=== PATIENT | female | born 1965 | race Caucasian/White ===

== ENCOUNTER 2017-05-07 14:02 | Emergency (ER) | payer BC ==
--- NOTE | 2017-05-07 14:15 | UC ---
Throat Pain/Nasal Andre HPI - HPI Summary HPI Summary: complaint of cough and nasal congestion that started 2 days ago productive cough sore throat mild headache left ear pain denies fever and chills using cough drops without relief requesting a z-pack - History of Current Complaint Hx Obtained From: Patient <Myah Morrissey - Last Filed: 05/07/17 14:30> <Dora Almeida - Last Filed: 05/08/17 14:24> - History of Current Complaint Chief Complaint: UCRespiratory Stated Complaint: SORE THROAT Time Seen by Provider: 05/07/17 14:08 - Allergies/Home Medications Allergies/Adverse Reactions: Allergies Allergy/AdvReac Type Severity Reaction Status Date / Time Phenobarbital Allergy Difficulty Verified 08/10/16 15:25 Breathing PMH/Surg Hx/FS Hx/Imm Hx Previously Healthy: Yes Cardiovascular History: Hypertension Neurological History: Seizures - Surgical History Surgical History: Yes Surgery Procedure, Year, and Place: left temporal lobe surgery - scraped off part of brain that causeed seizures. varicose vein surg - Family History Known Family History: Positive: Cardiac Disease - denies hx of renal, respiratory. Denies blood disorders in family., Diabetes Negative: Hypertension - Social History Occupation: Employed Full-time Lives: With Family Alcohol Use: Daily Alcohol Amount: 12 pk/day Substance Use Type: None Substance Use Comment - Amount & Last Used: Last tuesday or ; Day before pt was admin. Smoking Status (MU): Never Smoked Tobacco Have You Smoked in the Last Year: No - Immunization History Most Recent Influenza Vaccination: none Most Recent Tetanus Shot: unknown Most Recent Pneumonia Vaccination: none <Myah Morrissey - Last Filed: 05/07/17 14:30> Review of Systems Constitutional: Negative Skin: Negative Eyes: Negative ENT: Sore Throat, Ear Ache, Nasal Discharge Respiratory: Cough Cardiovascular: Negative Gastrointestinal: Negative Genitourinary: Negative Motor: Negative Neurovascular: Negative Musculoskeletal: Negative Neurological: Negative Psychological: Negative All Other Systems Reviewed And Are Negative: Yes <Myah Morrissey - Last Filed: 05/07/17 14:30> Physical Exam Triage Information Reviewed: Yes Appearance: No Pain Distress, Well-Nourished Vital Signs: Initial Vital Signs Temp 98.1 F 05/07/17 14:04 Pulse 84 05/07/17 14:04 Resp 16 05/07/17 14:04 Pulse Ox 100 05/07/17 14:04 Vital Signs Reviewed: Yes Eyes: Positive: Conjunctiva Clear ENT: Positive: Pharyngeal erythema, Nasal congestion, Nasal drainage, TMs normal. Negative: Tonsillar swelling, Tonsillar exudate Neck: Positive: No Lymphadenopathy Respiratory: Positive: Lungs clear, Normal breath sounds, No respiratory distress Cardiovascular: Positive: RRR, No Murmur, Pulses Normal Abdomen Description: Positive: Nontender, Soft Bowel Sounds: Positive: Present Musculoskeletal: Positive: No Edema Neurological: Positive: Alert Psychological Exam: Normal Skin Exam: Normal <Myah Morrissey - Last Filed: 05/07/17 14:30> Vital Signs: Initial Vital Signs Temp 98.1 F 05/07/17 14:04 Pulse 84 05/07/17 14:04 Resp 16 05/07/17 14:04 Pulse Ox 100 05/07/17 14:04 <Dora Almeida - Last Filed: 05/08/17 14:24> Throat Pain/Nasal Course/Dx - Differential Dx/Diagnosis Differential Diagnosis/HQI/PQRI: Pharyngitis, Tonsillitis, URI Provider Diagnoses: URI <Myah Morrissey - Last Filed: 05/07/17 14:30> Discharge <Myah Morrissey - Last Filed: 05/07/17 14:30> <Dora Almeida - Last Filed: 05/08/17 14:24> - Discharge Plan Condition: Stable Disposition: HOME Prescriptions: Benzonatate CAP* [Tessalon 100 MG CAP*] 100 mg PO TID #30 cap Patient Education Materials: Upper Respiratory Infection (ED) Referrals: Orlin Zacarias NP [Primary Care Provider] - Additional Instructions: VIRAL UPPER RESPIRATORY INFECTION (COMMON COLD) What is Viral Upper Respiratory Infection? Viral upper respiratory infection is the medical term for the common cold. Respiratory infections can be caused by either a virus or bacteria. The common cold is caused by a virus. The virus travels through the air and can be passed easily from one person to another. This is one reason that it is so important to cover your mouth when you cough or sneeze. When you cover your mouth you will get the virus on your hands. If you touch something with that hand the virus is spread to the object you touch. Because of this you should be sure to wash your hands often when you have a cold. Symptoms usually begin 1 to 3 days after the virus takes hold in your body. Other people can catch your cold even before you start to notice symptoms, which is one reason why colds are hard to prevent. Symptoms May Include: Scratchiness or tickling in the throat Sore throat Stuffy nose Generalized aches and pains Coughing or sneezing Feeling tired Treatment Recommendations: Drink plenty of clear, nonalcoholic fluids, such as water, sports drinks, or juice. For example, an average adult should drink 8 ounces every hour, a child 6 to 10 years should drink 4 ounces every hour, and a child under 6 should drink 1 to 2 ounces every hour. You should rest as much as possible. You can use a cool-mist humidifier or steam vaporizer to increase air moisture. This will make it easier to breathe. Remember that a steam vaporizer may contain hot water that can cause severe briones. If you smoke, stopsmoke irritates bronchial passages. If you are coughing up mucus, and milk seems to make the sputum thicker, do not eat or drink foods that contain milk. You want to try to cough up mucous whenever possible so that you dont get pneumonia. Do not use cough suppressant medicine without your healthcare providers OK. You should take all medications prescribed until completely gone, or as instructed. Non-prescription medicine such as acetaminophen (Tylenol) or ibuprofen (Motrin , Advil) may help your aches, pains, and fever. Do not take someone else's medicine, or penicillin tablets that you may have saved. You could cause a more serious problem than you already have. Don't bundle up to sweat out a fever. It only makes your fever worse. If you feel cold, cover up; if you feel warm, dress lightly. Attestation Statement User Type: Provider - I was available for consult. This patient was seen by the advanced practice provider. The patient was not presented to, seen by, or examined by me.-Christina <Dora Almeida - Last Filed: 05/08/17 14:24>
== END 2017-05-07 14:37 | disposition home or self-care (01) ==
LOC: UCEAST 14:02
DX: J06.9 Acute upper respiratory infection, unspecified (principal); I10 Essential (primary) hypertension; R56.9 Unspecified convulsions
CPT/HCPCS: 87651; 99212; G0463

== ENCOUNTER 2019-11-15 16:41 | Inpatient (IN) | payer BC ==
--- OUTSIDE RECORDS SUMMARY | 2019-11-15 16:50 | XMS REPORT | Continuity of Care Document ---
:1965 External Reference #:[id number] Author Name Luis Fernando Macias M.D. (transmitted by agent of provider Jami Conti) Address [address], [place] [address] Care Team Providers Name Role Phone Kd Israel MD - Hematology & Care Team Information [employer] Assembler Oncology John Vivar MD - Surgery Care Team Information [employer]ator As[employer]er [phone] Problems Active Problems Provider Date Cervical spondylosis without myelopathy Justin Johnson M.D. Onset: 08/10/2012 Chronic pain syndrome Justin Johnson M.D. Onset: 08/10/2012 Medications Director Of Gift Planning (Current) Use Justin Johnson M.D. Onset: 08/10/2012 Encounter Spontaneous ecchymosis Justin Johnson M.D. Onset: 08/10/2012 Depressive disorder Justin Johnson M.D. Onset: 09/21/2012 Partial seizure evolving to secondary April Robles M.D. Onset: 2014 generalized seizure Social History Type Date Description Comments Sex Unknown Tobacco Use Start: Unknown Never Smoked Cigarettes Smoking Status Reviewed: 09/19/19 Never Smoked Cigarettes ETOH Use Occasionally consumes alcohol Tobacco Use Start: Unknown Patient has never smoked Recreational Drug Use Denies Drug Use Exercise Type/Frequency Exercises regularly Allergies, Adverse Reactions, Alerts Active Allergies Reaction Severity Comments Date Phenobarbital 03/11/2011 Medications Active Medications SIG Qnty Indications Ordering Provider Date Carbamazepine 1 tab by 360tabs Luis Fernando Macias, 10/24/2012 200mg mouth four M.D. Tablets times a day Womens One Daily 1 tab by Unknown Tablets mouth daily Immunizations Description No Information Available Vital Signs Date Vital Result Comment 09/19/2019 9:15am Height 68 inches 5'8" Weight 130.00 lb per patient after being in hospital Heart Rate 89 /min BP Systolic Sitting 134 mmHg BP Diastolic Sitting 84 mmHg Respiratory Rate 16 /min O2 % BldC Oximetry 99 % BMI (Body Mass Index) 19.8 kg/m2 09/13/2018 9:21am Height 68 inches 5'8" Weight 156.12 lb Heart Rate 72 /min BP Systolic Sitting 144 mmHg BP Diastolic Sitting 80 mmHg Respiratory Rate 12 /min BMI (Body Mass Index) 23.7 kg/m2 Results Description No Information Available Procedures Description No Information Available Medical Devices Description No Information Available Encounters Description No Information Available Assessments Date Code Description Provider 09/19/2019 G40.209 Localization-related (focal) (partial) Luis Fernando Macias M.D. symptomatic epilepsy and epileptic syndromes with complex partial seizures, not intractable, without status epilepticus Plan of Treatment Future Appointment(s):09/24/2020 10:15 am - Luis Fernando [facility].D. at [facility]09/19/2019 - Luis Fernando Macias M.D.G40.209 Localization-related (focal) (partial) symptomatic epilepsy and epileptic syndromes with complex partial seizures, not intractable, without status epilepticusFollow up:Follow up in 1 yearRecommendations:Call me in 1 week to review labwork Functional Status Description No Information Available Mental Status Description No Information Available Referrals Description No Information Available
[2019-11-15] MEDS ORDERED: Morphine INJ* 2 MG/ML 1 ML SYRINGE (TWO MG - NEW SYRINGE VERSION) IV ONE ×2 (19:43→21:26)
[2019-11-15 20:01] LABS: ABS Lymphocytes 0.2 10^3/ul (1.0-4.8); ABS Monocytes 0.6 10^3/ul (0-0.8); ABS Neutrophils 5.3 10^3/ul (1.5-7.7); Hematocrit 28 % (35-47); Hemoglobin 9.8 g/dL (12.0-16.0); Lymphocyte % 2.7 %; Mean Corpuscular HGB Conc 35 g/dL (31-36); Mean Corpuscular Hemoglobin 32 pg (27-31); Mean Corpuscular Volume 92 fL (80-97); Platelet Count 116 10^3/uL (150-450); Red Blood Count 3.05 10^6 /uL (3.70-4.87); Red Cell Distribution Width 13 % (10-15); White Blood Count 6.2 10^3/uL (3.5-10.8)
[2019-11-15] MEDS ORDERED: Ondansetron INJ* 2 MG/ML VIAL IV ONE (20:26)
[2019-11-15 20:32] LABS: ALT 28 U/L (7-52); AST 59 U/L (13-39); Albumin 4.3 g/dL (3.2-5.2); Albumin/Globulin Ratio 1.8 (1-3); Alkaline Phosphatase 201 U/L (34-104); BUN/Creatinine Ratio 12.5 (8-20); Blood Urea Nitrogen 9 mg/dL (6-24); CO2 Carbon Dioxide 25 mmol/L (22-32); Chloride 83 mmol/L (101-111); Creatine Kinase 557 U/L (10-223); EGFR African American 102.1 (>60); EGFR Non-African American 84.4 (>60); Globulin 2.4 g/dL (2-4); Glucose 126 mg/dL (70-100); Potassium 3.4 mmol/L (3.5-5.0); Total Protein 6.7 g/dL (6.4-8.9)
[2019-11-15 20:36] LABS: Anion Gap 11 mmol/L (2-11); Sodium 119 mmol/L (135-145)
[2019-11-15] MEDS ORDERED: NS 0.9% 1000 ML** 2,000 ML IV ONE (20:38)
[2019-11-15] MEDS ORDERED: Iohexol 300* (CONTRAST) 10 ML SDV IV ONE (20:42)
[2019-11-15 21:23] LABS: Magnesium 1.8 mg/dL (1.9-2.7)
[2019-11-15 21:24] LABS: Alcohol < 10 mg/dL (<10)
[2019-11-15] MEDS ORDERED: carBAMazepine TAB(*) 200 MG PO ONE (21:34)
--- NOTE | 2019-11-15 21:36 | ED ---
Adult Trauma - HPI Summary HPI Summary: 54-year-old female presents with a fall last night. She states that she slipped in her bathroom and landed on her left side. She states she does not believe she passed out. States she may have hit her head. She claims she did not have a seizure. She denies any neck pain. She admits to left rib pain and left back and abdominal pain. She also admits to left shoulder pain. She is not on a blood thinners. She does have a history of seizures. She does drink alcohol daily. - History of Current Complaint Chief Complaint: EDFall Stated Complaint: BACK PAIN PER PT Time Seen by Provider: 11/15/19 19:23 Pain Intensity: 9 - Additional Pertinent History Primary Care Physician: ANDRES - Allergy/Home Medications Allergies/Adverse Reactions: Allergies Allergy/AdvReac Type Severity Reaction Status Date / Time MS Phenobarbital Allergy Difficulty Verified 08/10/16 15:25 [Phenobarbital] Breathing PMH/Surg Hx/FS Hx/Imm Hx Endocrine/Hematology History: Denies: Hx Diabetes Cardiovascular History: Denies: Hx Hypertension History: Reports: Other Problems/Disorders - uti Neurological History: Reports: Hx Seizures - h/o seizure d/o s/p temporal lobectomy Psychiatric History: Reports: Hx Anxiety, Hx Depression, Hx Substance Abuse - ETOH - Surgical History Surgery Procedure, Year, and Place: left temporal lobe surgery - scraped off part of brain that causeed seizures. varicose vein surg Hx Anesthesia Reactions: No - Immunization History Date of Tetanus Vaccine: UKN Date of Influenza Vaccine: NO Immunizations Up to Date: No Infectious Disease History: No Infectious Disease History: Denies: Hx Clostridium Difficile, Hx Hepatitis, Hx Human Immunodeficiency Virus (HIV), Hx of Known/Suspected MRSA, Hx Shingles, Hx Tuberculosis, Hx Known/ Suspected VRE, Hx Known/Suspected VRSA, History Other Infectious Disease, Traveled Outside the [place] in Last 30 Days - Family History Known Family History: Positive: Cardiac Disease - denies hx of renal, respiratory. Denies blood disorders in family., Diabetes Negative: Hypertension - Social History Alcohol Use: Daily Alcohol Amount: 12 PK OR MORE DAILY Hx Substance Use: No Substance Use Type: Reports: None Substance Use Comment - Amount & Last Used: Last tuesday or ; Day before pt was admin. Hx Tobacco Use: No Smoking Status (MU): Never Smoked Tobacco Have You Smoked in the Last Year: No Review of Systems Negative: Fever Positive: Other - left rib pain. Negative: Chest Pain Negative: Shortness Of Breath Positive: Myalgia - left shoulder pain, back pain Positive: Bruising All Other Systems Reviewed And Are Negative: Yes Physical Exam Triage Information Reviewed: Yes Vital Signs On Initial Exam: Initial Vitals Temp Pulse Resp BP Pulse Ox 98.2 F 100 16 142/80 99 11/15/19 16:43 11/15/19 16:43 11/15/19 16:43 11/15/19 16:43 11/15/19 16:43 Vital Signs Reviewed: Yes Appearance: Positive: Well-Appearing Skin: Positive: Other - ecchymosis to left side of back and ribs and LUQ Head/Face: Positive: Normal Head/Face Inspection Eyes: Positive: Normal, EOMI, ANTONIO, Conjunctiva Clear ENT: Positive: Normal ENT inspection, Pharynx normal, TMs normal Respiratory/Lung Sounds: Positive: Clear to Auscultation, Breath Sounds Present Cardiovascular: Positive: Normal, RRR Abdomen Description: Positive: Soft, Other: - tenderness in LUQ Bowel Sounds: Positive: Present Musculoskeletal: Positive: Other Neurological: Positive: Sensory/Motor Intact, Alert, Oriented to Person Place, Time, CN Intact II-III Psychiatric: Positive: Normal - Javy Coma Scale Best Eye Response: 4 - Spontaneous Best Motor Response: 6 - Obeys Commands Best Verbal Response: 5 - Oriented Coma Scale Total: 15 Procedures - Sedation Patient Received Moderate/Deep Sedation with Procedure: No Diagnostics - Vital Signs Vital Signs Temp Pulse Resp BP Pulse Ox 11/15/19 20:12 19 11/15/19 18:46 99.7 F 98 18 128/93 98 11/15/19 16:43 98.2 F 100 16 142/80 99 - Laboratory Lab Results: Lab Results 11/15/19 11/15/19 11/15/19 Range/Units 19:51 19:51 19:51 WBC 6.2 (3.5-10.8) 10^3/uL RBC 3.05 L (3.70-4.87) 10^6 /uL Hgb 9.8 L (12.0-16.0) g/dL Hct 28 L (35-47) % MCV 92 (80-97) fL MCH 32 H (27-31) pg MCHC 35 (31-36) g/dL RDW 13 (10-15) % Plt Count 116 L (150-450) 10^3/uL MPV 7.0 L (7.4-10.4) fL Neut % (Auto) 86.9 % Lymph % (Auto) 2.7 % Barnes % (Auto) 10.2 % Eos % (Auto) 0.0 % Baso % (Auto) 0.2 % Absolute Neuts (auto) 5.3 (1.5-7.7) 10^3/ul Absolute Lymphs (auto) 0.2 L (1.0-4.8) 10^3/ul Absolute Monos (auto) 0.6 (0-0.8) 10^3/ul Absolute Eos (auto) 0.0 (0-0.6) 10^3/ul Absolute Basos (auto) 0.0 (0-0.2) 10^3/ul Absolute Nucleated RBC 0.0 10^3/ul Nucleated RBC % 0.0 Sodium 119 L* (135-145) mmol/L Potassium 3.4 L (3.5-5.0) mmol/L Chloride 83 L (101-111) mmol/L Carbon Dioxide 25 (22-32) mmol/L Anion Gap 11 (2-11) mmol/L BUN 9 (6-24) mg/dL Creatinine 0.72 (0.51-0.95) mg/dL Est GFR ( Amer) 102.1 (>60) Est GFR (Non-Af Amer) 84.4 (>60) BUN/Creatinine Ratio 12.5 (8-20) Glucose 126 H (70-100) mg/dL Lactic Acid 1.7 (0.5-2.0) mmol/L Calcium 9.0 (8.6-10.3) mg/dL Magnesium 1.8 L (1.9-2.7) mg/dL Total Bilirubin 1.40 H (0.2-1.0) mg/dL AST 59 H (13-39) U/L ALT 28 (7-52) U/L Alkaline Phosphatase 201 H (34-104) U/L Total Creatine Kinase 557 H (10-223) U/L Total Protein 6.7 (6.4-8.9) g/dL Albumin 4.3 (3.2-5.2) g/dL Globulin 2.4 (2-4) g/dL Albumin/Globulin Ratio 1.8 (1-3) Serum Alcohol < 10 (<10) mg/dL Result Diagrams: 11/15/19 19:51 11/15/19 23:06 Lab Statement: Any lab studies that have been ordered have been reviewed, and results considered in the medical decision making process. - Radiology humerus Radiology Interpretation Completed By: ED Physician Summary of Radiographic Findings: proximal humerus fracture - CT chest, abd, pelvis CT Interpretation Completed By: Radiologist Summary of CT Findings: IMPRESSION: 1. There is small left pleural effusion and there is bibasilar atelectatic change or scarring. 2. Only partly included in the scan range is likely acute comminuted fracture of the proximal left humerus. 3. There is likely swelling and hematoma in the region of the left shoulder and upper left lateral chest wall and left axillary region from possible left humeral fracture but only partly included in the field of view. - EKG No standard instances Cardiac Rate: NL EKG Rhythm: Sinus Rhythm Summary of EKG Findings: sinus rhythm Re-Evaluation - Re-Evaluation First Eval Re-Evaluation Time: 21:36 Change: Unchanged Comment: pain still present Second Eval Comment: vomited up seizure meds so will dose again Adult Trauma Course/Dx - Course Course Of Treatment: 54-year-old female presents with a fall last night. She states that she slipped in her bathroom and landed on her left side. She states she does not believe she passed out. States she may have hit her head. She claims she did not have a seizure. She denies any neck pain. She admits to left rib pain and left back and abdominal pain. She also admits to left shoulder pain. She is not on a blood thinners. She does have a history of seizures. On exam has ecchymosis of the left back and minimial in left upper quadrant. Tenderness over ribs and lower back. Has ecchymosis and edema noted of left humerus and shoulder. X-ray shoulder shows proximal humerus fracture. wbc 12. Sodium is 119. CK is 500. potassium is 3.4. gave IV fluids. she has had hyponatremia before. morphine is causing her to vomit so will switch to norco. CT chest, abd no fracture. placed in sling. spoke with dr mckinley who will see tomorrow. spoke with dr luciano who agrees to admit. - Diagnoses Differential Diagnosis/HQI/PQRI: Positive: Contusion(s), Fracture, Dislocation Provider Diagnoses: Fall, Proximal humerus fracture, Hyponatremia, Rib contusion, Back pain - Critical Care Time Critical Care Time: 30-74 min - 60 mins Discharge ED - Sign-Out/Discharge Documenting (check all that apply): Patient Departure - Discharge Plan Condition: Stable Disposition: ADMITTED TO [facility] Referrals: Orlin Zacarias NP [Primary Care Provider] - - Billing Disposition and Condition Condition: STABLE Disposition: Admitted to [facility]
[2019-11-15] MEDS ORDERED: HYDROcodone/ACETAMIN 5-325 MG* 1 TAB PO ONE (23:02)
[2019-11-15] MEDS ORDERED: carBAMazepine ER TAB(*) 200 MG PO ONE (23:03)
[2019-11-15] MEDS: NS 0.9% 1000 ML** 2,000 ML IV ONE (23:20)
[2019-11-15 23:28] LABS: Carbamazepine 7.6 mcg/mL (4.0-12.0)
[2019-11-15 23:33] LABS: Calcium 8.3 mg/dL (8.6-10.3); EGFR African American 126.1 (>60); EGFR Non-African American 104.2 (>60); Potassium 3.3 mmol/L (3.5-5.0)
[2019-11-15] MEDS ORDERED: Potassium Chlor TAB* 20 MEQ TAB.ER PO ONE (23:39)
[2019-11-16 00:05] LABS: Urine Appearance Cloudy; Urine Bilirubin Negative (Negative); Urine Blood 1+ (Negative); Urine Color Yellow; Urine Glucose Negative (Negative); Urine Ketones Negative (Negative); Urine Nitrite Negative (Negative); Urine Protein Negative (Negative); Urine Specific Gravity 1.016 (1.010-1.030); Urine Urobilinogen Negative (Negative)
[2019-11-16 00:09] LABS: Urine Potassium Concentration 26.5 mmol/L
[2019-11-16 00:11] LABS: Urine Bacteria Absent (Absent); Urine Red Blood Cell Trace(0-2/hpf) (Absent); Urine White Blood Cell 3+(>20/hpf) (Absent)
[2019-11-16] MEDS ORDERED: NS 0.9% 1000 ML** 1,000 ML IV SCH (00:15)
[2019-11-16] MEDS ORDERED: Thiamine INJ* 100 MG/ML 2 ML VIAL IM ONE (00:20)
[2019-11-16] MEDS ORDERED: Lorazepam PYXIS KEY PRN (00:26)
[2019-11-16] MEDS ORDERED: Magnesium Sulfate 2 GM IV* 2 GM/50 ML BAG IVPB ONE (00:56)
[2019-11-16] MEDS: LORazepam INJ* 2 MG/ML 1 ML VIAL IV SCH ×3 (01:39→16:58)
[2019-11-16] MEDS: LORazepam INJ* 2 MG/ML 1 ML VIAL IV PUSH SCH (01:39)
[2019-11-16] MEDS: Ondansetron INJ* 2 MG/ML VIAL IV PRN ×2 (01:39→11:00)
[2019-11-16] MEDS: Morphine INJ* 2 MG/ML 1 ML SYRINGE (TWO MG - NEW SYRINGE VERSION) IV PRN ×4 (01:44→23:21)
[2019-11-16] MEDS: Multivitamins/Minerals TAB PO SCH ×2 (01:45→09:15)
[2019-11-16] MEDS: KCL 20 MEQ/100 ML IVPREMIX* 20 MEQ/100 ML BAG IV SCH ×3 (01:45→06:11)
--- NOTE | 2019-11-16 03:45 | HP ---
CC: Orlin Zacarias NP; Dr. Margie Akbar * ADMISSION HISTORY AND PHYSICAL: DATE OF ADMISSION: 11/16/19 CHIEF COMPLAINT: Fall and left arm pain. HISTORY OF PRESENT ILLNESS: This is a 54-year-old female with past medical history of alcohol abuse, history of seizure disorder, status post left temporal lobectomy in 1986, on chronic Tegretol use, was in her usual state of health. She usually drinks about a 6 pack of beer prior to going to bed and she did so even day prior on the night of 11/14/19. However, she got up at night to go to the bathroom at around 2 a.m. on 11/15/19 and felt that the floor was slippery and fell and landed on her left side. She was having some severe pain. She also stated that just prior to falling, she also felt a little dizzy. She claims that she never actually had any seizure and she never lost any consciousness during that fall. After some time, she dragged herself into the bedroom. She was having severe tenderness and pain and once the arrived, they finally decided to bring her to the ER for further evaluation as her pain was not subsiding and she was bruised heavily. The patient otherwise offers no chest pain, no palpitations. She did have an episode of vomiting after she received morphine in the emergency room. No other numbness or tingling. No urinary burning sensation or pain with urination. No fever or chills. PAST MEDICAL HISTORY: As mentioned: 1. Alcohol abuse. She has been into multiple alcohol detox centers before and currently does not wish to be in any alcohol detox treatment. 2. History of seizure disorder as a child and required left temporal lobectomy at [facility] in 1986. Since then, she has been on Tegretol. 3. Status post right vein surgery in 2006. 4. Left carpal tunnel release surgery in 2006 as well. 5. Rheumatoid arthritis. 6. She has had cataract surgery 2 months ago, at which point she was told that her labs were otherwise normal. 7. She was hospitalized in 2016 with sepsis secondary to E. coli UTI requiring multiple days of ICU treatment, at which point she was also noted to be severely hyponatremic, thought to be due to beer potomania. During that admission, she was also having acute kidney injury and liver dysfunction secondary to her alcohol use. HOME MEDICATIONS: The patient is on Tegretol 200 mg q.i.d.; however, she takes them all at the same time on a daily basis. ALLERGIES: The patient is allergic to PHENOBARBITAL, causes difficulty in breathing. FAMILY HISTORY: Father and grandfather had high blood pressure, but otherwise no family history of any heart disease, diabetes, or cancer. SOCIAL HISTORY: As mentioned, she does drink alcohol on a daily basis, previously requiring multiple alcoholic rehabs. According to the , she drinks 6 pack of beer on a daily basis and she is currently working at [employer]. Does have a baseline unsteady gait for the last 2 to 3 years, but does not require any assistive devices. She lives with her and has 3 children, and the is otherwise the healthcare proxy. We initially discussed the possibility of DNR; however, after much discussion between the and the patient, she agreed to full code and any intubation as necessary. REVIEW OF SYSTEMS: A 14-point review of systems did not reveal any new information other than what is mentioned in the HPI. PHYSICAL EXAMINATION GENERAL: The patient is awake, alert, and oriented x3, in no acute respiratory distress. VITAL SIGNS: Temperature was recorded at 99.7 max, BP was noted to be elevated initially at 165/88, heart rate was elevated to 124, improved to 94 during my evaluation, respiratory rate was 18, saturating 94% on room air. HEAD AND NECK: Atraumatic, normocephalic. Bilateral pupils are reactive. Oral mucosa was moist. Neck: Supple. No jugular venous distention. LUNGS: Clear to auscultation in the anterior aspect. Could not examine posteriorly as the patient was having severe pain with rotating. HEART: S1, S2. Regular rate and rhythm. ABDOMEN: Soft, nontender, nondistended with positive bowel sounds. EXTREMITIES: No cyanosis, clubbing, or edema, but did have some onychomycosis of the lower extremities. The patient had severe bruising and swelling of the left upper extremity. The patient did have some tremors during my evaluation. SKIN: The patient had multiple hematomas, especially on the left side posterior aspect along with substernal area and also on the left arm. There was also some bruising noted on the right lower rib area. DIAGNOSTIC STUDIES/LAB DATA: CBC shows normal white count, hemoglobin was 9.8 , hematocrit 28, platelet count was noted to be 116. Comprehensive metabolic panel shows sodium of 119, potassium 3.4, chloride 83, random glucose elevated at 126. Magnesium low at 1.8. Total bili was minimally elevated at 1.4, AST elevated at 59, ALT 28, alkaline phosphatase elevated at 201. Total creatine kinase was 557. Urinalysis was positive for 1+ blood, also positive for 2+ leuk esterase, urine sodium was noted to be 24, potassium 26. Urine osmolality was 240. Serum osmolality 253. Carbamazepine level was noted to be 7.6 which is therapeutic. Serum alcohol level was noted to be less than 10. Imaging: CT chest suggested there is a small left pleural effusion and bibasilar atelectatic changes or scarring and acute comminuted fracture of the proximal left humerus, swelling and hematoma in the region of the left shoulder and left upper lateral chest wall and left axillary region from possible left humeral fracture. CT abdomen and pelvis showing no acute traumatic CT pathology of abdomen and pelvis. No abnormalities in the liver or spleen noted. CT brain showed stable encephalomalacia of the left temporal lobe likely related to the prior surgery, no acute intracranial pathology. EKG showed sinus tachycardia at 100 beats per minute without any ST elevations. When compared to her older EKG from July 2016, there was SVT noted with a similar QRS waveform, and the EKG prior to that was showing sinus rhythm at 96 beats per minute with some tall peaking T waves from 07/17/16. Shoulder images and arm images show persistent comminuted fracture of the humerus at the proximal region. Official radiology read is still pending. IMPRESSION: This is a 54-year-old female with a history of alcohol abuse, beer potomania, seizure disorder, here due to fall, noted to have a left humeral fracture, also noted to have hypoosmolar hyponatremia, hypokalemia, hypomagnesemia. ASSESSMENT AND PLAN: 1. Fall with left humeral fracture. Orthopedics consulted. The patient was placed on a sling in the ER. We will monitor from now. 2. Hypoosmolar hyponatremia, likely secondary to beer potomania. I will start the patient on IV hydration and get serial sodium levels. 3. Hypokalemia. Likely secondary to renal losses due to her alcohol abuse. We will replace potassium. 4. Hypomagnesemia. We will replace magnesium. 5. Anemia and thrombocytopenia, likely alcohol abuse causing bone marrow toxicity with a component of vitamin deficiency due to her exclusive dependency on alcohol for nutrition. We will start the patient on thiamine and multivitamins. 6. History of seizure disorder. We will start the patient on seizure precautions and restart her home Tegretol dose. 7. Alcohol abuse with early signs of withdrawal. We will place the patient in ICU for close monitoring for both the sodium and the alcohol withdrawal protocol including Ativan for any withdrawal signs and seizure precautions. 8. Hypertension, likely secondary to pain. We will initiate opiates for pain. The patient did have an episode of vomiting. We will also add Zofran. 9. Asymptomatic bacteriuria. We will follow up cultures and if the patient develops any fever, consider treatment with antibiotics. 10. DVT prophylaxis with sequential compression device. 11. Code status: Currently agrees to being full code. [id number]/[id number] #: [id number] MTDD
[2019-11-16 05:37] LABS: Albumin 3.5 g/dL (3.2-5.2); BUN/Creatinine Ratio 14.3 (8-20); EGFR African American 136.5 (>60); EGFR Non-African American 112.8 (>60); Potassium 3.8 mmol/L (3.5-5.0); Total Protein 5.6 g/dL (6.4-8.9)
[2019-11-16 05:38] LABS: Albumin/Globulin Ratio 1.7 (1-3); Globulin 2.1 g/dL (2-4); Total Bilirubin 0.8 mg/dL (0.2-1.0)
[2019-11-16 06:01] LABS: ABS Lymphocytes 0.2 10^3/ul (1.0-4.8); ABS Monocytes 0.3 10^3/ul (0-0.8); Hematocrit 22 % (35-47); Hemoglobin 7.6 g/dL (12.0-16.0); Lymphocyte % 6.5 %; Mean Corpuscular HGB Conc 35 g/dL (31-36); Mean Corpuscular Hemoglobin 33 pg (27-31); Mean Corpuscular Volume 94 fL (80-97); Mean Platelet Volume 7.4 fL (7.4-10.4); Platelet Count 70 10^3/uL (150-450); Red Blood Count 2.32 10^6 /uL (3.70-4.87); Red Cell Distribution Width 13 % (10-15); White Blood Count 3.5 10^3/uL (3.5-10.8)
[2019-11-16] MEDS ORDERED: NS 0.45% 1000 ML BAG* 1,000 ML IV SCH (07:00)
--- NOTE | 2019-11-16 08:19 | PN ---
Subjective Date of Service: 11/16/19 Interval History: Was admitted early this morning. Reports Left arm pain, 3, currently in a sling. No chest pain, no headaches, no seizure like activity Family History: Unchanged from Admission Social History: Unchanged from Admission Past Medical History: Unchanged from Admission Objective Active Medications: Carbamazepine (Tegretol Tab(*)) 200 mg PO QID [facility] Sodium Chloride (Ns 0.45% 1000 Ml Bag*) 1,000 mls @ 125 mls/hr IV PER RATE [facility] Last Admin: 11/16/19 06:34 Dose: 125 mls/hr Lorazepam (Ativan Inj*) 0 - 3 mg IV PUSH .PER [facility] PROTOCOL [facility]; Protocol Last Admin: 11/16/19 01:39 Dose: 1.5 mg Lorazepam (Ativan Inj*) 1 mg IV Q8H [facility]; Taper Stop: 11/18/19 20:59 Last Admin: 11/16/19 01:39 Dose: 1 mg Magnesium Oxide (Magox 400 Tab*) 400 mg PO BID [facility] Miscellaneous (Ativan Pyxis Oden) 1 ea N/A .PYXIS ODEN PRN PRN Reason: PER PROTOCOL Morphine Sulfate (Morphine Inj (Syringe))*) 2 mg IV Q4H PRN PRN Reason: PAIN - SEVERE Last Admin: 11/16/19 01:44 Dose: 2 mg Multivitamins/Minerals (Theragran/Minerals Tab*) 1 tab PO DAILY [facility] Last Admin: 11/16/19 01:45 Dose: 1 tab Ondansetron HCl (Zofran Inj*) 4 mg IV Q4H PRN PRN Reason: NAUSEA Last Admin: 11/16/19 01:39 Dose: 4 mg Thiamine HCl (Vitamin B-1 Tab*) 100 mg PO DAILY [facility] Vital Signs - 8 hr 11/16/19 11/16/19 11/16/19 00:19 00:49 01:00 Temperature Pulse Rate 100 96 Respiratory 19 19 22 Rate Blood Pressure 165/88 162/78 (mmHg) O2 Sat by Pulse 92 92 Oximetry 11/16/19 11/16/19 11/16/19 01:03 01:06 01:10 Temperature 99.3 F 99.3 F Pulse Rate 97 124 100 Respiratory 22 28 19 Rate Blood Pressure 162/79 165/88 (mmHg) O2 Sat by Pulse 95 93 92 Oximetry 11/16/19 11/16/19 11/16/19 01:13 01:15 01:30 Temperature Pulse Rate 100 95 91 Respiratory 18 22 17 Rate Blood Pressure 162/83 162/79 158/78 (mmHg) O2 Sat by Pulse 95 94 93 Oximetry 11/16/19 11/16/19 11/16/19 01:39 01:44 01:45 Temperature Pulse Rate 90 Respiratory 20 21 16 Rate Blood Pressure 150/73 (mmHg) O2 Sat by Pulse 93 Oximetry 11/16/19 11/16/19 11/16/19 02:00 02:01 02:15 Temperature Pulse Rate 109 134 93 Respiratory 22 22 21 Rate Blood Pressure 127/95 152/79 (mmHg) O2 Sat by Pulse 98 97 98 Oximetry 11/16/19 11/16/19 11/16/19 02:31 02:45 03:00 Temperature Pulse Rate 106 93 93 Respiratory 21 20 12 Rate Blood Pressure 168/77 142/69 160/85 (mmHg) O2 Sat by Pulse 97 99 99 Oximetry 11/16/19 11/16/19 11/16/19 03:25 04:00 05:00 Temperature 99.5 F Pulse Rate 88 98 Respiratory 11 14 Rate Blood Pressure 158/68 158/71 (mmHg) O2 Sat by Pulse 97 97 Oximetry 11/16/19 11/16/19 11/16/19 06:00 07:00 07:43 Temperature 99.1 F Pulse Rate 96 95 Respiratory 15 25 Rate Blood Pressure 171/82 152/81 (mmHg) O2 Sat by Pulse 99 94 Oximetry Appearance: She is lying in bed, not in distress Eyes: PERRLA Ears/Nose/Mouth/Throat: Mucous Membranes Moist Respiratory: Symmetrical Chest Expansion and Respiratory Effort, Clear to Auscultation Cardiovascular: NL Sounds; No Murmurs; No JVD, RRR, No Edema Abdominal: NL Sounds; No Tenderness; No Distention, No Hepatosplenomegaly Extremities: No Edema, - - Left arm in a sling, radial pulse is 2+ bilaterally, sensation to hands intact, hands are warm Neurological: Alert and Oriented x 3, - - no tremors noted. Result Diagrams: 11/16/19 05:14 11/16/19 05:14 Additional Lab and Data: Lab Results 11/15/19 11/15/19 11/15/19 Range/Units 19:51 19:51 19:51 WBC 6.2 (3.5-10.8) 10^3/uL RBC 3.05 L (3.70-4.87) 10^6 /uL Hgb 9.8 L (12.0-16.0) g/dL Hct 28 L (35-47) % MCV 92 (80-97) fL MCH 32 H (27-31) pg MCHC 35 (31-36) g/dL RDW 13 (10-15) % Plt Count 116 L (150-450) 10^3/uL MPV 7.0 L (7.4-10.4) fL Neut % (Auto) 86.9 % Lymph % (Auto) 2.7 % [place] % (Auto) 10.2 % Eos % (Auto) 0.0 % Baso % (Auto) 0.2 % Absolute Neuts (auto) 5.3 (1.5-7.7) 10^3/ul Absolute Lymphs (auto) 0.2 L (1.0-4.8) 10^3/ul Absolute Monos (auto) 0.6 (0-0.8) 10^3/ul Absolute Eos (auto) 0.0 (0-0.6) 10^3/ul Absolute Basos (auto) 0.0 (0-0.2) 10^3/ul Absolute Nucleated RBC 0.0 10^3/ul Nucleated RBC % 0.0 Sodium 119 L* (135-145) mmol/L Potassium 3.4 L (3.5-5.0) mmol/L Chloride 83 L (101-111) mmol/L Carbon Dioxide 25 (22-32) mmol/L Anion Gap 11 (2-11) mmol/L BUN 9 (6-24) mg/dL Creatinine 0.72 (0.51-0.95) mg/dL Est GFR ( Amer) 102.1 (>60) Est GFR (Non-Af Amer) 84.4 (>60) BUN/Creatinine Ratio 12.5 (8-20) Glucose 126 H (70-100) mg/dL Lactic Acid 1.7 (0.5-2.0) mmol/L Calcium 9.0 (8.6-10.3) mg/dL Magnesium 1.8 L (1.9-2.7) mg/dL Total Bilirubin 1.40 H (0.2-1.0) mg/dL AST 59 H (13-39) U/L ALT 28 (7-52) U/L Alkaline Phosphatase 201 H (34-104) U/L Total Creatine Kinase 557 H (10-223) U/L Total Protein 6.7 (6.4-8.9) g/dL Albumin 4.3 (3.2-5.2) g/dL Globulin 2.4 (2-4) g/dL Albumin/Globulin Ratio 1.8 (1-3) Serum Alcohol < 10 (<10) mg/dL Microbiology and Other Data: Microbiology 11/16/19 01:17 Nasal Screen MRSA (PCR) - Final Nasal Mrsa Not Detected Assess/Plan/Problems-Billing Assessment: - Patient Problems (1) Left humeral fracture Current Visit: Yes Status: Acute Code(s): S42.302A - UNSP FRACTURE OF SHAFT OF HUMERUS, LEFT ARM, INIT SNOMED Code(s): 29864641 Comment: Will follow up ortho recommendations CT pending. pain control maintain NPO for now, until we know regarding possible surgery. (2) Alcohol abuse Current Visit: No Status: Acute Code(s): F10.10 - ALCOHOL ABUSE, UNCOMPLICATED SNOMED Code(s): 52688294 Comment: on [facility] protocol getting thiamine (3) Hyponatremia Current Visit: No Status: Acute Code(s): E87.1 - HYPO-OSMOLALITY AND HYPONATREMIA SNOMED Code(s): 91138071 Comment: Improving, but slowing the rate of correction now- has been changed to 1/2 NS by the night hospitalist. will follow up repeat Na. in setting of beer use (4) Seizure disorder Current Visit: No Status: Acute Code(s): G40.909 - EPILEPSY, UNSP, NOT INTRACTABLE, WITHOUT STATUS EPILEPTICUS SNOMED Code(s): 667622673 Comment: continue home regimen tegretol (5) Acute on chronic anemia Current Visit: Yes Status: Acute Code(s): D64.9 - ANEMIA, UNSPECIFIED SNOMED Code(s): 472857354 Comment: Hb on admission around 9, this AM around 7, owenley lorenzoal, prior work up revealed WNL B12 and folate levels, and also had iron studies which did not reveal iron def. chronic anemia could be due to Bone marrow affects of skilled nursing alcohol use will get stool occult (6) Thrombocytopenia Current Visit: Yes Status: Acute Code(s): D69.6 - THROMBOCYTOPENIA, UNSPECIFIED SNOMED Code(s): 148893147 Comment: dilutional and due to BM suppression due to chronic ETOH use. (7) DVT prophylaxis Current Visit: Yes Status: Acute Code(s): Z29.9 - ENCOUNTER FOR PROPHYLACTIC MEASURES, UNSPECIFIED SNOMED Code(s): 481979679 Comment: SCD
--- NOTE | 2019-11-16 08:54 | CONS ---
ORTHOPEDIC CONSULTATION NOTE: DATE OF CONSULT: 11/16/19 Thank you for this orthopedic consultation. CHIEF COMPLAINT: Left shoulder pain. HISTORY OF PRESENT ILLNESS: Ms. Gonzalez is a 54-year-old female with history of alcohol abuse, seizure disorder, who had a fall in her home on 11/14/19. She fell in the bathroom overnight, landing on her left side. She is left-hand dominant. She had immediate 10/10 pain in the left shoulder. Any attempt to move the shoulder increased her pain. Only immobilization decreased her pain. The patient was brought to the emergency room by her . She was noted to have vomiting, hyponatremia, and a left proximal humerus fracture. We are consulted for orthopedic fracture care. PAST MEDICAL HISTORY: Alcohol abuse. She has been in multiple alcohol detox centers before and currently does not wish any information on this, history of seizure disorder which required left temporal lobectomy at [facility] in 1986. She has been on Tegretol since then, rheumatoid arthritis, cataracts, history of E. coli UTI and sepsis in 2016 requiring ICU treatment, history of severe hyponatremia from alcohol use, history of acute kidney and liver disease due to alcohol use. PAST SURGICAL HISTORY: Above mentioned left temporal lobectomy, vein surgery, left carpal tunnel release. HOME MEDICATIONS: Tegretol 200 mg 4 times a day. ALLERGIES: PHENOBARBITAL. FAMILY HISTORY: Hypertension on paternal side. SOCIAL HISTORY: The patient lives with her . She drinks at least 6 beers per day. She works at [employer]. She has a baseline unsteady gait for the last 3 years. She is currently full code. Left-hand dominant. REVIEW OF SYSTEMS: Fourteen systems reviewed with the patient today, positive for left shoulder pain, recent fall, chronic alcohol abuse, seizure disorder, hyponatremia. Otherwise review of systems negative or not relevant according to the patient. PHYSICAL EXAMINATION: Vitals: Temperature 99.5, heart rate 95, blood pressure 152/81. General: The patient is a well-nourished female, in no apparent distress, alert, oriented x3. Pleasant mood, appropriate affect. Gait is not assessed. HEENT: Atraumatic, normocephalic. Pupils equal and reactive to light. Chest: Unlabored breathing. Heart: S1, S2. Abdomen: Soft, nontender , nondistended. Right Upper Extremity: The patient's skin is intact. No abrasions or open wounds. She can move the shoulder, elbow, and wrist without any pain. 2+ palpable radial pulse. Left Upper Extremity: The patient has extensive swelling and ecchymosis around the left shoulder. The upper arm and lower arm are soft and compressible, however. She has tenderness to palpation around the entire shoulder. She does demonstrate motion of the elbow without pain. She can flex and extend her wrist without pain. She demonstrates thumbs up, A-OK and cross finger sign. She reports full sensation to light touch in ulnar distributions including over the deltoid muscle. 2+ palpable radial pulse. Bilateral Lower Extremities: The patient's skin is intact. She can flex the hip and knees without any pain. She demonstrates dorsiflexion, plantar flexion. She reports full sensation to light touch and has 2+ palpable DP pulse. DIAGNOSTIC STUDIES/LAB DATA: Labs show white blood cells 3.5, hematocrit 23 down from 28, platelets are 70 from 116. Sodium up to 126 from 119, potassium 3.8 from 3.4, chloride 96, BUN and creatinine 8 and 0.56. AST 42, ALT 21, alk phos 168. Urine positive for leukocyte esterase and white blood cells. Multiple x-rays of the left shoulder and humerus show a comminuted displaced left proximal humerus fracture. There is significant proximal migration of the shaft up into or near the humeral head superior surface. Humeral head remains reduced in the glenoid. ASSESSMENT AND PLAN: Ms. Gonzalez is a 54-year-old left hand dominant female status post fall with a comminuted displaced left proximal humerus fracture. This is unfortunately her dominant side. We discussed operative and nonoperative treatment options. She understands I am unsure that she is an appropriate surgical candidate because of her alcohol abuse, frequent electrolyte imbalances, and seizure disorder. She has a high likelihood of fall and noncompliance in my opinion. The patient is quite certain that she would like to proceed with surgical intervention. I explained that I do not perform this type of surgery, but I will consult one of my colleagues to come discuss this with her. She understands I will defer to my colleagues on whether or not she is a surgical candidate. For now, she will be in a sling, nonweightbearing of the left upper extremities. She should have p.r.n. analgesia for pain control. She should let the arm hang to gravity. She has significant soft tissue swelling and ecchymosis. I explained that she may need to wait at least 1 week before swelling subsides before a surgical incision could be made. This is will be up to the operating surgeon. Orthopedics will follow this patient. Thank you for this consultation. [id number]/CPS #: [id number] TOMAS
[2019-11-16] MEDS: Magnesium Oxide TAB* 400 MG PO SCH ×2 (09:13→22:05)
[2019-11-16] MEDS: carBAMazepine TAB(*) 200 MG PO SCH ×4 (09:16→22:05)
[2019-11-16] MEDS: Thiamine TAB* 100 MG TAB PO SCH (09:17)
[2019-11-16 11:25] LABS: BUN/Creatinine Ratio 13.5 (8-20); Calcium 8.2 mg/dL (8.6-10.3); EGFR African American 148.7 (>60); EGFR Non-African American 122.9 (>60); Potassium 3.8 mmol/L (3.5-5.0)
[2019-11-16 15:06] LABS: BUN/Creatinine Ratio 13.2 (8-20); Calcium 8.3 mg/dL (8.6-10.3); EGFR African American 145.5 (>60); EGFR Non-African American 120.2 (>60); Potassium 3.6 mmol/L (3.5-5.0)
[2019-11-16] MEDS ORDERED: carBAMazepine TAB(*) 200 MG PO ONE (18:00)
[2019-11-16 18:40] LABS: BUN/Creatinine Ratio 11.3 (8-20); Calcium 8.4 mg/dL (8.6-10.3); EGFR African American 145.5 (>60); EGFR Non-African American 120.2 (>60); Potassium 3.7 mmol/L (3.5-5.0)
--- NOTE | 2019-11-16 19:29 | CONSULT ---
Consult Consult: Spoke to my colleague Dr. Akbar this morning. [place] that ICU staff favored gradual increase in NA to treat the hyponatremia and that the patient wouldn't be safe for surgery until Tuesday or Tuesday. CT scan done today. I just met the patient in ICU 7. O: - Massive swelling, ecchymosis L shoulder and upper arm - NVID - In a sling Selected Entries 11/16/19 11/16/19 11/16/19 17:00 18:00 19:16 Temperature 98.7 F Heart Rate 102 Respiratory 18 Rate Blood Pressure 149/79 (mmHg) O2 Sat by Pulse 95 Oximetry Laboratory Tests 11/16/19 11/16/19 05:14 18:01 WBC 3.5 Hct 22 L Plt Count 70 L S[address] scan: Surgical neck fracture left proximal humerus. 30 degrees anterior apex, 50 degrees varus, at least 3.5 cm displaced. Osteopenic. Some comminution. A: 1. L proximal humerus fracture, displaced 2. Hyponatremia, Anemic 3. Hx of L lobectomy for sx d/o 4. Alcoholism P: - Patient wants surgery, which would be ORIF with a lateral locking plate. She meets displacement criteria to be indicated for surgery, though especially with this particular fracture all criteria all relevant. - Patient denied frequent falls, though clearly is a fall risk given sz disorder and alcoholism, which can be an issue after ORIF surgery. 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 - I explained to the patient that this surgery is not urgent and can be done within 14 days of fracture - For now, I recommended that the patient rest and sleep with the head of the bed at 45 degrees and her arm in a sling. Occasionally, gravity and time can improve reduction. - I will continue to follow. I can do surgery when the patient is cleared as an inpatient or outpatient. For social and medical reasons, it might end up being better to perform with the patient an inpatient. Per report the patient might be cleared for surgery as soon as Tuesday or Tuesday.
[2019-11-16 23:48] LABS: BUN/Creatinine Ratio 11.1 (8-20); Calcium 8.5 mg/dL (8.6-10.3); EGFR African American 142.4 (>60); EGFR Non-African American 117.6 (>60); Potassium 3.6 mmol/L (3.5-5.0)
[2019-11-17] MEDS: LORazepam INJ* 2 MG/ML 1 ML VIAL IV PUSH SCH ×7 (01:33→15:14)
[2019-11-17] MEDS ORDERED: diPHENhydraMINE IV* 50 MG/ML 1 ml VIAL (BENADRYL) IV PRN (04:23)
[2019-11-17] MEDS ORDERED: LORazepam INJ* 2 MG/ML 1 ML VIAL IV PUSH ONE (04:36)
[2019-11-17] MEDS ORDERED: Lorazepam PYXIS KEY PRN (04:36)
[2019-11-17 05:10] LABS: Hematocrit 22 % (35-47); Hemoglobin 7.4 g/dL (12.0-16.0); Mean Corpuscular HGB Conc 34 g/dL (31-36); Mean Corpuscular Hemoglobin 33 pg (27-31); Mean Corpuscular Volume 97 fL (80-97); Platelet Count 67 10^3/uL (150-450); Red Blood Count 2.24 10^6 /uL (3.70-4.87); Red Cell Distribution Width 13 % (10-15); White Blood Count 3.5 10^3/uL (3.5-10.8)
[2019-11-17] MEDS: LORazepam INJ* 2 MG/ML 1 ML VIAL IV SCH ×2 (05:22→17:23)
[2019-11-17 05:24] LABS: BUN/Creatinine Ratio 9.6 (8-20); Calcium 8.7 mg/dL (8.6-10.3); EGFR African American 148.7 (>60); EGFR Non-African American 122.9 (>60); Potassium 3.2 mmol/L (3.5-5.0)
[2019-11-17] MEDS ORDERED: Lactated Ringers 1000 ML Bag* 1,000 ML IV ONE (06:04)
[2019-11-17] MEDS: KCL 20 MEQ/100 ML IVPREMIX* 20 MEQ/100 ML BAG IV SCH ×4 (06:52→17:10)
[2019-11-17] MEDS ORDERED: Dexmedetomidine* 1,000 MCG in NS 0.9% 250 ML* 240 ML IV SCH (07:30)
--- NOTE | 2019-11-17 08:26 | PN ---
Subjective Date of Service: 11/17/19 Interval History: Overnight, more agitated - getting ativan, and was started on precedex drip. Nurse reports that she is getting very agitated, and scoring high in the [place] protocol. Patient currently is sleeping, but when stimulated- she awakens, and is very agitated. Family History: Unchanged from Admission Social History: Unchanged from Admission Past Medical History: Unchanged from Admission Objective Active Medications: Carbamazepine (Tegretol Tab(*)) 200 mg PO QID CASSANDRA Last Admin: 11/16/19 22:05 Dose: 200 mg Diphenhydramine HCl (Benadryl Iv*) 25 mg IV Q6H PRN PRN Reason: AGITATION Last Admin: 11/17/19 04:46 Dose: 25 mg Lactated Ringer's (Lactated Ringers 1000 Ml Bag*) 1,000 mls @ 100 mls/hr IV ONCE ONE Stop: 11/17/19 16:03 Last Admin: 11/17/19 06:52 Dose: 100 mls/hr Potassium Chloride (Potassium Chloride 20 Meq/100 Ml Ivpremix*) 20 meq in 100 mls @ 50 mls/hr IV Q2H CASSANDRA Stop: 11/17/19 10:59 Last Admin: 11/17/19 06:52 Dose: 50 mls/hr Dexmedetomidine HCl 1,000 mcg/ (Sodium Chloride) 250 mls @ 0 mls/hr IV .( Initial rate) [facility]; Protocol Influenza Virus Vaccine (Fluarix Quad [id number] Syr) 0.5 ml IM .ONCE ONE Stop: 11/17/19 09:01 Lorazepam (Ativan Inj*) 0 - 3 mg IV PUSH .PER [facility] PROTOCOL [facility]AN[facility]; Protocol Last Admin: 11/17/19 07:43 Dose: 2.5 mg Lorazepam (Ativan Inj*) 1 mg IV Q12H CASSANDRA; Taper Stop: 11/18/19 20:59 Last Admin: 11/17/19 05:22 Dose: 1 mg Magnesium Oxide (Magox 400 Tab*) 400 mg PO BID CASSANDRA Last Admin: 11/16/19 22:05 Dose: 400 mg Miscellaneous (Ativan Pyxis Oden) 1 ea N/A .PYXIS ODEN PRN PRN Reason: PER PROTOCOL Morphine Sulfate (Morphine Inj (Syringe))*) 2 mg IV Q4H PRN PRN Reason: PAIN - SEVERE Last Admin: 11/16/19 23:21 Dose: 2 mg Multivitamins/Minerals (Theragran/Minerals Tab*) 1 tab PO DAILY [facility] Last Admin: 11/16/19 09:15 Dose: 1 tab Ondansetron HCl (Zofran Inj*) 4 mg IV Q4H PRN PRN Reason: NAUSEA Last Admin: 11/16/19 11:00 Dose: 4 mg Thiamine HCl (Vitamin B-1 Tab*) 100 mg PO DAILY [facility] Last Admin: 11/16/19 09:17 Dose: 100 mg Vital Signs - 8 hr 11/17/19 11/17/19 11/17/19 01:00 01:33 02:00 Temperature Pulse Rate 111 132 Respiratory 16 19 20 Rate Blood Pressure 160/83 (mmHg) O2 Sat by Pulse 97 94 Oximetry 11/17/19 11/17/19 11/17/19 02:01 02:23 03:00 Temperature Pulse Rate 119 109 128 Respiratory 20 20 19 Rate Blood Pressure 155/141 177/86 (mmHg) O2 Sat by Pulse 90 94 95 Oximetry 11/17/19 11/17/19 11/17/19 03:06 03:15 03:58 Temperature 99.8 F Pulse Rate 111 Respiratory 24 20 Rate Blood Pressure 170/98 (mmHg) O2 Sat by Pulse 88 Oximetry 11/17/19 11/17/19 11/17/19 04:00 04:01 04:46 Temperature Pulse Rate 111 101 Respiratory 18 18 17 Rate Blood Pressure 139/100 (mmHg) O2 Sat by Pulse 91 94 Oximetry 11/17/19 11/17/19 11/17/19 04:51 05:00 05:16 Temperature Pulse Rate 101 137 Respiratory 19 25 19 Rate Blood Pressure 169/84 169/84 (mmHg) O2 Sat by Pulse 97 96 Oximetry 11/17/19 11/17/19 11/17/19 05:22 06:00 07:30 Temperature Pulse Rate 116 Respiratory 16 18 22 Rate Blood Pressure (mmHg) O2 Sat by Pulse 98 Oximetry 11/17/19 11/17/19 11/17/19 07:43 07:56 08:00 Temperature 99.5 F Pulse Rate Respiratory 19 20 Rate Blood Pressure (mmHg) O2 Sat by Pulse Oximetry Oxygen Devices in Use Now: Nasal Cannula Appearance: She is lying in bed, not in distress, when awoke, is very agitated. Respiratory: Symmetrical Chest Expansion and Respiratory Effort, Clear to Auscultation Cardiovascular: NL Sounds; No Murmurs; No JVD, RRR, No Edema Abdominal: NL Sounds; No Tenderness; No Distention, No Hepatosplenomegaly Extremities: No Edema, - - LUE: in a sling, radial pulse 2+ bilaterally. Skin: - - bruising noted at the chest and LUE. Result Diagrams: 11/17/19 04:00 11/17/19 04:00 Additional Lab and Data: Lab Results 11/15/19 11/15/19 11/15/19 Range/Units 19:51 19:51 19:51 WBC 6.2 (3.5-10.8) 10^3/uL RBC 3.05 L (3.70-4.87) 10^6 /uL Hgb 9.8 L (12.0-16.0) g/dL Hct 28 L (35-47) % MCV 92 (80-97) fL MCH 32 H (27-31) pg MCHC 35 (31-36) g/dL RDW 13 (10-15) % Plt Count 116 L (150-450) 10^3/uL MPV 7.0 L (7.4-10.4) fL Neut % (Auto) 86.9 % Lymph % (Auto) 2.7 % [place] % (Auto) 10.2 % Eos % (Auto) 0.0 % Baso % (Auto) 0.2 % Absolute Neuts (auto) 5.3 (1.5-7.7) 10^3/ul Absolute Lymphs (auto) 0.2 L (1.0-4.8) 10^3/ul Absolute Monos (auto) 0.6 (0-0.8) 10^3/ul Absolute Eos (auto) 0.0 (0-0.6) 10^3/ul Absolute Basos (auto) 0.0 (0-0.2) 10^3/ul Absolute Nucleated RBC 0.0 10^3/ul Nucleated RBC % 0.0 Sodium 119 L* (135-145) mmol/L Potassium 3.4 L (3.5-5.0) mmol/L Chloride 83 L (101-111) mmol/L Carbon Dioxide 25 (22-32) mmol/L Anion Gap 11 (2-11) mmol/L BUN 9 (6-24) mg/dL Creatinine 0.72 (0.51-0.95) mg/dL Est GFR ( Amer) 102.1 (>60) Est GFR (Non-Af Amer) 84.4 (>60) BUN/Creatinine Ratio 12.5 (8-20) Glucose 126 H (70-100) mg/dL Lactic Acid 1.7 (0.5-2.0) mmol/L Calcium 9.0 (8.6-10.3) mg/dL Magnesium 1.8 L (1.9-2.7) mg/dL Total Bilirubin 1.40 H (0.2-1.0) mg/dL AST 59 H (13-39) U/L ALT 28 (7-52) U/L Alkaline Phosphatase 201 H (34-104) U/L Total Creatine Kinase 557 H (10-223) U/L Total Protein 6.7 (6.4-8.9) g/dL Albumin 4.3 (3.2-5.2) g/dL Globulin 2.4 (2-4) g/dL Albumin/Globulin Ratio 1.8 (1-3) Serum Alcohol < 10 (<10) mg/dL Microbiology and Other Data: Microbiology 11/16/19 01:17 Nasal Screen MRSA (PCR) - Final Nasal Mrsa Not Detected Assess/Plan/Problems-Billing Assessment: - Patient Problems (1) Alcohol withdrawal delirium Current Visit: No Status: Acute Code(s): F10.231 - ALCOHOL DEPENDENCE WITH WITHDRAWAL DELIRIUM SNOMED Code(s): 9750231 Comment: now on precedex drip ativan as needed continue to monitor in the ICU. (2) Left humeral fracture Current Visit: Yes Status: Acute Code(s): S42.302A - UNSP FRACTURE OF SHAFT OF HUMERUS, LEFT ARM, INIT SNOMED Code(s): 71551432 Comment: pain control currently going through alcohol withdrawal, holding off surgery until she improves (3) Alcohol abuse Current Visit: No Status: Acute Code(s): F10.10 - ALCOHOL ABUSE, UNCOMPLICATED SNOMED Code(s): 71044872 Comment: on [facility] protocol getting thiamine (4) Hyponatremia Current Visit: No Status: Acute Code(s): E87.1 - HYPO-OSMOLALITY AND HYPONATREMIA SNOMED Code(s): 17258546 Comment: Improved, ? SIADH with beer potomania now on lactated ringers, slowly trying to bring Na closer to normal range. (5) Seizure disorder Current Visit: No Status: Acute Code(s): G40.909 - EPILEPSY, UNSP, NOT INTRACTABLE, WITHOUT STATUS EPILEPTICUS SNOMED Code(s): 154153470 Comment: continue home regimen tegretol (6) Acute on chronic anemia Current Visit: Yes Status: Acute Code(s): D64.9 - ANEMIA, UNSPECIFIED SNOMED Code(s): 008886683 Comment: Hb on admission around 9, this AM around 7, likley dilutional, prior work up revealed WNL B12 and folate levels, and also had iron studies which did not reveal iron def. chronic anemia could be due to Bone marrow affects of halfway alcohol use will get stool occult (7) Thrombocytopenia Current Visit: Yes Status: Acute Code(s): D69.6 - THROMBOCYTOPENIA, UNSPECIFIED SNOMED Code(s): 915952543 Comment: dilutional and due to BM suppression due to chronic ETOH use. avoid antiplatlet agents no evidence of acute bleeding (8) DVT prophylaxis Current Visit: Yes Status: Acute Code(s): Z29.9 - ENCOUNTER FOR PROPHYLACTIC MEASURES, UNSPECIFIED SNOMED Code(s): 357797375 Comment: SCD (9) Hypokalemia Current Visit: Yes Status: Acute Code(s): E87.6 - HYPOKALEMIA SNOMED Code( s): 34768257 Comment: repletion ordered by night team Status and Disposition: ICU status.
[2019-11-17] MEDS: carBAMazepine TAB(*) 200 MG PO SCH ×4 (09:00→20:09)
[2019-11-17] MEDS ORDERED: Influenza VAC *QUAD* 2019-20* 0.5 ML SYRINGE IM ONE (09:00)
[2019-11-17] MEDS: Multivitamins/Minerals TAB PO SCH (09:01)
[2019-11-17] MEDS: Thiamine TAB* 100 MG TAB PO SCH (09:01)
[2019-11-17] MEDS: Magnesium Oxide TAB* 400 MG PO SCH ×2 (09:01→20:09)
[2019-11-17] MEDS: Dexmedetomidine* 1,000 MCG in NS 0.9% 250 ML* 240 ML IV SCH (09:49)
--- NOTE | 2019-11-17 12:48 | PN ---
Progress Note - Progress Note Date of Service: 11/17/19 SOAP: Subjective: Pt is confused and disoriented due to withdrawal Objective: PE- 54 y/o WDWN F NAD, mildy agitated LUE- edema and eccymosis of the left upper arm, skin intact with no evidence of open wounds, +2 radial pulse Vital Signs Temp Pulse Resp BP Pulse Ox 99.5 F 120 24 155/93 98 11/17/19 07:56 11/17/19 11:00 11/17/19 11:20 11/17/19 11:00 11/17/19 11:00 Laboratory Results - last 24 hr 11/16/19 11/16/19 11/16/19 05:14 14:30 18:01 WBC RBC Hgb Hct MCV MCH MCHC RDW Plt Count MPV Hem Pathologist Commnt Sodium 126 L 126 L Potassium 3.6 3.7 Chloride 96 L 96 L Carbon Dioxide 24 24 Anion Gap 6 6 BUN 7 6 Creatinine 0.53 0.53 Est GFR ( Amer) 145.5 145.5 Est GFR (Non-Af Amer) 120.2 120.2 BUN/Creatinine Ratio 13.2 11.3 Glucose 107 H 99 Calcium 8.3 L 8.4 L 11/16/19 11/17/19 11/17/19 23:24 04:00 04:00 WBC 3.5 RBC 2.24 L Hgb 7.4 L Hct 22 L MCV 97 MCH 33 H MCHC 34 RDW 13 Plt Count 67 L MPV 8.0 Hem Pathologist Commnt Sodium 125 L 125 L Potassium 3.6 3.2 L Chloride 93 L 92 L Carbon Dioxide 25 26 Anion Gap 7 7 BUN 6 5 L Creatinine 0.54 0.52 Est GFR ( Amer) 142.4 148.7 Est GFR (Non-Af Amer) 117.6 122.9 BUN/Creatinine Ratio 11.1 9.6 Glucose 107 H 107 H Calcium 8.5 L 8.7 Assessment: 1. L proximal humerus fracture, displaced 2. Hyponatremia, Anemic 3. Hx of L lobectomy for sx d/o 4. Alcoholism Plan: The patient is not medically stable for surgery at this point NWB LUE Remain in sling at all times Possible ORIF left proximal humerus with Dr. Green in future when patient becomes medically stable Ortho will cont to follow
[2019-11-17 13:40] LABS: EGFR African American 155.6 (>60); EGFR Non-African American 128.6 (>60); Magnesium 1.7 mg/dL (1.9-2.7); Potassium 3.3 mmol/L (3.5-5.0)
[2019-11-17] MEDS ORDERED: Magnesium Sulfate 2 GM IV* 2 GM/50 ML BAG IVPB ONE (13:48)
[2019-11-17] MEDS ORDERED: NS 0.9% 1000 ML** 1,000 ML IV SCH (14:00)
[2019-11-17] MEDS: NS 0.9% 1000 ML** 1,000 ML IV SCH (14:46)
[2019-11-17] MEDS: hydrALAZINE IV* 20 MG/ML VIAL IV SLOW PU PRN (16:07)
[2019-11-17] MEDS: Morphine INJ* 2 MG/ML 1 ML SYRINGE (TWO MG - NEW SYRINGE VERSION) IV PRN (16:09)
[2019-11-17] MEDS ORDERED: Piperacillin/Tazobac ADVAN(*) 3.375 GM in NS 0.9% 100 ML* 100 ML IVPB ONE (23:38)
--- NOTE | 2019-11-17 23:44 | PN ---
Progress Note - Progress Note Date of Service: 11/17/19 Note: Cross Cover: Called for fever. Proximal humerus fracture in a patient now withdrawing from EtOH, hyponatremia, pseudomonas in urine No e/o skin breakdown Will start zosyn for known pseudomonas pending sensitivities. Add better MSSA and/or MRSA coverage if change in status tonight Check 2 sets blood cultures Tylenol for fever
[2019-11-17] MEDS ORDERED: Zosyn per Pharmacy* NOTE FOLLOW UP SCH (23:45)
[2019-11-18] MEDS: Acetaminophen TAB* 325 MG PO PRN ×3 (00:17→20:07)
[2019-11-18] MEDS: NS 0.9% 1000 ML** 1,000 ML IV SCH ×2 (03:17→14:26)
[2019-11-18] MEDS: ZOSYN 3.375 GM Q8H per EXTENDED INFUSION IVPB SCH ×6 (04:38→20:04)
[2019-11-18] MEDS: LORazepam INJ* 2 MG/ML 1 ML VIAL IV SCH ×2 (04:46→16:40)
[2019-11-18] MEDS: Morphine INJ* 2 MG/ML 1 ML SYRINGE (TWO MG - NEW SYRINGE VERSION) IV PRN ×2 (04:46→18:20)
[2019-11-18] MEDS: Dexmedetomidine* 1,000 MCG in NS 0.9% 250 ML* 240 ML IV SCH ×2 (05:16→18:00)
[2019-11-18 06:34] LABS: ABS Lymphocytes 0.2 10^3/ul (1.0-4.8); ABS Monocytes 0.4 10^3/ul (0-0.8); ABS Neutrophils 2.2 10^3/ul (1.5-7.7); Eosinophil % 0.3 %; Hematocrit 20 % (35-47); Hemoglobin 7.1 g/dL (12.0-16.0); Lymphocyte % 6.8 %; Mean Corpuscular HGB Conc 35 g/dL (31-36); Mean Corpuscular Hemoglobin 33 pg (27-31); Mean Corpuscular Volume 94 fL (80-97); Mean Platelet Volume 7.6 fL (7.4-10.4); Nucleated Red Blood Cells % 0.1; Platelet Count 82 10^3/uL (150-450); Red Blood Count 2.14 10^6 /uL (3.70-4.87); Red Cell Distribution Width 13 % (10-15); White Blood Count 2.8 10^3/uL (3.5-10.8)
[2019-11-18 06:35] LABS: BUN/Creatinine Ratio 15.9 (8-20); Calcium 8.6 mg/dL (8.6-10.3); EGFR African American 107.3 (>60); EGFR Non-African American 88.7 (>60); Magnesium 2.2 mg/dL (1.9-2.7); Phosphorus 3.7 mg/dL (2.5-5.0); Potassium 3.2 mmol/L (3.5-5.0)
[2019-11-18] MEDS: Thiamine TAB* 100 MG TAB PO SCH (09:29)
[2019-11-18] MEDS: Magnesium Oxide TAB* 400 MG PO SCH ×2 (09:29→20:04)
[2019-11-18] MEDS: carBAMazepine TAB(*) 200 MG PO SCH ×4 (09:29→20:04)
[2019-11-18] MEDS: Multivitamins/Minerals TAB PO SCH (09:29)
[2019-11-18] MEDS: KCL 10 MEQ/50 ML IVPREMIX* 10 MEQ/50 ML BAG IV SCH ×2 (09:43→12:20)
--- NOTE | 2019-11-18 10:34 | PN ---
Progress Note - Progress Note Date of Service: 11/18/19 SOAP: Subjective: Pt is doing well. More alert this am. Pain is controlled. Denies F/C, CP/SOB or N/T Objective: PE- 54 y/o WDWN F NAD, alert, resting comfortably in sling LUE- skin intact with no open wounds, edema and ecchymosis of the upper extremity, +2 radial and ulnar pulse, SILT distally, brisk cap refill Vital Signs Temp Pulse Resp BP Pulse Ox 99.4 F 96 18 169/81 98 11/18/19 07:46 11/18/19 09:00 11/18/19 09:00 11/18/19 09:00 11/18/19 09:00 Laboratory Results - last 24 hr 11/17/19 11/18/19 11/18/19 13:15 06:09 06:09 WBC 2.8 L RBC 2.14 L Hgb 7.1 L Hct 20 L MCV 94 MCH 33 H MCHC 35 RDW 13 Plt Count 82 L MPV 7.6 Neut % (Auto) 79.8 Lymph % (Auto) 6.8 [place] % (Auto) 12.6 Eos % (Auto) 0.3 Baso % (Auto) 0.5 Absolute Neuts (auto) 2.2 Absolute Lymphs (auto) 0.2 L Absolute Monos (auto) 0.4 Absolute Eos (auto) 0.0 Absolute Basos (auto) 0.0 Absolute Nucleated RBC 0.0 Nucleated RBC % 0.1 Sodium 126 L 129 L Potassium 3.3 L 3.2 L Chloride 91 L 96 L Carbon Dioxide 27 25 Anion Gap 8 8 BUN 5 L 11 Creatinine 0.50 L 0.69 Est GFR ( Amer) 155.6 107.3 Est GFR (Non-Af Amer) 128.6 88.7 BUN/Creatinine Ratio 10.0 15.9 Glucose 103 H 87 Calcium 9.0 8.6 Phosphorus 3.7 Magnesium 1.7 L 2.2 Assessment: 1. L proximal humerus fracture, displaced 2. Hyponatremia, Anemic 3. Hx of L lobectomy for sx d/o 4. Alcoholism Plan: The patient is not medically stable for surgery at this point NWB LUE Remain in sling at all times with elevation of the head of the bed if possible Possible ORIF left proximal humerus with Dr. Green in future when patient becomes medically stable Ortho will cont to follow
--- NOTE | 2019-11-18 13:41 | PN ---
Subjective Date of Service: 11/18/19 Interval History: On precedex drip.less agitated.able to answer questions appropriately and oriented.denies sob Family History: Unchanged from Admission Social History: Unchanged from Admission Past Medical History: Unchanged from Admission Objective Active Medications: Acetaminophen (Tylenol Tab*) 650 mg PO Q6H PRN PRN Reason: PAIN-MILD/TEMP >/= 100.4 Last Admin: 11/18/19 12:20 Dose: 650 mg Carbamazepine (Tegretol Tab(*)) 200 mg PO QID [facility] Last Admin: 11/18/19 12:20 Dose: 200 mg Diphenhydramine HCl (Benadryl Iv*) 25 mg IV Q6H PRN PRN Reason: AGITATION Last Admin: 11/17/19 04:46 Dose: 25 mg Hydralazine HCl (Apresoline Iv*) 5 mg IV SLOW PU Q6H PRN PRN Reason: Systolic Bp Greater Than: 170 Last Admin: 11/17/19 16:07 Dose: 5 mg Dexmedetomidine HCl 1,000 mcg/ (Sodium Chloride) 250 mls @ 3.48 mls/hr IV Q24H [facility]; Protocol Last Admin: 11/18/19 05:16 Dose: 13.8 mls/hr Sodium Chloride (Ns 0.9% 1000 Ml) 1,000 mls @ 100 mls/hr IV PER RATE [facility] Last Admin: 11/18/19 03:17 Dose: 100 mls/hr Piperacillin Sod/Tazobactam (Sod 3.375 gm/ Sodium Chloride) 100 mls @ 25 mls/ hr IVPB Q8H [facility] Last Admin: 11/18/19 12:20 Dose: 25 mls/hr Lorazepam (Ativan Inj*) 0 - 3 mg IV PUSH .PER [place] PROTOCOL [facility]; Protocol Last Admin: 11/17/19 15:14 Dose: 1.5 mg Lorazepam (Ativan Inj*) 0.5 mg IV Q12H [facility]; Taper Stop: 11/18/19 20:59 Last Admin: 11/18/19 04:46 Dose: 0.5 mg Magnesium Oxide (Magox 400 Tab*) 400 mg PO BID [facility] Last Admin: 11/18/19 09:29 Dose: 400 mg Miscellaneous (Ativan Pyxis Oden) 1 ea N/A .PYXIS ODEN PRN PRN Reason: PER PROTOCOL Morphine Sulfate (Morphine Inj (Syringe))*) 2 mg IV Q4H PRN PRN Reason: PAIN - SEVERE Last Admin: 11/18/19 04:46 Dose: 2 mg Multivitamins/Minerals (Theragran/Minerals Tab*) 1 tab PO DAILY [facility] Last Admin: 11/18/19 09:29 Dose: 1 tab Ondansetron HCl (Zofran Inj*) 4 mg IV Q4H PRN PRN Reason: NAUSEA Last Admin: 11/16/19 11:00 Dose: 4 mg Pharmacy Consult (Zosyn Per Pharmacy*) 1 note FOLLOW UP .ZOSYN PER PHARMACY [facility] Thiamine HCl (Vitamin B-1 Tab*) 100 mg PO DAILY [facility] Last Admin: 11/18/19 09:29 Dose: 100 mg Vital Signs - 8 hr 11/18/19 11/18/19 11/18/19 06:00 07:00 07:01 Temperature Pulse Rate 79 92 89 Respiratory 15 16 18 Rate Blood Pressure 134/72 159/78 (mmHg) O2 Sat by Pulse 100 100 100 Oximetry 11/18/19 11/18/19 11/18/19 07:46 08:00 08:18 Temperature 99.4 F Pulse Rate 94 Respiratory 18 17 Rate Blood Pressure 157/79 (mmHg) O2 Sat by Pulse 99 Oximetry 11/18/19 11/18/19 11/18/19 09:00 10:00 11:00 Temperature Pulse Rate 96 111 109 Respiratory 18 17 19 Rate Blood Pressure 169/81 170/89 164/81 (mmHg) O2 Sat by Pulse 98 98 99 Oximetry 11/18/19 11/18/19 11/18/19 11:04 12:00 13:00 Temperature 100.5 F Pulse Rate 112 101 Respiratory 17 20 17 Rate Blood Pressure 157/71 153/76 (mmHg) O2 Sat by Pulse 99 98 Oximetry Oxygen Devices in Use Now: Nasal Cannula Eyes: No Scleral Icterus Neck: NL Appearance and Movements; NL JVP Respiratory: Symmetrical Chest Expansion and Respiratory Effort, Clear to Auscultation Cardiovascular: NL Sounds; No Murmurs; No JVD Abdominal: NL Sounds; No Tenderness; No Distention Extremities: - - multiple bruises,sling Result Diagrams: 11/18/19 06:09 11/18/19 06:09 Additional Lab and Data: Lab Results 11/15/19 11/15/19 11/15/19 Range/Units 19:51 19:51 19:51 WBC 6.2 (3.5-10.8) 10^3/uL RBC 3.05 L (3.70-4.87) 10^6 /uL Hgb 9.8 L (12.0-16.0) g/dL Hct 28 L (35-47) % MCV 92 (80-97) fL MCH 32 H (27-31) pg MCHC 35 (31-36) g/dL RDW 13 (10-15) % Plt Count 116 L (150-450) 10^3/uL MPV 7.0 L (7.4-10.4) fL Neut % (Auto) 86.9 % Lymph % (Auto) 2.7 % [place] % (Auto) 10.2 % Eos % (Auto) 0.0 % Baso % (Auto) 0.2 % Absolute Neuts (auto) 5.3 (1.5-7.7) 10^3/ul Absolute Lymphs (auto) 0.2 L (1.0-4.8) 10^3/ul Absolute Monos (auto) 0.6 (0-0.8) 10^3/ul Absolute Eos (auto) 0.0 (0-0.6) 10^3/ul Absolute Basos (auto) 0.0 (0-0.2) 10^3/ul Absolute Nucleated RBC 0.0 10^3/ul Nucleated RBC % 0.0 Sodium 119 L* (135-145) mmol/L Potassium 3.4 L (3.5-5.0) mmol/L Chloride 83 L (101-111) mmol/L Carbon Dioxide 25 (22-32) mmol/L Anion Gap 11 (2-11) mmol/L BUN 9 (6-24) mg/dL Creatinine 0.72 (0.51-0.95) mg/dL Est GFR ( Amer) 102.1 (>60) Est GFR (Non-Af Amer) 84.4 (>60) BUN/Creatinine Ratio 12.5 (8-20) Glucose 126 H (70-100) mg/dL Lactic Acid 1.7 (0.5-2.0) mmol/L Calcium 9.0 (8.6-10.3) mg/dL Magnesium 1.8 L (1.9-2.7) mg/dL Total Bilirubin 1.40 H (0.2-1.0) mg/dL AST 59 H (13-39) U/L ALT 28 (7-52) U/L Alkaline Phosphatase 201 H (34-104) U/L Total Creatine Kinase 557 H (10-223) U/L Total Protein 6.7 (6.4-8.9) g/dL Albumin 4.3 (3.2-5.2) g/dL Globulin 2.4 (2-4) g/dL Albumin/Globulin Ratio 1.8 (1-3) Serum Alcohol < 10 (<10) mg/dL Microbiology and Other Data: Microbiology 11/16/19 01:17 Nasal Screen MRSA (PCR) - Final Nasal Mrsa Not Detected Assess/Plan/Problems-Billing Assessment: - Patient Problems (1) Left humeral fracture Current Visit: Yes Status: Acute Code(s): S42.302A - UNSP FRACTURE OF SHAFT OF HUMERUS, LEFT ARM, INIT SNOMED Code(s): 68377524 Comment: pain control currently going through alcohol withdrawal and uti with fever, holding off surgery until she improves likely be to medically stable in 24-48h will try to wean precedex on antibiotics for uti (2) UTI (urinary tract infection) Current Visit: Yes Status: Acute Comment: klebsiella sensitive to zosyn will repeat cxr in am to r/o developing pcn high fever overnight and improving on zosyn min o2 requirement if cxr ok and cx finalzed, will switch to ceftriaxone in am which should be sensitive to as zosyn can cause thrombocytopenia however platelets were down even before zosyn and improving now and pt also has h/o pseudomonas uti (3) Alcohol withdrawal delirium Current Visit: No Status: Acute Code(s): F10.231 - ALCOHOL DEPENDENCE WITH WITHDRAWAL DELIRIUM SNOMED Code(s): 8193168 Comment: now on precedex drip ativan as needed continue to monitor in the ICU. gradually wean precedex today (4) Acute on chronic anemia Current Visit: Yes Status: Acute Code(s): D64.9 - ANEMIA, UNSPECIFIED SNOMED Code(s): 054949462 Comment: Hb on admission around 9, this AM around 7, jessy baker, prior work up revealed WNL B12 and folate levels, and also had iron studies which did not reveal iron def. chronic anemia and pancytopenia from marrow suppression in the setting of penitentiary alcohol use will get stool occult will repeat b12,folate levels and replete with thiamine folate mvt (5) DVT prophylaxis Current Visit: Yes Status: Acute Code(s): Z29.9 - ENCOUNTER FOR PROPHYLACTIC MEASURES, UNSPECIFIED SNOMED Code(s): 904797235 Comment: SCD (6) Hypokalemia Current Visit: Yes Status: Acute Code(s): E87.6 - HYPOKALEMIA SNOMED Code( s): 40660144 Comment: 2 runs kcl mg replaced (7) Thrombocytopenia Current Visit: Yes Status: Acute Code(s): D69.6 - THROMBOCYTOPENIA, UNSPECIFIED SNOMED Code(s): 890446239 Comment: dilutional and due to BM suppression due to chronic ETOH use. avoid antiplatlet agents no evidence of acute bleeding (8) Hyponatremia Current Visit: Yes Status: Acute Code(s): E87.1 - HYPO-OSMOLALITY AND HYPONATREMIA SNOMED Code(s): 75377258 Comment: sec to beer potomania sig beer drinker stable Status and Disposition: ICU status.
[2019-11-18] MEDS: Folic Acid TAB* 1 MG PO SCH (15:00)
[2019-11-18 17:42] LABS: Folate > 20.00 ng/mL (>3.99)
[2019-11-18] MEDS: hydrALAZINE IV* 20 MG/ML VIAL IV SLOW PU PRN (20:14)
--- NOTE | 2019-11-19 00:15 | PN ---
Progress Note - Progress Note Date of Service: 11/19/19 Note: Cross cover note: Febrile, HTN and tachycardic Zosyn started last night. Blood cultures drawn at that time have not yet resulted. CXR wnl except pleural effusions. Pseudomonas in urine. Adding vancomycin for continued fever until blood cultures return Continue NS at 100cc/hr Add amlodipine 5mg now and continue tomorrow for HTN. Has received several doses of hydralazine PRN, she is not on any anti hypertensive at home per med rec.
[2019-11-19] MEDS: NS 0.9% 1000 ML** 1,000 ML IV SCH ×2 (00:33→11:12)
[2019-11-19] MEDS: amLODIPine TAB* 5 MG PO SCH ×2 (00:33→08:23)
[2019-11-19] MEDS ORDERED: Vancomycin(*) 1,250 MG in NS 0.9% 250 ML* 250 ML IVPB ONE (00:45)
[2019-11-19] MEDS ORDERED: Vancomycin per Pharmacy* NOTE FOLLOW UP SCH (01:00)
[2019-11-19] MEDS: hydrALAZINE IV* 20 MG/ML VIAL IV SLOW PU PRN ×2 (01:59→08:12)
[2019-11-19] MEDS: Morphine INJ* 2 MG/ML 1 ML SYRINGE (TWO MG - NEW SYRINGE VERSION) IV PRN ×2 (02:03→17:14)
[2019-11-19] MEDS: ZOSYN 3.375 GM Q8H per EXTENDED INFUSION IVPB SCH ×4 (03:51→11:50)
[2019-11-19] MEDS: Acetaminophen TAB* 325 MG PO PRN (04:25)
[2019-11-19 04:27] LABS: ABS Lymphocytes 0.2 10^3/ul (1.0-4.8); ABS Monocytes 0.6 10^3/ul (0-0.8); ABS Neutrophils 2.3 10^3/ul (1.5-7.7); Eosinophil % 1.2 %; Hematocrit 21 % (35-47); Hemoglobin 7.4 g/dL (12.0-16.0); Lymphocyte % 6.1 %; Mean Corpuscular HGB Conc 35 g/dL (31-36); Mean Corpuscular Hemoglobin 33 pg (27-31); Mean Corpuscular Volume 94 fL (80-97); Mean Platelet Volume 6.8 fL (7.4-10.4); Platelet Count 118 10^3/uL (150-450); Red Blood Count 2.26 10^6 /uL (3.70-4.87); Red Cell Distribution Width 13 % (10-15); White Blood Count 3.1 10^3/uL (3.5-10.8)
[2019-11-19 04:50] LABS: Albumin 3.8 g/dL (3.2-5.2); Albumin/Globulin Ratio 1.5 (1-3); BUN/Creatinine Ratio 12.5 (8-20); Calcium 8.6 mg/dL (8.6-10.3); EGFR African American 136.5 (>60); EGFR Non-African American 112.8 (>60); Globulin 2.6 g/dL (2-4); Potassium 2.8 mmol/L (3.5-5.0); Total Bilirubin 0.9 mg/dL (0.2-1.0); Total Protein 6.4 g/dL (6.4-8.9)
[2019-11-19] MEDS: Potassium Chlor TAB* 20 MEQ TAB.ER PO SCH ×3 (05:28→21:30)
[2019-11-19] MEDS: Multivitamins/Minerals TAB PO SCH (08:22)
[2019-11-19] MEDS: Magnesium Oxide TAB* 400 MG PO SCH (08:22)
[2019-11-19] MEDS: Folic Acid TAB* 1 MG PO SCH (08:22)
[2019-11-19] MEDS: Thiamine TAB* 100 MG TAB PO SCH (08:22)
[2019-11-19] MEDS: carBAMazepine TAB(*) 200 MG PO SCH ×4 (08:23→21:31)
[2019-11-19] MEDS: Dexmedetomidine* 1,000 MCG in NS 0.9% 250 ML* 240 ML IV SCH (08:58)
[2019-11-19] MEDS ORDERED: Potassium Chlor TAB* 20 MEQ TAB.ER PO SCH (10:00)
[2019-11-19] MEDS ORDERED: KCL 10 MEQ/50 ML IVPREMIX* 10 MEQ/50 ML BAG IV SCH (10:00)
--- NOTE | 2019-11-19 12:33 | PN ---
Progress Note - Progress Note Date of Service: 11/19/19 SOAP: Subjective: [Pt is doing well. She is alert this am and interactive. Pain is controlled. Denies Chills, CP/SOB or N/T. She did have a fever overnight. Zosyn started last night. Blood cultures drawn last night. vancomycin was added for continued fever until blood cultures return Objective: PE- 54 y/o WDWN F NAD, alert, resting comfortably in sling LUE- skin intact with no open wounds, edema and ecchymosis of the upper extremity, +2 radial and ulnar pulse, SILT distally, brisk cap refill Vital Signs Temp 99.0 F 11/19/19 11:50 Pulse 107 11/19/19 12:00 Resp 17 11/19/19 12:00 BP 158/82 11/19/19 12:00 Pulse Ox 92 11/19/19 12:00 Intake & Output 11/18/19 11/19/19 11/19/19 18:59 06:59 18:59 Intake Total 2201 2585 780 Output Total 1545 2885 1445 Balance 656 -300 -665 Weight 149 lb 7.574 oz Intake: IV Fluids 713 1427 NS (0.9%) 713 1427 IVPB 1185 488 ABX - VANCOMYCIN 299 ABX - ZOSYN 291 189 NS (0.9%) 774 Potassium chloride 120 Medicated IV 193 precedex 193 Oral 110 670 780 Output: Law 1545 2885 1445 Assessment: 1. L proximal humerus fracture, displaced 2. Hyponatremia, Anemic 3. Hx of L lobectomy for sx d/o 4. Alcoholism Plan: The patient is not medically stable for surgery at this point NWB LUE Remain in sling at all times with elevation of the head of the bed if possible Possible ORIF left proximal humerus with Dr. Green in future when patient becomes medically stable Zosyn started last night. Blood cultures drawn last night. vancomycin was added for continued fever until blood cultures return Ortho will cont to follow
[2019-11-19] MEDS: Vancomycin(*) 1,250 MG in NS 0.9% 250 ML* 250 ML IVPB SCH (13:34)
--- NOTE | 2019-11-19 17:24 | PN ---
Subjective Date of Service: 11/19/19 Interval History: Off precedex drip. not requiring much ativan. fever 102 overnight, added vanco to raul Family History: Unchanged from Admission Social History: Unchanged from Admission Past Medical History: Unchanged from Admission Objective Active Medications: Acetaminophen (Tylenol Tab*) 650 mg PO Q6H PRN PRN Reason: PAIN-MILD/TEMP >/= 100.4 Last Admin: 11/19/19 04:25 Dose: 650 mg Amlodipine Besylate (Norvasc Tab*) 5 mg PO DAILY [facility] Last Admin: 11/19/19 08:23 Dose: 5 mg Carbamazepine (Tegretol Tab(*)) 200 mg PO QID [facility] Last Admin: 11/19/19 17:14 Dose: 200 mg Clonidine HCl (Catapres Tab*) 0.1 mg PO BID [facility] Diphenhydramine HCl (Benadryl Iv*) 25 mg IV Q6H PRN PRN Reason: AGITATION Last Admin: 11/17/19 04:46 Dose: 25 mg Folic Acid (Folvite Tab*) 1 mg PO DAILY [facility] Last Admin: 11/19/19 08:22 Dose: 1 mg Hydralazine HCl (Apresoline Iv*) 5 mg IV SLOW PU Q6H PRN PRN Reason: Systolic Bp Greater Than: 170 Last Admin: 11/19/19 08:12 Dose: 5 mg Dexmedetomidine HCl 1,000 mcg/ (Sodium Chloride) 250 mls @ 3.48 mls/hr IV Q24H [facility]; Protocol Last Admin: 11/19/19 08:58 Dose: Not Given Piperacillin Sod/Tazobactam (Sod 3.375 gm/ Sodium Chloride) 100 mls @ 25 mls/ hr IVPB Q8H [facility] Last Admin: 11/19/19 11:50 Dose: 25 mls/hr Vancomycin HCl 1,250 mg/ (Sodium Chloride) 250 mls @ 166.667 mls/hr IVPB Q12H [facility] Last Admin: 11/19/19 13:34 Dose: 166.667 mls/hr Lorazepam (Ativan Inj*) 0 - 3 mg IV PUSH .PER [place] PROTOCOL [facility]; Protocol Last Admin: 11/17/19 15:14 Dose: 1.5 mg Magnesium Oxide (Magox 400 Tab*) 400 mg PO BID [facility] Last Admin: 11/19/19 08:22 Dose: 400 mg Miscellaneous (Ativan Pyxis Oden) 1 ea N/A .PYXIS ODEN PRN PRN Reason: PER PROTOCOL Morphine Sulfate (Morphine Inj (Syringe))*) 2 mg IV Q4H PRN PRN Reason: PAIN - SEVERE Last Admin: 11/19/19 17:14 Dose: 2 mg Multivitamins/Minerals (Theragran/Minerals Tab*) 1 tab PO DAILY [facility] Last Admin: 11/19/19 08:22 Dose: 1 tab Ondansetron HCl (Zofran Inj*) 4 mg IV Q4H PRN PRN Reason: NAUSEA Last Admin: 11/16/19 11:00 Dose: 4 mg Pharmacy Consult (Zosyn Per Pharmacy*) 1 note FOLLOW UP .ZOSYN PER PHARMACY [facility] Pharmacy Consult (Vancomycin Per Pharmacy*) 1 note FOLLOW UP .VANC PER PHARMACY [facility]; Protocol Pharmacy Profile Note (Vancomycin Trough Check) 1 note FOLLOW UP 1230 ONE Stop: 11/20/19 12:31 Thiamine HCl (Vitamin B-1 Tab*) 100 mg PO DAILY [facility] Last Admin: 11/19/19 08:22 Dose: 100 mg Vital Signs - 8 hr 11/19/19 11/19/19 11/19/19 09:30 09:45 10:00 Temperature Pulse Rate 101 101 103 Respiratory 20 17 14 Rate Blood Pressure 169/89 164/79 163/89 (mmHg) O2 Sat by Pulse 94 93 98 Oximetry 11/19/19 11/19/19 11/19/19 10:15 10:31 10:56 Temperature Pulse Rate 122 118 Respiratory 15 16 14 Rate Blood Pressure 169/92 156/88 (mmHg) O2 Sat by Pulse 97 95 Oximetry 11/19/19 11/19/19 11/19/19 11:00 11:31 11:50 Temperature 99.0 F Pulse Rate 115 113 Respiratory 18 20 Rate Blood Pressure 142/81 158/82 (mmHg) O2 Sat by Pulse 84 100 Oximetry 11/19/19 11/19/19 11/19/19 12:00 12:30 13:00 Temperature Pulse Rate 107 106 102 Respiratory 17 17 16 Rate Blood Pressure 158/82 160/83 162/76 (mmHg) O2 Sat by Pulse 92 91 94 Oximetry 11/19/19 11/19/19 11/19/19 13:30 14:00 14:30 Temperature Pulse Rate 106 109 111 Respiratory 19 15 17 Rate Blood Pressure 167/83 160/85 159/88 (mmHg) O2 Sat by Pulse 96 94 94 Oximetry 11/19/19 11/19/19 11/19/19 15:00 15:30 16:00 Temperature Pulse Rate 111 102 105 Respiratory 17 17 17 Rate Blood Pressure 151/88 166/88 164/90 (mmHg) O2 Sat by Pulse 92 93 95 Oximetry 11/19/19 17:14 Temperature Pulse Rate Respiratory 13 Rate Blood Pressure (mmHg) O2 Sat by Pulse Oximetry Oxygen Devices in Use Now: Nasal Cannula Eyes: No Scleral Icterus Ears/Nose/Mouth/Throat: NL Teeth, Lips, Gums Neck: NL Appearance and Movements; NL JVP Respiratory: Symmetrical Chest Expansion and Respiratory Effort Cardiovascular: NL Sounds; No Murmurs; No JVD Abdominal: NL Sounds; No Tenderness; No Distention Extremities: - - multiple bruises, arm tender and warm,swollen Neurological: Alert and Oriented x 3 Result Diagrams: 11/19/19 04:13 11/19/19 04:13 Additional Lab and Data: Lab Results 11/15/19 11/15/19 11/15/19 Range/Units 19:51 19:51 19:51 WBC 6.2 (3.5-10.8) 10^3/uL RBC 3.05 L (3.70-4.87) 10^6 /uL Hgb 9.8 L (12.0-16.0) g/dL Hct 28 L (35-47) % MCV 92 (80-97) fL MCH 32 H (27-31) pg MCHC 35 (31-36) g/dL RDW 13 (10-15) % Plt Count 116 L (150-450) 10^3/uL MPV 7.0 L (7.4-10.4) fL Neut % (Auto) 86.9 % Lymph % (Auto) 2.7 % [place] % (Auto) 10.2 % Eos % (Auto) 0.0 % Baso % (Auto) 0.2 % Absolute Neuts (auto) 5.3 (1.5-7.7) 10^3/ul Absolute Lymphs (auto) 0.2 L (1.0-4.8) 10^3/ul Absolute Monos (auto) 0.6 (0-0.8) 10^3/ul Absolute Eos (auto) 0.0 (0-0.6) 10^3/ul Absolute Basos (auto) 0.0 (0-0.2) 10^3/ul Absolute Nucleated RBC 0.0 10^3/ul Nucleated RBC % 0.0 Sodium 119 L* (135-145) mmol/L Potassium 3.4 L (3.5-5.0) mmol/L Chloride 83 L (101-111) mmol/L Carbon Dioxide 25 (22-32) mmol/L Anion Gap 11 (2-11) mmol/L BUN 9 (6-24) mg/dL Creatinine 0.72 (0.51-0.95) mg/dL Est GFR ( Amer) 102.1 (>60) Est GFR (Non-Af Amer) 84.4 (>60) BUN/Creatinine Ratio 12.5 (8-20) Glucose 126 H (70-100) mg/dL Lactic Acid 1.7 (0.5-2.0) mmol/L Calcium 9.0 (8.6-10.3) mg/dL Magnesium 1.8 L (1.9-2.7) mg/dL Total Bilirubin 1.40 H (0.2-1.0) mg/dL AST 59 H (13-39) U/L ALT 28 (7-52) U/L Alkaline Phosphatase 201 H (34-104) U/L Total Creatine Kinase 557 H (10-223) U/L Total Protein 6.7 (6.4-8.9) g/dL Albumin 4.3 (3.2-5.2) g/dL Globulin 2.4 (2-4) g/dL Albumin/Globulin Ratio 1.8 (1-3) Serum Alcohol < 10 (<10) mg/dL Microbiology and Other Data: Microbiology 11/16/19 01:17 Nasal Screen MRSA (PCR) - Final Nasal Mrsa Not Detected Assess/Plan/Problems-Billing Assessment: - Patient Problems (1) Left humeral fracture Current Visit: Yes Status: Acute Code(s): S42.302A - UNSP FRACTURE OF SHAFT OF HUMERUS, LEFT ARM, INIT SNOMED Code(s): 14463013 Comment: pain control surgery when medically stable likely be to medically stable in 24h weaned precedex on antibiotics for uti blood cx neg will continue zosyn and vanco for now no further fever in the day growing kleb pneumoniae sensitive to zosyn.if still febrile, will switch to cefepime. will continue vanco for gram pos coverage for now as arm is tender,swollen (2) UTI (urinary tract infection) Current Visit: Yes Status: Acute Comment: klebsiella sensitive to zosyn will repeat cxr in am to r/o developing pcn high fever overnight and improving on zosyn min o2 requirement pl see above (3) Alcohol withdrawal delirium Current Visit: No Status: Acute Code(s): F10.231 - ALCOHOL DEPENDENCE WITH WITHDRAWAL DELIRIUM SNOMED Code(s): 6379570 Comment: off precedex wa protocol will add clonidine to help with withdrawal and hypertension.bp in 160s (4) Acute on chronic anemia Current Visit: Yes Status: Acute Code(s): D64.9 - ANEMIA, UNSPECIFIED SNOMED Code(s): 238306052 Comment: Hb on admission around 9, this AM around 7, likley dilutional, prior work up revealed WNL B12 and folate levels, and also had iron studies which did not reveal iron def. chronic anemia and pancytopenia from marrow suppression in the setting of half-way alcohol use will get stool occult will repeat b12,folate levels and replete with thiamine folate mvt (5) DVT prophylaxis Current Visit: Yes Status: Acute Code(s): Z29.9 - ENCOUNTER FOR PROPHYLACTIC MEASURES, UNSPECIFIED SNOMED Code(s): 517110501 Comment: SCD (6) Hypokalemia Current Visit: Yes Status: Acute Code(s): E87.6 - HYPOKALEMIA SNOMED Code( s): 69864638 Comment: 80 meq po k today repeat bmp check mg in am (7) Thrombocytopenia Current Visit: Yes Status: Acute Code(s): D69.6 - THROMBOCYTOPENIA, UNSPECIFIED SNOMED Code(s): 576864571 Comment: dilutional and due to BM suppression due to chronic ETOH use. avoid antiplatlet agents no evidence of acute bleeding (8) Hyponatremia Current Visit: Yes Status: Acute Code(s): E87.1 - HYPO-OSMOLALITY AND HYPONATREMIA SNOMED Code(s): 01759185 Comment: sec to beer potomania sig beer drinker stable (9) Hypertension Current Visit: Yes Status: Acute Code(s): I10 - ESSENTIAL (PRIMARY) HYPERTENSION SNOMED Code(s): 90456463 Comment: amlodipine started will add clonidine to help with withdrawal and hypertension if it helps can be switched to patch after her surgery which has lower side effects and easier to change only once a week Status and Disposition: Transfer ICU to floor
[2019-11-19 18:24] LABS: BUN/Creatinine Ratio 14.7 (8-20); EGFR African American 242.8 (>60); EGFR Non-African American 200.6 (>60)
[2019-11-19 18:28] LABS: Calcium 6.2 mg/dL (8.6-10.3); Potassium 2.5 mmol/L (3.5-5.0)
[2019-11-19] MEDS ORDERED: Iohexol 300* (CONTRAST) 10 ML SDV IV ONE (18:38)
[2019-11-19] MEDS ORDERED: Magnesium Sulfate 2 GM IV* 2 GM/50 ML BAG IVPB ONE (18:43)
[2019-11-19] MEDS ORDERED: Calcium Gluconate INJ* 2 GM in NS 0.9% 100 ML* 100 ML IV ONE (18:44)
[2019-11-19] MEDS: Cefepime 2 GM in Dextrose(*) 2 GM/50 ML BAG IV SCH (19:29)
[2019-11-19] MEDS: KCL 10 MEQ/50 ML IVPREMIX* 10 MEQ/50 ML BAG IV SCH ×3 (19:45→23:00)
[2019-11-19 21:19] LABS: Urine Appearance Cloudy; Urine Bilirubin Negative (Negative); Urine Blood 1+ (Negative); Urine Color Yellow; Urine Glucose 1+(50 mg/dL) (Negative); Urine Ketones Negative (Negative); Urine Nitrite Negative (Negative); Urine Protein Negative (Negative); Urine Specific Gravity 1.015 (1.010-1.030); Urine Urobilinogen Negative (Negative)
[2019-11-19 21:22] LABS: Urine Bacteria Absent (Absent); Urine Red Blood Cell 1+(3-5/hpf) (Absent); Urine White Blood Cell 3+(>20/hpf) (Absent)
[2019-11-19] MEDS: cloNIDine TAB* 0.1 MG PO SCH (21:30)
--- NOTE | 2019-11-20 00:08 | PN ---
Hospitalist Progress Note Date of Service: 11/20/19 Cross Cover Note 54F PMH ETOH use d/o, seizure d/o sp lobectomy, RA, who presented s/p mechanical fall with L humeral fracutre, pancytopenia, hypONa, UTI and hospital stay c/b persistent fever and ETOH w/drawal. Called to discuss fever this evening Plan by active problem: #Fever: Persistent and on broad spectrum, culture data showing Kleb in urine, doll sens, 1 set of blood cx 11/18 neg -Repeat blood cx -Standing tylenol -Ddx includes possible abscess vs DVT/PE vs drug fever -CT of arm to assess for fluid collection, if + will need re eval with ortho 1/ 7 AM, if neg, consider doppler of blt LE, pt has not been on any DVT ppx this admission for ?low plt (Started enoxparin tonight at PPX dose) -Start maint IVF @ 125ccNS x 3 bags #ETOH wdrawal: Was on precedex gtt, now still oN WAM #E Lytes: Repleted, repeat labs in for AM -CT of ARM to r/o collection, DVT, start IVF, start PPX for DVT
[2019-11-20] MEDS: Acetaminophen TAB* 325 MG PO SCH ×4 (00:24→18:41)
[2019-11-20] MEDS: Vancomycin(*) 1,250 MG in NS 0.9% 250 ML* 250 ML IVPB SCH ×2 (00:25→13:41)
[2019-11-20] MEDS: NS 0.9% 1000 ML** 1,000 ML IV SCH ×3 (00:30→15:24)
[2019-11-20] MEDS ORDERED: Enoxaparin(*) 40 MG/0.4 ML SYR SUBCUT SCH (01:00)
[2019-11-20 04:53] LABS: ABS Eosinophils 0.1 10^3/ul (0-0.6); ABS Lymphocytes 0.4 10^3/ul (1.0-4.8); ABS Monocytes 0.6 10^3/ul (0-0.8); ABS Neutrophils 1.6 10^3/ul (1.5-7.7); Eosinophil % 2.7 %; Hematocrit 23 % (35-47); Hemoglobin 7.7 g/dL (12.0-16.0); Mean Corpuscular HGB Conc 34 g/dL (31-36); Mean Corpuscular Hemoglobin 32 pg (27-31); Mean Corpuscular Volume 94 fL (80-97); Mean Platelet Volume 6.8 fL (7.4-10.4); Nucleated Red Blood Cells % 0.1; Platelet Count 156 10^3/uL (150-450); Red Blood Count 2.45 10^6 /uL (3.70-4.87); Red Cell Distribution Width 13 % (10-15); White Blood Count 2.6 10^3/uL (3.5-10.8)
[2019-11-20 05:10] LABS: BUN/Creatinine Ratio 12.1 (8-20); Calcium 8.9 mg/dL (8.6-10.3); EGFR African American 131.1 (>60); EGFR Non-African American 108.3 (>60); Potassium 3.7 mmol/L (3.5-5.0)
[2019-11-20] MEDS: Cefepime 2 GM in Dextrose(*) 2 GM/50 ML BAG IV SCH ×2 (05:34→17:57)
[2019-11-20 06:12] LABS: Magnesium 1.5 mg/dL (1.9-2.7)
[2019-11-20] MEDS ORDERED: Magnesium Sulfate 2 GM IV* 2 GM/50 ML BAG IVPB ONE ×2 (06:30→17:57)
[2019-11-20] MEDS: Morphine INJ* 2 MG/ML 1 ML SYRINGE (TWO MG - NEW SYRINGE VERSION) IV PRN ×3 (07:08→16:29)
[2019-11-20] MEDS: amLODIPine TAB* 5 MG PO SCH (09:09)
[2019-11-20] MEDS: Folic Acid TAB* 1 MG PO SCH (09:09)
[2019-11-20] MEDS: Thiamine TAB* 100 MG TAB PO SCH (09:09)
[2019-11-20] MEDS: cloNIDine TAB* 0.1 MG PO SCH ×2 (09:10→20:35)
[2019-11-20] MEDS: carBAMazepine TAB(*) 200 MG PO SCH ×4 (09:10→20:35)
[2019-11-20] MEDS: Potassium Chlor TAB* 20 MEQ TAB.ER PO SCH ×2 (09:10→20:34)
[2019-11-20] MEDS: Multivitamins/Minerals TAB PO SCH (09:10)
[2019-11-20] MEDS ORDERED: Vancomycin Trough Check NOTE FOLLOW UP ONE (12:30)
[2019-11-20] MEDS ORDERED: oxyCODONE TAB* 5 MG TAB PO PRN (12:44)
[2019-11-20] MEDS: Docusate CAP* 100 MG PO SCH ×2 (13:41→20:54)
--- NOTE | 2019-11-20 15:14 | PN ---
Progress Note - Progress Note Date of Service: 11/20/19 SOAP: Subjective: []Pt seen at bedside. She reports L upper arm pain with movement, comfortable at rest. Denies CP, SOB, dizziness, nausea, headache, dysuria, abd pain. Objective: []Gen: NAD, nontoxic appearing LUE: Extensive ecchymosis of L upper arm. Sling in place. f/e at wrist and digits intact. Sensation intact to light touch distally. Assessment: []1. L proximal humerus fracture, displaced 2. Hyponatremia, Anemic 3. Hx of L lobectomy for sx d/o 4. Alcoholism Plan: Per medicine patient is medically optimized. Need to identify source of infection and needs to be afebrile at least 24 hours prior to ORIF NWB LUE Remain in sling at all times with elevation of the head of the bed if possible ORIF left proximal humerus with Dr. Green possible 11/21 though need close monitoring for infection, if not 11/21 will aim for 11/23 Vital Signs Temp 99.5 F 11/20/19 11:34 Pulse 94 11/20/19 13:00 Resp 18 11/20/19 13:00 BP 149/93 11/20/19 13:00 Pulse Ox 96 11/20/19 13:00 Intake & Output 11/19/19 11/20/19 11/20/19 18:59 06:59 18:59 Intake Total 3200 3050 400 Output Total 2705 2725 1240 Balance 495 325 -840 Weight 149 lb 149 lb 14.629 oz Intake: IV Fluids 997 300 NS (0.9%) 997 300 IVPB 463 1550 ABX - VANCOMYCIN 276 ABX - ZOSYN 187 NS (0.9%) 1500 Potassium chloride 50 Oral 1740 1200 400 Output: Law 2705 2725 1240 Laboratory Last Values WBC 2.6 10^3/uL (3.5-10.8) L 11/20/19 04:40 RBC 2.45 10^6 /uL (3.70-4.87) L 11/20/19 04:40 Hgb 7.7 g/dL (12.0-16.0) L 11/20/19 04:40 Hct 23 % (35-47) L 11/20/19 04:40 MCV 94 fL (80-97) 11/20/19 04:40 MCH 32 pg (27-31) H 11/20/19 04:40 MCHC 34 g/dL (31-36) 11/20/19 04:40 RDW 13 % (10-15) 11/20/19 04:40 Plt Count 156 10^3/uL (150-450) 11/20/19 04:40 MPV 6.8 fL (7.4-10.4) L 11/20/19 04:40 Neut % (Auto) 61.3 % 11/20/19 04:40 Lymph % (Auto) 14.0 % 11/20/19 04:40 [place] % (Auto) 21.4 % 11/20/19 04:40 Eos % (Auto) 2.7 % 11/20/19 04:40 Baso % (Auto) 0.6 % 11/20/19 04:40 Absolute Neuts (auto) 1.6 10^3/ul (1.5-7.7) 11/20/19 04:40 Absolute Lymphs (auto) 0.4 10^3/ul (1.0-4.8) L 11/20/19 04:40 Absolute Monos (auto) 0.6 10^3/ul (0-0.8) 11/20/19 04:40 Absolute Eos (auto) 0.1 10^3/ul (0-0.6) 11/20/19 04:40 Absolute Basos (auto) 0.0 10^3/ul (0-0.2) 11/20/19 04:40 Absolute Nucleated RBC 0.0 10^3/ul 11/20/19 04:40 Nucleated RBC % 0.1 11/20/19 04:40 Hem Pathologist Commnt 11/16/19 05:14 Sodium 128 mmol/L (135-145) L 11/20/19 04:40 Potassium 3.7 mmol/L (3.5-5.0) 11/20/19 04:40 Chloride 97 mmol/L (101-111) L 11/20/19 04:40 Carbon Dioxide 26 mmol/L (22-32) 11/20/19 04:40 Anion Gap 5 mmol/L (2-11) 11/20/19 04:40 BUN 7 mg/dL (6-24) 11/20/19 04:40 Creatinine 0.58 mg/dL (0.51-0.95) 11/20/19 04:40 Est GFR ( Amer) 131.1 (>60) 11/20/19 04:40 Est GFR (Non-Af Amer) 108.3 (>60) 11/20/19 04:40 BUN/Creatinine Ratio 12.1 (8-20) 11/20/19 04:40 Glucose 101 mg/dL (70-100) H 11/20/19 04:40 Serum Osmolality 253 mOsm/kg (275-295) L 11/15/19 19:51 Lactic Acid 1.7 mmol/L (0.5-2.0) 11/15/19 19:51 Calcium 8.9 mg/dL (8.6-10.3) 11/20/19 04:40 Phosphorus 3.7 mg/dL (2.5-5.0) 11/18/19 06:09 Magnesium 1.5 mg/dL (1.9-2.7) L 11/20/19 04:40 Total Bilirubin 0.90 mg/dL (0.2-1.0) 11/19/19 04:13 AST 32 U/L (13-39) 11/19/19 04:13 ALT 19 U/L (7-52) 11/19/19 04:13 Alkaline Phosphatase 147 U/L (34-104) H 11/19/19 04:13 Total Creatine Kinase 147 U/L (10-223) 11/19/19 04:13 Total Protein 6.4 g/dL (6.4-8.9) 11/19/19 04:13 Albumin 3.8 g/dL (3.2-5.2) 11/19/19 04:13 Globulin 2.6 g/dL (2-4) 11/19/19 04:13 Albumin/Globulin Ratio 1.5 (1-3) 11/19/19 04:13 Vitamin B12 367 pg/mL (180-914) 11/18/19 14:28 Folate > 20.00 ng/mL (>3.99) 11/18/19 14:28 Urine Color Yellow 11/19/19 20:00 Urine Appearance Cloudy 11/19/19 20:00 Urine pH 6.0 (5-9) 11/19/19 20:00 Ur Specific [place] 1.015 (1.010-1.030) 11/19/19 20:00 Urine Protein Negative (Negative) 11/19/19 20:00 Urine Ketones Negative (Negative) 11/19/19 20:00 Urine Blood 1+ (Negative) A 11/19/19 20:00 Urine Nitrate Negative (Negative) 11/19/19 20:00 Urine Bilirubin Negative (Negative) 11/19/19 20:00 Urine Urobilinogen Negative (Negative) 11/19/19 20:00 Ur Leukocyte Esterase 3+ (Negative) A 11/19/19 20:00 Urine WBC (Auto) 3+(>20/hpf) (Absent) A 11/19/19 20:00 Urine RBC (Auto) 1+(3-5/hpf) (Absent) A 11/19/19 20:00 Urine Bacteria Absent (Absent) 11/19/19 20:00 Urine Osmolality 240 mOsm/kg (100-1150) 11/15/19 23:55 U Sodium Concentration 24 mmol/L 11/15/19 23:55 Urine Potassium 26.5 mmol/L 11/15/19 23:55 Ur Chloride Concentrat 25 mmol/L 11/15/19 23:55 Urine Glucose 1+(50 mg/dl) (Negative) A 11/19/19 20:00 Vancomycin Trough 10.9 mcg/mL 11/20/19 12:03 Carbamazepine 7.6 mcg/mL (4.0-12.0) 11/15/19 19:51 Serum Alcohol < 10 mg/dL (<10) 11/15/19 19:51
--- NOTE | 2019-11-20 17:55 | PN ---
Subjective Date of Service: 11/20/19 Interval History: More awake alert. No further withdrawal. Had fever again last night and her Zosyn was stopped, switched to Cefepime and Vanco continued for gram pos coverage. As the arm was more swollen and warm, a CT of UE was ordered which shows fluid collection and worsening displacement. Has been afebrile since and doing well. Family History: Unchanged from Admission Social History: Unchanged from Admission Past Medical History: Unchanged from Admission Objective Active Medications: Acetaminophen (Tylenol Tab*) 650 mg PO Q6H [facility] Last Admin: 11/20/19 12:11 Dose: 650 mg Amlodipine Besylate (Norvasc Tab*) 5 mg PO DAILY [facility] Last Admin: 11/20/19 09:09 Dose: 5 mg Carbamazepine (Tegretol Tab(*)) 200 mg PO QID [facility] Last Admin: 11/20/19 16:29 Dose: 200 mg Clonidine HCl (Catapres Tab*) 0.1 mg PO BID [facility] Last Admin: 11/20/19 09:10 Dose: 0.1 mg Diphenhydramine HCl (Benadryl Iv*) 25 mg IV Q6H PRN PRN Reason: AGITATION Last Admin: 11/17/19 04:46 Dose: 25 mg Docusate Sodium (Colace Cap*) 100 mg PO BID [facility] Last Admin: 11/20/19 13:41 Dose: 100 mg Enoxaparin Sodium (Lovenox(*)) 40 mg SUBCUT BEDTIME [facility] Last Admin: 11/20/19 00:25 Dose: 40 mg Folic Acid (Folvite Tab*) 1 mg PO DAILY [facility] Last Admin: 11/20/19 09:09 Dose: 1 mg Hydralazine HCl (Apresoline Iv*) 5 mg IV SLOW PU Q6H PRN PRN Reason: Systolic Bp Greater Than: 170 Last Admin: 11/19/19 08:12 Dose: 5 mg Vancomycin HCl 1,250 mg/ (Sodium Chloride) 250 mls @ 166.667 mls/hr IVPB Q12H [facility] Last Admin: 11/20/19 13:41 Dose: 166.667 mls/hr Cefepime HCl (Maxipime 2 Gm In Dextrose Duplex (*)) 2 gm in 50 mls @ 100 mls/ hr IV Q12H [facility] Last Admin: 11/20/19 05:34 Dose: 100 mls/hr Sodium Chloride (Ns 0.9% 1000 Ml) 1,000 mls @ 125 mls/hr IV PER RATE [facility] Stop: 11/22/19 08:14 Last Admin: 11/20/19 15:24 Dose: 125 mls/hr Lorazepam (Ativan Inj*) 0 - 3 mg IV PUSH .PER [place] PROTOCOL [facility]; Protocol Last Admin: 11/17/19 15:14 Dose: 1.5 mg Miscellaneous (Ativan Pyxis Oden) 1 ea N/A .PYXIS ODEN PRN PRN Reason: PER PROTOCOL Morphine Sulfate (Morphine Inj (Syringe))*) 2 mg IV Q4H PRN PRN Reason: PAIN - SEVERE Last Admin: 11/20/19 16:29 Dose: 2 mg Multivitamins/Minerals (Theragran/Minerals Tab*) 1 tab PO DAILY [facility] Last Admin: 11/20/19 09:10 Dose: 1 tab Ondansetron HCl (Zofran Inj*) 4 mg IV Q4H PRN PRN Reason: NAUSEA Last Admin: 11/16/19 11:00 Dose: 4 mg Oxycodone HCl (Roxycodone Tab*) 5 mg PO Q4H PRN PRN Reason: PAIN - MILD Last Admin: 11/20/19 13:41 Dose: 5 mg Pharmacy Consult (Vancomycin Per Pharmacy*) 1 note FOLLOW UP .VANC PER PHARMACY [facility]; Protocol Pharmacy Profile Note (Vancomycin Trough Check) 1 note FOLLOW UP 1230 ONE Stop: 11/22/19 12:31 Polyethylene Glycol/Electrolytes (Miralax*) 17 gm PO DAILY PRN PRN Reason: CONSTIPATION Potassium Chloride (Klor Con Er Tab*) 40 meq PO BID [facility] Last Admin: 11/20/19 09:10 Dose: 40 meq Thiamine HCl (Vitamin B-1 Tab*) 100 mg PO DAILY [facility] Last Admin: 11/20/19 09:09 Dose: 100 mg Vital Signs - 8 hr 11/20/19 11/20/19 11/20/19 10:00 11:00 11:34 Temperature 99.5 F Pulse Rate 95 93 Respiratory 16 17 Rate Blood Pressure 167/95 160/93 (mmHg) O2 Sat by Pulse 94 95 Oximetry 11/20/19 11/20/19 11/20/19 12:00 12:11 13:00 Temperature Pulse Rate 95 94 Respiratory 18 16 19 Rate Blood Pressure 168/90 149/93 (mmHg) O2 Sat by Pulse 96 96 Oximetry 11/20/19 11/20/19 11/20/19 14:00 15:00 15:48 Temperature 98.7 F Pulse Rate 98 94 Respiratory 18 16 Rate Blood Pressure 148/79 147/85 (mmHg) O2 Sat by Pulse 95 100 Oximetry 11/20/19 11/20/19 11/20/19 15:51 16:00 16:29 Temperature 98.7 F Pulse Rate 102 Respiratory 18 20 Rate Blood Pressure 96/75 (mmHg) O2 Sat by Pulse 99 Oximetry 11/20/19 11/20/19 16:31 17:00 Temperature Pulse Rate 104 101 Respiratory 20 15 Rate Blood Pressure 149/93 136/82 (mmHg) O2 Sat by Pulse 100 97 Oximetry Oxygen Devices in Use Now: None Eyes: No Scleral Icterus Ears/Nose/Mouth/Throat: NL Teeth, Lips, Gums Neck: NL Appearance and Movements; NL JVP Respiratory: Symmetrical Chest Expansion and Respiratory Effort Cardiovascular: NL Sounds; No Murmurs; No JVD Abdominal: NL Sounds; No Tenderness; No Distention Lymphatic: No Cervical Adenopathy Extremities: - - in slight, swelling somewhat better Neurological: Alert and Oriented x 3 Result Diagrams: 11/20/19 04:40 11/20/19 04:40 Additional Lab and Data: Lab Results 11/15/19 11/15/19 11/15/19 Range/Units 19:51 19:51 19:51 WBC 6.2 (3.5-10.8) 10^3/uL RBC 3.05 L (3.70-4.87) 10^6 /uL Hgb 9.8 L (12.0-16.0) g/dL Hct 28 L (35-47) % MCV 92 (80-97) fL MCH 32 H (27-31) pg MCHC 35 (31-36) g/dL RDW 13 (10-15) % Plt Count 116 L (150-450) 10^3/uL MPV 7.0 L (7.4-10.4) fL Neut % (Auto) 86.9 % Lymph % (Auto) 2.7 % [place] % (Auto) 10.2 % Eos % (Auto) 0.0 % Baso % (Auto) 0.2 % Absolute Neuts (auto) 5.3 (1.5-7.7) 10^3/ul Absolute Lymphs (auto) 0.2 L (1.0-4.8) 10^3/ul Absolute Monos (auto) 0.6 (0-0.8) 10^3/ul Absolute Eos (auto) 0.0 (0-0.6) 10^3/ul Absolute Basos (auto) 0.0 (0-0.2) 10^3/ul Absolute Nucleated RBC 0.0 10^3/ul Nucleated RBC % 0.0 Sodium 119 L* (135-145) mmol/L Potassium 3.4 L (3.5-5.0) mmol/L Chloride 83 L (101-111) mmol/L Carbon Dioxide 25 (22-32) mmol/L Anion Gap 11 (2-11) mmol/L BUN 9 (6-24) mg/dL Creatinine 0.72 (0.51-0.95) mg/dL Est GFR ( Amer) 102.1 (>60) Est GFR (Non-Af Amer) 84.4 (>60) BUN/Creatinine Ratio 12.5 (8-20) Glucose 126 H (70-100) mg/dL Lactic Acid 1.7 (0.5-2.0) mmol/L Calcium 9.0 (8.6-10.3) mg/dL Magnesium 1.8 L (1.9-2.7) mg/dL Total Bilirubin 1.40 H (0.2-1.0) mg/dL AST 59 H (13-39) U/L ALT 28 (7-52) U/L Alkaline Phosphatase 201 H (34-104) U/L Total Creatine Kinase 557 H (10-223) U/L Total Protein 6.7 (6.4-8.9) g/dL Albumin 4.3 (3.2-5.2) g/dL Globulin 2.4 (2-4) g/dL Albumin/Globulin Ratio 1.8 (1-3) Serum Alcohol < 10 (<10) mg/dL Microbiology and Other Data: Microbiology 11/16/19 01:17 Nasal Screen MRSA (PCR) - Final Nasal Mrsa Not Detected Assess/Plan/Problems-Billing Assessment: - Patient Problems (1) Left humeral fracture Current Visit: Yes Status: Acute Code(s): S42.302A - UNSP FRACTURE OF SHAFT OF HUMERUS, LEFT ARM, INIT SNOMED Code(s): 60988518 Comment: pain control ct reviewed acute communited fx pf surgical neck of humerus .fluid collection inferior suggestive of abscess vs hematoma blood cx neg kleb pneumonia from urine on vanco and cefepime zosyn stopped as pt was still febrile on zosyn unclear source of infection in addition to uti.cxr no pcn and pt not sob.as the arm was swollen warm, ct obtained to r/o abscess. fluid collection suggestive of hematoma vs abscess its unsual to develop abscess so quickly and favor hematoma however will monitor with the worsening discussed with ortho for surgery and further eval and pt is tentatively scheduled for surgery tomorrow. They want her to be afebrile for 24h prior to putting new hardware. Will monitor overnight npo after midnight stable for surgery from the medical standpoint. Withdrawal better with precedex. off precedex.hyponatemia improved from beer potomania and chronic.doll cytopenia from marrow suppression in the setting og alcohol use.h/o seizure d/ o.no known h/o cad and physically active prior to fall. (2) UTI (urinary tract infection) Current Visit: Yes Status: Acute Comment: klebsiella sensitive to cefepime h/o pseudomonas pl see above (3) Alcohol withdrawal delirium Current Visit: No Status: Acute Code(s): F10.231 - ALCOHOL DEPENDENCE WITH WITHDRAWAL DELIRIUM SNOMED Code(s): 5127213 Comment: off precedex wam protocol will add clonidine to help with withdrawal and hypertension. not needing ativan and not scoring on wam now (4) Acute on chronic anemia Current Visit: Yes Status: Acute Code(s): D64.9 - ANEMIA, UNSPECIFIED SNOMED Code(s): 022295232 Comment: Hb on admission around 9, this AM around 7, jessy baker, prior work up revealed WNL B12 and folate levels, and also had iron studies which did not reveal iron def. chronic anemia and pancytopenia from marrow suppression in the setting of intermission coordinator alcohol use will get stool occult repeated b12,folate levels and replete with thiamine folate mvt (5) DVT prophylaxis Current Visit: Yes Status: Acute Code(s): Z29.9 - ENCOUNTER FOR PROPHYLACTIC MEASURES, UNSPECIFIED SNOMED Code(s): 191366458 Comment: SCD (6) Hypokalemia Current Visit: Yes Status: Acute Code(s): E87.6 - HYPOKALEMIA SNOMED Code( s): 31832198 Comment: k 2.5 yesterday given po k 80 meq yesterday mg replaced will continue k 40 meq po daily and replace as appropriate (7) Thrombocytopenia Current Visit: Yes Status: Acute Code(s): D69.6 - THROMBOCYTOPENIA, UNSPECIFIED SNOMED Code(s): 595238366 Comment: dilutional and due to BM suppression due to chronic ETOH use. avoid antiplatlet agents no evidence of acute bleeding (8) Hyponatremia Current Visit: Yes Status: Acute Code(s): E87.1 - HYPO-OSMOLALITY AND HYPONATREMIA SNOMED Code(s): 08282372 Comment: sec to beer potomania sig beer drinker stable (9) Hypertension Current Visit: Yes Status: Acute Code(s): I10 - ESSENTIAL (PRIMARY) HYPERTENSION SNOMED Code(s): 34431555 Comment: amlodipine started will add clonidine to help with withdrawal and hypertension if it helps can be switched to patch after her surgery which has lower side effects and easier to change only once a week Status and Disposition: Transfer ICU to floor
[2019-11-20] MEDS: Polyethylene Glycol 3350* 17 GM PACKET PO PRN (20:35)
[2019-11-20] MEDS: oxyCODONE TAB* 5 MG TAB PO PRN (20:54)
[2019-11-21] MEDS: Acetaminophen TAB* 325 MG PO SCH ×2 (00:53→05:51)
[2019-11-21] MEDS: Vancomycin(*) 1,250 MG in NS 0.9% 250 ML* 250 ML IVPB SCH ×2 (00:54→14:22)
[2019-11-21] MEDS: Cefepime 2 GM in Dextrose(*) 2 GM/50 ML BAG IV SCH ×2 (05:51→22:24)
[2019-11-21] MEDS: oxyCODONE TAB* 5 MG TAB PO PRN ×2 (06:05→23:17)
[2019-11-21 06:34] LABS: ABS Eosinophils 0.1 10^3/ul (0-0.6); ABS Lymphocytes 0.4 10^3/ul (1.0-4.8); ABS Monocytes 0.4 10^3/ul (0-0.8); ABS Neutrophils 1.5 10^3/ul (1.5-7.7); Eosinophil % 5.2 %; Hematocrit 21 % (35-47); Hemoglobin 7.3 g/dL (12.0-16.0); Lymphocyte % 15.6 %; Mean Corpuscular HGB Conc 35 g/dL (31-36); Mean Corpuscular Hemoglobin 32 pg (27-31); Mean Corpuscular Volume 92 fL (80-97); Platelet Count 172 10^3/uL (150-450); Red Blood Count 2.27 10^6 /uL (3.70-4.87); Red Cell Distribution Width 13 % (10-15); White Blood Count 2.4 10^3/uL (3.5-10.8)
[2019-11-21 06:55] LABS: BUN/Creatinine Ratio 9.8 (8-20); Calcium 8.8 mg/dL (8.6-10.3); EGFR African American 152.1 (>60); EGFR Non-African American 125.7 (>60)
[2019-11-21 08:23] LABS: Magnesium 1.8 mg/dL (1.9-2.7)
--- NOTE | 2019-11-21 08:43 | PN ---
Progress Note - Progress Note Date of Service: 11/21/19 SOAP: Subjective: []Pt seen and examined at bedside. She feels well today with no complaints. Denies Headache, dizziness, CP, irregular heartbeats, SOB, cough, nausea, abd pain, dysuria, rash. L upper arm remains painful with any movement though comfortable at rest. Objective: []Gen: NAD, nontoxic appearing LUE: extensive ecchymosis of upper arm/shoulder. Able to f/e at wrist and MCPs. Sensation intact over deltoid as well as distally. Radial pulse 2+, cap refill less than two seconds distally. Assessment: []L humerus surgical neck fracture Plan: []NWB LUE Remain NPO, hold chemical dvt prophy for surgery planned this afternoon Hold tylenol to eval for fever, continue abx Will tentatively add to OR schedule for this afternoon but if elevated temp will need to postpone and identify source/ better control infection prior to ORIF. Discussed with Dr Chavez - optimized for surgery today. Will need 1 unit pRBC for anticipated surgical losses with pre-op anemia Vital Signs Temp 98.3 F 11/21/19 03:01 Pulse 93 11/21/19 03:01 Resp 18 11/21/19 06:05 BP 156/79 11/21/19 03:01 Pulse Ox 96 11/21/19 03:01 Intake & Output 11/20/19 11/21/19 11/21/19 18:59 06:59 18:59 Intake Total 3548 Output Total 1430 3100 Balance 2118 -3100 Intake: IV Fluids 2818 NS (0.9%) 2818 IVPB 330 ABX - VANCOMYCIN 275 Magnesium sulfate 55 Oral 400 Output: Law 1430 3100 Other: # Bowel Movements 1 Estimated Stool Amount Large Laboratory Last Values WBC 2.4 10^3/uL (3.5-10.8) L 11/21/19 06:09 RBC 2.27 10^6 /uL (3.70-4.87) L 11/21/19 06:09 Hgb 7.3 g/dL (12.0-16.0) L 11/21/19 06:09 Hct 21 % (35-47) L 11/21/19 06:09 MCV 92 fL (80-97) 11/21/19 06:09 MCH 32 pg (27-31) H 11/21/19 06:09 MCHC 35 g/dL (31-36) 11/21/19 06:09 RDW 13 % (10-15) 11/21/19 06:09 Plt Count 172 10^3/uL (150-450) 11/21/19 06:09 MPV 7.0 fL (7.4-10.4) L 11/21/19 06:09 Neut % (Auto) 59.8 % 11/21/19 06:09 Lymph % (Auto) 15.6 % 11/21/19 06:09 [place] % (Auto) 17.9 % 11/21/19 06:09 Eos % (Auto) 5.2 % 11/21/19 06:09 Baso % (Auto) 1.5 % 11/21/19 06:09 Absolute Neuts (auto) 1.5 10^3/ul (1.5-7.7) 11/21/19 06:09 Absolute Lymphs (auto) 0.4 10^3/ul (1.0-4.8) L 11/21/19 06:09 Absolute Monos (auto) 0.4 10^3/ul (0-0.8) 11/21/19 06:09 Absolute Eos (auto) 0.1 10^3/ul (0-0.6) 11/21/19 06:09 Absolute Basos (auto) 0.0 10^3/ul (0-0.2) 11/21/19 06:09 Absolute Nucleated RBC 0.0 10^3/ul 11/21/19 06:09 Nucleated RBC % 0.0 11/21/19 06:09 Hem Pathologist Commnt 11/16/19 05:14 INR (Anticoag Therapy) 0.99 (0.82-1.09) 11/21/19 08:57 Sodium 129 mmol/L (135-145) L 11/21/19 06:09 Potassium 4.0 mmol/L (3.5-5.0) 11/21/19 06:09 Chloride 98 mmol/L (101-111) L 11/21/19 06:09 Carbon Dioxide 25 mmol/L (22-32) 11/21/19 06:09 Anion Gap 6 mmol/L (2-11) 11/21/19 06:09 BUN 5 mg/dL (6-24) L 11/21/19 06:09 Creatinine 0.51 mg/dL (0.51-0.95) 11/21/19 06:09 Est GFR ( Amer) 152.1 (>60) 11/21/19 06:09 Est GFR (Non-Af Amer) 125.7 (>60) 11/21/19 06:09 BUN/Creatinine Ratio 9.8 (8-20) 11/21/19 06:09 Glucose 98 mg/dL (70-100) 11/21/19 06:09 Serum Osmolality 253 mOsm/kg (275-295) L 11/15/19 19:51 Lactic Acid 1.7 mmol/L (0.5-2.0) 11/15/19 19:51 Calcium 8.8 mg/dL (8.6-10.3) 11/21/19 06:09 Phosphorus 3.7 mg/dL (2.5-5.0) 11/18/19 06:09 Magnesium 1.8 mg/dL (1.9-2.7) L 11/21/19 06:09 Total Bilirubin 0.90 mg/dL (0.2-1.0) 11/19/19 04:13 AST 32 U/L (13-39) 11/19/19 04:13 ALT 19 U/L (7-52) 11/19/19 04:13 Alkaline Phosphatase 147 U/L (34-104) H 11/19/19 04:13 Total Creatine Kinase 147 U/L (10-223) 11/19/19 04:13 Total Protein 6.4 g/dL (6.4-8.9) 11/19/19 04:13 Albumin 3.8 g/dL (3.2-5.2) 11/19/19 04:13 Globulin 2.6 g/dL (2-4) 11/19/19 04:13 Albumin/Globulin Ratio 1.5 (1-3) 11/19/19 04:13 Vitamin B12 367 pg/mL (180-914) 11/18/19 14:28 Folate > 20.00 ng/mL (>3.99) 11/18/19 14:28 Urine Color Yellow 11/19/19 20:00 Urine Appearance Cloudy 11/19/19 20:00 Urine pH 6.0 (5-9) 11/19/19 20:00 Ur Specific [place] 1.015 (1.010-1.030) 11/19/19 20:00 Urine Protein Negative (Negative) 11/19/19 20:00 Urine Ketones Negative (Negative) 11/19/19 20:00 Urine Blood 1+ (Negative) A 11/19/19 20:00 Urine Nitrate Negative (Negative) 11/19/19 20:00 Urine Bilirubin Negative (Negative) 11/19/19 20:00 Urine Urobilinogen Negative (Negative) 11/19/19 20:00 Ur Leukocyte Esterase 3+ (Negative) A 11/19/19 20:00 Urine WBC (Auto) 3+(>20/hpf) (Absent) A 11/19/19 20:00 Urine RBC (Auto) 1+(3-5/hpf) (Absent) A 11/19/19 20:00 Urine Bacteria Absent (Absent) 11/19/19 20:00 Urine Osmolality 240 mOsm/kg (100-1150) 11/15/19 23:55 U Sodium Concentration 24 mmol/L 11/15/19 23:55 Urine Potassium 26.5 mmol/L 11/15/19 23:55 Ur Chloride Concentrat 25 mmol/L 11/15/19 23:55 Urine Glucose 1+(50 mg/dl) (Negative) A 11/19/19 20:00 Vancomycin Trough 10.9 mcg/mL 11/20/19 12:03 Carbamazepine 7.6 mcg/mL (4.0-12.0) 11/15/19 19:51 Serum Alcohol < 10 mg/dL (<10) 11/15/19 19:51 Blood Type O Positive 11/21/19 06:09 Antibody Screen Negative 11/21/19 06:09 Crossmatch See Detail 11/21/19 06:09
[2019-11-21] MEDS ORDERED: Magnesium Sulfate 2 GM IV* 2 GM/50 ML BAG IVPB ONE (08:47)
[2019-11-21 09:22] LABS: INR 0.99 (0.82-1.09)
[2019-11-21] MEDS: hydrALAZINE IV* 20 MG/ML VIAL IV SLOW PU PRN (11:37)
[2019-11-21] MEDS: LORazepam INJ* 2 MG/ML 1 ML VIAL IV PUSH SCH (11:47)
[2019-11-21] MEDS: Potassium Chlor TAB* 20 MEQ TAB.ER PO SCH ×2 (12:09→22:07)
[2019-11-21] MEDS: Docusate CAP* 100 MG PO SCH ×2 (12:09→22:05)
[2019-11-21] MEDS: carBAMazepine TAB(*) 200 MG PO SCH ×4 (12:09→22:06)
[2019-11-21] MEDS: Folic Acid TAB* 1 MG PO SCH (12:09)
[2019-11-21] MEDS: cloNIDine TAB* 0.1 MG PO SCH ×2 (12:09→22:08)
[2019-11-21] MEDS: amLODIPine TAB* 5 MG PO SCH (12:09)
[2019-11-21] MEDS: Multivitamins/Minerals TAB PO SCH (12:09)
[2019-11-21] MEDS: Thiamine TAB* 100 MG TAB PO SCH (12:10)
[2019-11-21] MEDS: Morphine INJ* 2 MG/ML 1 ML SYRINGE (TWO MG - NEW SYRINGE VERSION) IV PRN ×2 (13:28→22:07)
[2019-11-21] MEDS ORDERED: Famotidine IV* 10 MG/ML 2 ML (20 mg) IV ONE (13:45)
[2019-11-21] MEDS ORDERED: Dexamethasone TAB* 4 MG PO ONE (13:45)
[2019-11-21] MEDS ORDERED: Ondansetron ODT TAB* 4 MG PO ONE (13:45)
[2019-11-21] MEDS ORDERED: Buffered Lidocaine 1% SYRIN* 1 ML/SYRINGE INTRADERM ONE (13:45)
[2019-11-21] MEDS ORDERED: Naloxone* 0.4 MG/ML 1 ML VIAL IV PRN (13:46)
[2019-11-21] MEDS ORDERED: fentaNYL* 50 MCG/ML 2 ML VIAL (100 MCG VIAL) IV PRN (13:46)
[2019-11-21] MEDS ORDERED: PROCHLORPERAZINE INJ 5 MG/ML 2 ML VIAL IV PRN (13:46)
[2019-11-21] MEDS ORDERED: HYDROmorphone INJ1* 1 MG/ML SYRINGE IV PRN (13:46)
[2019-11-21] MEDS ORDERED: DiMENhydriNATE IV* 50 MG/ML VIAL IV PUSH PRN (13:46)
[2019-11-21] MEDS ORDERED: fentaNYL* 50 MCG/ML 2 ML VIAL (100 MCG VIAL) ONE (13:52)
[2019-11-21] MEDS ORDERED: Midazolam* 1 MG/ML 10 ML VIAL (10 MG) ONE ×2 (13:53→15:55)
[2019-11-21] MEDS ORDERED: KETAMINE HCL* 50 MG/ML 10 ML VIAL ONE (13:53)
[2019-11-21] MEDS ORDERED: Lactated Ringers 1000 ML Bag* 1,000 ML IV SCH (14:00)
[2019-11-21] MEDS ORDERED: Dexamethasone TAB* 4 MG ONE (14:53)
[2019-11-21] MEDS ORDERED: Ondansetron ODT TAB* 4 MG ONE (14:53)
[2019-11-21] MEDS ORDERED: Famotidine IV* 10 MG/ML 2 ML (20 mg) ONE (14:54)
[2019-11-21] MEDS ORDERED: Bupivacaine 0.5%* 50 ML MDV VIAL ONE (15:12)
[2019-11-21] MEDS ORDERED: fentaNYL* 50 MCG/ML 5 ML VIAL (250 MCG VIAL) ONE (15:55)
[2019-11-21] MEDS ORDERED: Propofol* 1,000 MG/100 ML BTL ONE (16:21)
[2019-11-21] MEDS ORDERED: Bupivacaine 0.25% SDV PF* 10 ML VIAL INJ ONE (16:22)
[2019-11-21] MEDS ORDERED: ROPIVACAINE 5 MG/ML 30 ML BTL (0.5%) ONE (16:22)
[2019-11-21] MEDS ORDERED: Metoprolol Tartrate IV* 1 MG/ML 5 ML VIAL ONE (16:25)
[2019-11-21] MEDS ORDERED: hydrALAZINE IV* 20 MG/ML VIAL ONE (16:25)
--- NOTE | 2019-11-21 16:51 | PN ---
Subjective Date of Service: 11/21/19 Interval History: HOSPITALIST PROGRESS NOTE Patient seen and examined at bedside. Care reviewed and d/w Peggy Luz RN. She c/o left arm pain, but otherwise feels well. Family History: Unchanged from Admission Social History: Unchanged from Admission Past Medical History: Unchanged from Admission Objective Active Medications: Amlodipine Besylate (Norvasc Tab*) 5 mg PO DAILY [facility] Last Admin: 11/21/19 12:09 Dose: Not Given Carbamazepine (Tegretol Tab(*)) 200 mg PO QID [facility] Last Admin: 11/21/19 12:09 Dose: Not Given Clonidine HCl (Catapres Tab*) 0.1 mg PO BID [facility] Last Admin: 11/21/19 12:09 Dose: Not Given Dimenhydrinate (Dramamine Iv*) 12.5 mg IV PUSH ONCE PRN PRN Reason: NAUSEA/VOMITING Diphenhydramine HCl (Benadryl Iv*) 25 mg IV Q6H PRN PRN Reason: AGITATION Last Admin: 11/17/19 04:46 Dose: 25 mg Docusate Sodium (Colace Cap*) 100 mg PO BID [facility] Last Admin: 11/21/19 12:09 Dose: Not Given Fentanyl Citrate (Fentanyl*) 25 mcg IV Q5M PRN PRN Reason: PAIN - MODERATE Folic Acid (Folvite Tab*) 1 mg PO DAILY [facility] Last Admin: 11/21/19 12:09 Dose: Not Given Hydralazine HCl (Apresoline Iv*) 5 mg IV SLOW PU Q6H PRN PRN Reason: Systolic Bp Greater Than: 170 Last Admin: 11/21/19 11:37 Dose: 5 mg Hydromorphone HCl (Dilaudid Inj1s*) 0.2 mg IV Q5M PRN PRN Reason: PAIN - SEVERE Vancomycin HCl 1,250 mg/ (Sodium Chloride) 250 mls @ 166.667 mls/hr IVPB Q12H [facility] Last Admin: 11/21/19 14:22 Dose: 166.667 mls/hr Cefepime HCl (Maxipime 2 Gm In Dextrose Duplex (*)) 2 gm in 50 mls @ 100 mls/ hr IV Q12H [facility] Last Admin: 11/21/19 05:51 Dose: 100 mls/hr Sodium Chloride (Ns 0.9% 1000 Ml) 1,000 mls @ 125 mls/hr IV PER RATE [facility] Stop: 11/22/19 08:14 Last Admin: 11/20/19 15:24 Dose: 125 mls/hr Lactated Ringer's (Lactated Ringers 1000 Ml Bag*) 1,000 mls @ 125 mls/hr IV PER RATE [facility] Lorazepam (Ativan Inj*) 0 - 3 mg IV PUSH .PER WAM PROTOCOL [facility]; Protocol Last Admin: 11/21/19 11:47 Dose: 1.5 mg Miscellaneous (Ativan Pyxis Ramon) 1 ea N/A .PYXIS RAMON PRN PRN Reason: PER PROTOCOL Morphine Sulfate (Morphine Inj (Syringe))*) 2 mg IV Q4H PRN PRN Reason: PAIN - SEVERE Last Admin: 11/21/19 13:28 Dose: 2 mg Multivitamins/Minerals (Theragran/Minerals Tab*) 1 tab PO DAILY [facility] Last Admin: 11/21/19 12:09 Dose: Not Given Naloxone HCl (Narcan*) 0.08 mg IV Q2M PRN PRN Reason: severe induced resp depression Ondansetron HCl (Zofran Inj*) 4 mg IV Q4H PRN PRN Reason: NAUSEA Last Admin: 11/16/19 11:00 Dose: 4 mg Oxycodone HCl (Roxycodone Tab*) 5 mg PO Q4H PRN PRN Reason: PAIN - MILD Last Admin: 11/20/19 13:41 Dose: 5 mg Oxycodone HCl (Roxycodone Tab*) 10 mg PO Q4H PRN PRN Reason: PAIN - MODERATE Last Admin: 11/21/19 06:05 Dose: 10 mg Pharmacy Consult (Vancomycin Per Pharmacy*) 1 note FOLLOW UP .VANC PER PHARMACY [facility]; Protocol Pharmacy Profile Note (Vancomycin Trough Check) 1 note FOLLOW UP 1230 ONE Stop: 11/22/19 12:31 Polyethylene Glycol/Electrolytes (Miralax*) 17 gm PO DAILY PRN PRN Reason: CONSTIPATION Last Admin: 11/20/19 20:35 Dose: 17 gm Potassium Chloride (Klor Con Er Tab*) 40 meq PO BID [facility] Last Admin: 11/21/19 12:09 Dose: Not Given Prochlorperazine Edisylate (Compazine Inj*) 5 mg IV ONCE PRN PRN Reason: NAUSEA/VOMITING Thiamine HCl (Vitamin B-1 Tab*) 100 mg PO DAILY [facility] Last Admin: 11/21/19 12:10 Dose: Not Given Vital Signs - 8 hr 11/21/19 11/21/19 11/21/19 11:47 12:00 12:10 Temperature 98.1 F Pulse Rate 98 Respiratory 20 20 20 Rate Blood Pressure 185/95 (mmHg) O2 Sat by Pulse 98 Oximetry 11/21/19 11/21/19 11/21/19 12:19 13:28 14:00 Temperature 98.7 F 98.4 F Pulse Rate 95 94 Respiratory 16 18 18 Rate Blood Pressure 180/102 167/96 (mmHg) O2 Sat by Pulse 98 98 Oximetry Oxygen Devices in Use Now: None Appearance: Middle aged lady sitting up in bed in NAD Eyes: No Scleral Icterus Ears/Nose/Mouth/Throat: Mucous Membranes Moist Neck: Trachea Midline Respiratory: Symmetrical Chest Expansion and Respiratory Effort, Clear to Auscultation Cardiovascular: NL Sounds; No Murmurs; No JVD, RRR Extremities: - - Large ecchymosis to LUE extending to neck and back, sensation intact, can wiggle left hand and fingers Neurological: Alert and Oriented x 3, NL Muscle Strength and Tone Result Diagrams: 11/21/19 06:09 11/21/19 06:09 Assess/Plan/Problems-Billing Assessment: Mrs Gonzalez is a 54yo F with PMH of ETOH abuse, seizure disorder, RA, who presented to ED after a fall, found to have left humerus fracture. Hospital stay complicated by ETOH withdrawal and UTI. - Patient Problems (1) Left humeral fracture Comment: - Ortho plans to take to OR today. - Continue pain management. (2) UTI (urinary tract infection) Comment: - Present on admission, not Law catheter related. - Klebsiella sensitive to cefepime. - D/c Vancomycin. (3) Alcohol withdrawal delirium Comment: - Required Precedex, now low scores on WAM. (4) Acute on chronic anemia Comment: - Hb on admission around 9, this AM around 7, jessy baker, prior work up revealed WNL B12 and folate levels, and also had iron studies which did not reveal iron def. 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 - Received 1 PRBC prior to surgery - will continue to monitor. (5) DVT prophylaxis Comment: SCD
[2019-11-21 20:03] LABS: Hematocrit 29 % (35-47); Hemoglobin 9.7 g/dL (12.0-16.0)
--- NOTE | 2019-11-22 00:50 | OP ---
DATE OF OPERATION: 11/21/19 - ROOM #340 DATE OF : 65 SURGEON: Titus Green MD CORD CUTTER: SANTOS Lucio. A physician neurosurgical physician assistant was required for the length for the procedure for assistance with patient positioning, retraction, instrumentation, and closure. ANESTHESIOLOGIST: Dr. Freddy Nixon. ANESTHESIA: Regional nerve block, interscalene, as well as general sedation. PRE-OP DIAGNOSIS: Left proximal humerus fracture, displaced. POST-OP DIAGNOSIS: Left proximal humerus fracture, displaced. OPERATIVE PROCEDURE: 1. Open reduction internal fixation, left shoulder proximal humerus fracture, surgical neck, with lateral locking plate. 2. Left shoulder open proximal biceps tenodesis. ANTIBIOTICS: Vancomycin was dosed, within 1 hour of skin incision. Dosing was per pharmacy, but was likely 1.25 mg IV. IV FLUIDS: See anesthesia note. QNPA-HA-LNPR TIME: 104 minutes. RADIATION EXPOSURE: Large C-arm utilized. POSITIONING: Lazy beach-chair positioning with table head extension. COMPLICATIONS: None. ESTIMATED BLOOD LOSS: Approximately 100 to 200 cc. SPECIMENS: None. IMPLANTS: [employer]s proximal humerus left lateral locking plate, older of the two versions of plate available. INDICATIONS FOR PROCEDURE: The patient is a 54-year-old woman, left-hand dominant, who works at [employer], who sustained a mechanical fall with a left proximal humerus fracture, surgical neck, severely displaced. Displacement was qualified with CT scan which confirmed the significance of the displacement. The patient initially injured herself on 11/14/19, 7 days preoperative. She was admitted to [facility] on 11/15/19. Orthopedic Surgery consult was called. One of my partner saw the patient and then I saw the patient on 11/16/19. The patient had numerous other medical problems, which prevented surgery initially. The patient was admitted for hyponatremia, but she soon went into alcohol withdrawal which further delayed medical clearance for surgery. The patient was also noted to have urinary tract infection for which she was placed on broad-spectrum antibiotics. The patient was pancytopenic throughout the hospital course, thought to be chronic with a Hematocrit of 21. Therefore, the medicine service transfused the patient 1 unit PRBC preoperatively. I discussed with the patient's treatment for displaced proximal humerus fracture the first day I met the patient and her . The patient was able to answer questions at that time, but did not seem fully alert and oriented. Preoperatively today, I again discussed the fracture, nonoperative and operative treatment. The patient was interested in surgery. I discussed risks and potential complications of surgery including bleeding, infection, nerve or blood vessel injury, hardware complication, nonunion, osteonecrosis, need for revision surgery, risk of hardware cut out with future falls. The patient opted to move forward with surgery. DESCRIPTION OF PROCEDURE: In the preoperative holding, the patient signed a written consent. Operative extremity was marked in the preoperative holding. The patient underwent a regional interscalene nerve block by Dr. Nixon in the preoperative holding. The patient was brought back to the operating room and received some light sedation. The patient was placed in the beach-chair position. A table licensed midwife was used. I brought C-arm in and confirmed excellent images through the radiolucent table. Left shoulder was prepped and draped. Surgical time-out was performed. A skin incision, a deltopectoral approach. Dissected down to the fascial layer. Dissected between deltoid and pectoralis. I took the cephalic vein to the lateral side with the deltoid. Removed some clot. I used cautery to stop any few small bleeders in the subcutaneous tissue. Identified the pectoralis tendon. Released some of it superior edge upper 2 cm. Identified biceps tendon. Tenodesed it to the pectoralis major tendon using a [id number] stitch, using a FiberWire #2 suture. Followed the biceps tendon more proximally. I followed it to the glenoid and then released it just proximal to the level of the tenodesis. I placed manipulation sutures, 4 , in the rotator cuff, using FiberWire #2 suture. These enabled me to easily manipulate the humeral head. I lined up the bicipital groove at the fracture site. I placed 1 K-wire across the fracture site, but I later removed it as this did not stabilize the fracture much. I removed a minimal amount of clot from the fracture site. I placed a lateral plate, the older of the 2 models from [employer]. I placed a nonlocking screw distally in the oval hole. X-rays were obtained and showed adequate reduction and the plate was reasonably placed, although I wanted to move it slightly more proximal. I did so and then I placed a nonlocking screw proximally in the humeral head. Improved the reduction a little bit more. At this point, I placed my sutures through the suture holes in the plate. I improved the reduction a little bit more using manipulation and placed locking screws proximal and distal to the fracture site. X-rays showed good reduction and plate placement. I next tied my rotator cuff sutures to the plate, some horizontal mattress, some simple knots. I next placed additional locking screws throughout the plate. I removed the nonlocking screw from the humeral head. All my screws were placed at least 6 to 8 mm short of the distance measured to the subchondral bone of the humeral head,so as not to risk any hardware prominence even with some collapse of the humeral head. Final images showed excellent reduction and fixation. Irrigation. I next closed the snip that I had made in the pectoralis tendon with a uiqlfm-by-[id number] stitch using FiberWire #2 suture. Closure of the deltopectoral facia with a running stitch using Ethibond #1 suture. Closure of the subcutaneous tissue with buried simple stitches using Vicryl 2.0 suture. Closure of the skin with tunde. No local anesthesia. Xeroform, 4x4s Tegaderm. The patient was placed in a sling, left upper extremity. DISPOSITION: The patient was transferred to the PACU after sedation was lightened. The patient was then to be the hospitalist service and the floor of the hospital. Postoperatively, the patient's interscalene block is thought to work for approximately the next 24 hours. Starting tomorrow, the patient will need some type of pain medication, oral or IV to control left shoulder pain. Hopefully, narcotics can be minimized based on the patient's alcohol addiction, recent withdrawal, and recent delirium. The patient should be continued on IV antibiotics for 48 hours to prevent skin infection or deep infection at the fracture site. This is given the patient's immunocompromise and the significant hardware placed. I requested that the vancomycin that the patient has been taking for broad coverage of her urinary tract infection be continued for 48 hours for the left shoulder. The patient's diet will be advanced as tolerated. She will remain in that left shoulder sling for now. Physical Therapy can move the elbow, wrist, and fingers; but they will hold off on moving the shoulder for 2 weeks. The patient will follow up with me in clinic in 10 to 14 days. If the patient is comfortable doing pendulum, she can do pendulums with physical therapy starting immediately. The patient's dressing will be changed on postoperative day 3. [id number]/[facility] #: [id number] MTDD
[2019-11-22] MEDS: Vancomycin(*) 1,250 MG in NS 0.9% 250 ML* 250 ML IVPB SCH ×2 (00:56→13:34)
[2019-11-22] MEDS: Acetaminophen TAB* 325 MG PO PRN ×2 (00:56→11:14)
[2019-11-22] MEDS: Morphine INJ* 2 MG/ML 1 ML SYRINGE (TWO MG - NEW SYRINGE VERSION) IV PRN ×2 (02:31→07:35)
[2019-11-22] MEDS: oxyCODONE TAB* 5 MG TAB PO PRN ×6 (03:18→23:09)
[2019-11-22] MEDS: Cefepime 2 GM in Dextrose(*) 2 GM/50 ML BAG IV SCH ×2 (06:29→18:26)
[2019-11-22 06:40] LABS: Hematocrit 25 % (35-47); Hemoglobin 8.7 g/dL (12.0-16.0); Mean Corpuscular HGB Conc 35 g/dL (31-36); Mean Corpuscular Hemoglobin 31 pg (27-31); Mean Corpuscular Volume 91 fL (80-97); Mean Platelet Volume 6.6 fL (7.4-10.4); Platelet Count 262 10^3/uL (150-450); Red Blood Count 2.78 10^6 /uL (3.70-4.87); Red Cell Distribution Width 14 % (10-15); White Blood Count 5.2 10^3/uL (3.5-10.8)
[2019-11-22 07:04] LABS: BUN/Creatinine Ratio 15.5 (8-20); Calcium 9.1 mg/dL (8.6-10.3); EGFR African American 131.1 (>60); EGFR Non-African American 108.3 (>60); Potassium 4.4 mmol/L (3.5-5.0)
[2019-11-22 07:35] LABS: ABS Basophils 0.1 10^3/ul (0-0.2); ABS Eosinophils 0.1 10^3/ul (0-0.6); ABS Lymphocytes 0.5 10^3/ul (1.0-4.8); ABS Monocytes 1.2 10^3/ul (0-0.8); ABS Neutrophils 3.4 10^3/ul (1.5-7.7); Eosinophil % 1.1 %; Lymphocyte % 9.8 %
[2019-11-22 08:43] LABS: Magnesium 1.9 mg/dL (1.9-2.7)
[2019-11-22] MEDS ORDERED: Lactated Ringers 1000 ML Bag* 1,000 ML IV SCH (09:00)
--- NOTE | 2019-11-22 09:10 | PN ---
Progress Note - Progress Note Date of Service: 11/22/19 SOAP: Subjective: []Pt seen and examined at bedside. She is feeling and her LUE pain is controlled at rest, very painful with any movement. Denies feeling of fever, chills, CP, SOB, dizziness or nausea. Objective: []Gen: NAD, nontoxic appearing LUE: Surgical dressing with dry bloody strike through. Continued extensive ecchymosis of upper arm/shoulder. Able to f/e at wrist and MCPs. Sensation intact over deltoid as well as distally. Radial pulse 2+, cap refill less than two seconds distally. Assessment: []L humerus surgical neck fracture POD 1 sp ORIF Plan: []NWB LUE, no ROM at the shoulder. Okay for elbow, wrist and digit ROM Lovenox restarted today, no need for DVT prophy outpt H&H acceptable no need for further transfusion at this time Needs 48 hours of vanco post op, thereafter continuation of abx determined by medicine team for appropriate duration of UTI tx Dressing change POD 3 by ortho Vital Signs Temp 98.4 F 11/22/19 07:53 Pulse 100 11/22/19 08:19 Resp 18 11/22/19 08:35 BP 152/82 11/22/19 07:53 Pulse Ox 96 11/22/19 07:53 Intake & Output 11/21/19 11/22/19 11/22/19 18:59 06:59 18:59 Intake Total 1400 Output Total 2500 1625 Balance -2500 -225 Intake: IV Fluids 310 ABX - CEFEPIME 55 ABX - VANCOMYCIN 255 Oral 1090 Output: Law 2500 1625 Laboratory Last Values WBC 5.2 10^3/uL (3.5-10.8) 11/22/19 06:21 RBC 2.78 10^6 /uL (3.70-4.87) L 11/22/19 06:21 Hgb 8.7 g/dL (12.0-16.0) L 11/22/19 06:21 Hct 25 % (35-47) L 11/22/19 06:21 MCV 91 fL (80-97) 11/22/19 06:21 MCH 31 pg (27-31) 11/22/19 06:21 MCHC 35 g/dL (31-36) 11/22/19 06:21 RDW 14 % (10-15) 11/22/19 06:21 Plt Count 262 10^3/uL (150-450) 11/22/19 06:21 MPV 6.6 fL (7.4-10.4) L 11/22/19 06:21 Neut % (Auto) 65.8 % 11/22/19 06:21 Lymph % (Auto) 9.8 % 11/22/19 06:21 [place] % (Auto) 22.3 % 11/22/19 06:21 Eos % (Auto) 1.1 % 11/22/19 06:21 Baso % (Auto) 1.0 % 11/22/19 06:21 Absolute Neuts (auto) 3.4 10^3/ul (1.5-7.7) 11/22/19 06:21 Absolute Lymphs (auto) 0.5 10^3/ul (1.0-4.8) L 11/22/19 06:21 Absolute Monos (auto) 1.2 10^3/ul (0-0.8) H 11/22/19 06:21 Absolute Eos (auto) 0.1 10^3/ul (0-0.6) 11/22/19 06:21 Absolute Basos (auto) 0.1 10^3/ul (0-0.2) 11/22/19 06:21 Absolute Nucleated RBC 0.0 10^3/ul 11/22/19 06:21 Nucleated RBC % 0.0 11/22/19 06:21 Hem Pathologist Commnt 11/16/19 05:14 INR (Anticoag Therapy) 0.99 (0.82-1.09) 11/21/19 08:57 Sodium 128 mmol/L (135-145) L 11/22/19 06:21 Potassium 4.4 mmol/L (3.5-5.0) 11/22/19 06:21 Chloride 97 mmol/L (101-111) L 11/22/19 06:21 Carbon Dioxide 25 mmol/L (22-32) 11/22/19 06:21 Anion Gap 6 mmol/L (2-11) 11/22/19 06:21 BUN 9 mg/dL (6-24) 11/22/19 06:21 Creatinine 0.58 mg/dL (0.51-0.95) 11/22/19 06:21 Est GFR ( Amer) 131.1 (>60) 11/22/19 06:21 Est GFR (Non-Af Amer) 108.3 (>60) 11/22/19 06:21 BUN/Creatinine Ratio 15.5 (8-20) 11/22/19 06:21 Glucose 102 mg/dL (70-100) H 11/22/19 06:21 Serum Osmolality 253 mOsm/kg (275-295) L 11/15/19 19:51 Lactic Acid 1.7 mmol/L (0.5-2.0) 11/15/19 19:51 Calcium 9.1 mg/dL (8.6-10.3) 11/22/19 06:21 Phosphorus 3.7 mg/dL (2.5-5.0) 11/18/19 06:09 Magnesium 1.9 mg/dL (1.9-2.7) 11/22/19 06:21 Total Bilirubin 0.90 mg/dL (0.2-1.0) 11/19/19 04:13 AST 32 U/L (13-39) 11/19/19 04:13 ALT 19 U/L (7-52) 11/19/19 04:13 Alkaline Phosphatase 147 U/L (34-104) H 11/19/19 04:13 Total Creatine Kinase 147 U/L (10-223) 11/19/19 04:13 Total Protein 6.4 g/dL (6.4-8.9) 11/19/19 04:13 Albumin 3.8 g/dL (3.2-5.2) 11/19/19 04:13 Globulin 2.6 g/dL (2-4) 11/19/19 04:13 Albumin/Globulin Ratio 1.5 (1-3) 11/19/19 04:13 Vitamin B12 367 pg/mL (180-914) 11/18/19 14:28 Folate > 20.00 ng/mL (>3.99) 11/18/19 14:28 Urine Color Yellow 11/19/19 20:00 Urine Appearance Cloudy 11/19/19 20:00 Urine pH 6.0 (5-9) 11/19/19 20:00 Ur Specific [place] 1.015 (1.010-1.030) 11/19/19 20:00 Urine Protein Negative (Negative) 11/19/19 20:00 Urine Ketones Negative (Negative) 11/19/19 20:00 Urine Blood 1+ (Negative) A 11/19/19 20:00 Urine Nitrate Negative (Negative) 11/19/19 20:00 Urine Bilirubin Negative (Negative) 11/19/19 20:00 Urine Urobilinogen Negative (Negative) 11/19/19 20:00 Ur Leukocyte Esterase 3+ (Negative) A 11/19/19 20:00 Urine WBC (Auto) 3+(>20/hpf) (Absent) A 11/19/19 20:00 Urine RBC (Auto) 1+(3-5/hpf) (Absent) A 11/19/19 20:00 Urine Bacteria Absent (Absent) 11/19/19 20:00 Urine Osmolality 240 mOsm/kg (100-1150) 11/15/19 23:55 U Sodium Concentration 24 mmol/L 11/15/19 23:55 Urine Potassium 26.5 mmol/L 11/15/19 23:55 Ur Chloride Concentrat 25 mmol/L 11/15/19 23:55 Urine Glucose 1+(50 mg/dl) (Negative) A 11/19/19 20:00 Vancomycin Trough 10.9 mcg/mL 11/20/19 12:03 Carbamazepine 7.6 mcg/mL (4.0-12.0) 11/15/19 19:51 Serum Alcohol < 10 mg/dL (<10) 11/15/19 19:51 Blood Type O Positive 11/21/19 06:09 Antibody Screen Negative 11/21/19 06:09 Crossmatch See Detail 11/21/19 06:09
[2019-11-22] MEDS: Folic Acid TAB* 1 MG PO SCH (09:17)
[2019-11-22] MEDS: Potassium Chlor TAB* 20 MEQ TAB.ER PO SCH ×2 (09:17→21:34)
[2019-11-22] MEDS: Docusate CAP* 100 MG PO SCH ×2 (09:17→21:34)
[2019-11-22] MEDS: Multivitamins/Minerals TAB PO SCH (09:17)
[2019-11-22] MEDS: carBAMazepine TAB(*) 200 MG PO SCH ×4 (09:17→21:34)
[2019-11-22] MEDS: amLODIPine TAB* 5 MG PO SCH (09:17)
[2019-11-22] MEDS: Thiamine TAB* 100 MG TAB PO SCH (09:17)
[2019-11-22] MEDS: cloNIDine TAB* 0.1 MG PO SCH ×2 (09:17→21:34)
[2019-11-22] MEDS ORDERED: Vancomycin Trough Check NOTE FOLLOW UP ONE (12:30)
[2019-11-22] MEDS: Enoxaparin(*) 40 MG/0.4 ML SYR SUBCUT SCH (12:37)
--- NOTE | 2019-11-22 13:00 | PN ---
Subjective Date of Service: 11/22/19 Interval History: HOSPITALIST PROGRESS NOTE Patient seen and examined at bedside. Care reviewed and d/w Dar Almeida RN. She feels well today. Pain is well controlled, was able to sleep last night. Family History: Unchanged from Admission Social History: Unchanged from Admission Past Medical History: Unchanged from Admission Objective Active Medications: Acetaminophen (Tylenol Tab*) 650 mg PO Q4H PRN PRN Reason: PAIN - MILD Last Admin: 11/22/19 11:14 Dose: 650 mg Amlodipine Besylate (Norvasc Tab*) 5 mg PO DAILY [facility] Last Admin: 11/22/19 09:17 Dose: 5 mg Carbamazepine (Tegretol Tab(*)) 200 mg PO QID [facility] Last Admin: 11/22/19 09:17 Dose: 200 mg Clonidine HCl (Catapres Tab*) 0.1 mg PO BID [facility] Last Admin: 11/22/19 09:17 Dose: 0.1 mg Diphenhydramine HCl (Benadryl Iv*) 25 mg IV Q6H PRN PRN Reason: AGITATION Last Admin: 11/17/19 04:46 Dose: 25 mg Docusate Sodium (Colace Cap*) 100 mg PO BID [facility] Last Admin: 11/22/19 09:17 Dose: 100 mg Enoxaparin Sodium (Lovenox(*)) 40 mg SUBCUT DAILY@1200 [facility] Last Admin: 11/22/19 12:37 Dose: 40 mg Folic Acid (Folvite Tab*) 1 mg PO DAILY [facility] Last Admin: 11/22/19 09:17 Dose: 1 mg Hydralazine HCl (Apresoline Iv*) 5 mg IV SLOW PU Q6H PRN PRN Reason: Systolic Bp Greater Than: 170 Last Admin: 11/21/19 11:37 Dose: 5 mg Vancomycin HCl 1,250 mg/ (Sodium Chloride) 250 mls @ 166.667 mls/hr IVPB Q12H [facility] Last Admin: 11/22/19 00:56 Dose: 166.667 mls/hr Cefepime HCl (Maxipime 2 Gm In Dextrose Duplex (*)) 2 gm in 50 mls @ 100 mls/ hr IV Q12H [facility] Last Admin: 11/22/19 06:29 Dose: 100 mls/hr Morphine Sulfate (Morphine Inj (Syringe))*) 2 mg IV Q4H PRN PRN Reason: PAIN - SEVERE Last Admin: 11/22/19 07:35 Dose: 2 mg Multivitamins/Minerals (Theragran/Minerals Tab*) 1 tab PO DAILY [facility] Last Admin: 11/22/19 09:17 Dose: 1 tab Ondansetron HCl (Zofran Inj*) 4 mg IV Q4H PRN PRN Reason: NAUSEA Last Admin: 11/16/19 11:00 Dose: 4 mg Oxycodone HCl (Roxycodone Tab*) 5 mg PO Q4H PRN PRN Reason: PAIN - MILD Last Admin: 11/20/19 13:41 Dose: 5 mg Oxycodone HCl (Roxycodone Tab*) 10 mg PO Q4H PRN PRN Reason: PAIN - MODERATE Last Admin: 11/22/19 11:14 Dose: 10 mg Pharmacy Consult (Vancomycin Per Pharmacy*) 1 note FOLLOW UP .VANC PER PHARMACY [facility]; Protocol Polyethylene Glycol/Electrolytes (Miralax*) 17 gm PO DAILY PRN PRN Reason: CONSTIPATION Last Admin: 11/20/19 20:35 Dose: 17 gm Potassium Chloride (Klor Con Er Tab*) 40 meq PO BID [facility] Last Admin: 11/22/19 09:17 Dose: 40 meq Thiamine HCl (Vitamin B-1 Tab*) 100 mg PO DAILY [facility] Last Admin: 11/22/19 09:17 Dose: 100 mg Vital Signs - 8 hr 11/22/19 11/22/19 11/22/19 05:48 06:26 06:38 Temperature 98.3 F Pulse Rate 100 Respiratory 16 16 18 Rate Blood Pressure 164/89 (mmHg) O2 Sat by Pulse 99 Oximetry 11/22/19 11/22/19 11/22/19 07:35 07:53 08:00 Temperature 98.4 F Pulse Rate 101 Respiratory 20 16 20 Rate Blood Pressure 152/82 (mmHg) O2 Sat by Pulse 96 Oximetry 11/22/19 11/22/19 11/22/19 08:19 08:34 08:35 Temperature Pulse Rate 100 Respiratory 18 18 Rate Blood Pressure (mmHg) O2 Sat by Pulse Oximetry 11/22/19 11/22/19 11:10 11:14 Temperature 99.2 F Pulse Rate 103 Respiratory 16 20 Rate Blood Pressure 141/72 (mmHg) O2 Sat by Pulse 96 Oximetry Oxygen Devices in Use Now: None Appearance: Pleasant middle aged lady sitting up in bed in NAD Eyes: No Scleral Icterus Ears/Nose/Mouth/Throat: Mucous Membranes Moist Neck: Trachea Midline Respiratory: Symmetrical Chest Expansion and Respiratory Effort, Clear to Auscultation Cardiovascular: RRR - Normal S1 and S2 Abdominal: NL Sounds; No Tenderness; No Distention Extremities: - - LUE incision with CDI. Sensation intact, can move fingers, wrist, and elbows. Extensive ecchymosis extending from LUE to neck, chest, and back Neurological: Alert and Oriented x 3, NL Muscle Strength and Tone Result Diagrams: 11/22/19 06:21 11/22/19 06:21 Assess/Plan/Problems-Billing Assessment: Mrs Gonzalez is a 54yo F with PMH of ETOH abuse, seizure disorder, RA, who presented to ED after a fall, found to have left humerus fracture. Hospital stay complicated by ETOH withdrawal and UTI. - Patient Problems (1) Left humeral fracture Comment: - S/p ORIF 11/21/19. - Continue pain management. - PT/OT evaluation. - 48h of Vancomycin post op as per Ortho. (2) UTI (urinary tract infection) Comment: - Present on admission, not Law catheter related. - Klebsiella sensitive to cefepime. (3) Alcohol withdrawal delirium Comment: - Required Precedex drip early on admission, now resolved. - D/c [facility] protocol. - Patient not interested in inpatient or outpatient ETOH rehab at this time. (4) Acute on chronic anemia Comment: - Hb on admission around 9, dropped to 7, likley dilutional. Prior work up revealed WNL B12 and folate levels, and also had iron studies which did not reveal iron deficiency. - Chronic anemia and pancytopenia associated with bone marrow suppression in the setting of prison alcohol use. - Received 1 PRBC prior to surgery - H/H stable post op. (5) Hyponatremia Comment: - Associated to beer potomania - stable. (6) Seizure disorder Comment: - Continue Carbamazepine. (7) DVT prophylaxis Comment: SCD Status and Disposition: Inpatient. Anticipate d/c in AM.
[2019-11-22 13:04] LABS: EGFR African American 121.4 (>60); EGFR Non-African American 100.3 (>60)
[2019-11-22 13:05] LABS: Vancomycin Trough 16.8 mcg/mL
[2019-11-22] MEDS: Polyethylene Glycol 3350* 17 GM PACKET PO PRN (15:16)
[2019-11-23] MEDS: oxyCODONE TAB* 5 MG TAB PO PRN ×2 (03:21→11:14)
[2019-11-23] MEDS: Cefepime 2 GM in Dextrose(*) 2 GM/50 ML BAG IV SCH (05:49)
[2019-11-23] MEDS ORDERED: Vancomycin(*) 1,000 MG in NS 0.9% 250 ML* 250 ML IV SCH (06:00)
[2019-11-23 07:07] LABS: Mean Platelet Volume 7.2 fL (7.4-10.4); Platelet Count 233 10^3/uL (150-450)
[2019-11-23 07:11] LABS: Calcium 8.8 mg/dL (8.6-10.3); Magnesium 1.7 mg/dL (1.9-2.7); Potassium 4.8 mmol/L (3.5-5.0)
[2019-11-23 07:17] LABS: EGFR African American 155.6 (>60); EGFR Non-African American 128.6 (>60)
[2019-11-23] MEDS: amLODIPine TAB* 5 MG PO SCH (09:12)
[2019-11-23] MEDS: Docusate CAP* 100 MG PO SCH (09:12)
[2019-11-23] MEDS: Thiamine TAB* 100 MG TAB PO SCH (09:12)
[2019-11-23] MEDS: Multivitamins/Minerals TAB PO SCH (09:12)
[2019-11-23] MEDS: Folic Acid TAB* 1 MG PO SCH (09:12)
[2019-11-23] MEDS: carBAMazepine TAB(*) 200 MG PO SCH (09:13)
[2019-11-23] MEDS: cloNIDine TAB* 0.1 MG PO SCH (09:13)
[2019-11-23] MEDS: Potassium Chlor TAB* 20 MEQ TAB.ER PO SCH (09:13)
[2019-11-23] MEDS: Enoxaparin(*) 40 MG/0.4 ML SYR SUBCUT SCH (11:14)
--- NOTE | 2019-11-23 11:14 | PN ---
Progress Note - Progress Note Date of Service: 11/23/19 SOAP: Subjective: Pt seen and examined at bedside. She is feeling well and her LUE pain is controlled at rest. Denies feeling of fever, chills, CP, SOB, dizziness or nausea. Objective: []Gen: NAD, nontoxic appearing LUE: Surgical dressing with dry blood present. Dressing changed today. The incision is c/d/i without drainage or erythema. There is diffuse ecchymosis present throught the shoulder. Able to f/e at wrist and MCPs. Sensation intact over deltoid as well as distally. Radial pulse 2+, cap refill less than two seconds distally. Vital Signs Temp 99 F 11/23/19 08:10 Pulse 94 11/23/19 08:10 Resp 17 11/23/19 08:10 BP 125/68 11/23/19 08:10 Pulse Ox 95 11/23/19 08:10 Intake & Output 11/22/19 11/23/19 11/23/19 18:59 06:59 18:59 Intake Total 2825 1000 1100 Output Total 400 1400 700 Balance 2425 -400 400 Intake: IV Fluids 505 260 ABX - CEFEPIME 55 ABX - VANCOMYCIN 280 260 LR 170 Oral 2320 1000 840 Output: Urine 400 1400 700 Other: Estimated Void Large # Voids 1 Assessment: []L humerus surgical neck fracture POD 1 sp ORIF Plan: []NWB LUE, no ROM at the shoulder. Okay for elbow, wrist and digit ROM no need for DVT prophy outpt Dressing changed today Hospitalist to DC today.
[2019-11-23 11:38] VITALS: BP 119/66
--- NOTE | 2019-11-23 22:31 | DS ---
CC: Orlin Zacarias NP; Dr. Green DISCHARGE SUMMARY: DATE OF ADMISSION: 11/16/19 DATE OF DISCHARGE: 11/23/19 PRIMARY CARE PROVIDER: Orlin Zacarias NP ORTHOPEDIST: Dr. Green. DISCHARGE DIAGNOSES: 1. Left humerus fracture, status post open reduction internal fixation on 11/21/19. 2. Alcohol withdrawal. 3. Klebsiella urinary tract infection, present on admission, not Law catheter related. 4. Acute blood loss anemia or chronic anemia secondary to alcohol abuse. 5. Pancytopenia secondary to bone marrow suppression associated with alcohol. 6. Chronic hyponatremia, likely secondary to beer potomania. SECONDARY DIAGNOSES: 1. Alcohol abuse. 2. Epilepsy status post left temporal lobectomy in 1986, controlled with carbamazepine. 3. Left carpal tunnel release. 4. Rheumatoid arthritis. 5. Prior episode of sepsis secondary to Escherichia coli urinary tract infection. MEDICATION LIST: Carbamazepine 200 mg p.o. 4 times a day. New Medications: 1. Oxycodone 5 mg p.o. q.6 hours p.r.n. severe pain, maximum 4 tablets a day, dispensed 200 tablets, no refills. 2. Clonidine 0.1 mg p.o. b.i.d. 3. Amlodipine 5 mg p.o. daily. 4. Thiamine 100 mg p.o. daily. 5. MiraLAX 17 g p.o. daily as needed for constipation. 6. Multivitamin 1 tablet p.o. daily. 7. Folic acid 1 mg p.o. daily. 8. Acetaminophen 62 mg p.o. q.4 hours p.r.n. pain and fever. HOSPITAL COURSE: Ms. Gonzalez is a 54-year-old female with a past medical history stated above that presented to the emergency room after sustaining a fall. The patient woke up in the middle of night to go to the bathroom, slipped, fell, and landed on her left side. Workup in the emergency room incl uded a CT of the chest, abdomen, and pelvis that shows mild pleural effusion on the left, swelling an d hematoma in the region of the left shoulder, upper left lateral chest, and left axillary region. H umerus x-ray showed fracture of the surgical neck of the proximal left humerus. Shoulder x-ray showe d similar findings. The patient was admitted for further management as well as management of her alc ohol withdrawal. She was seen in consultation by orthopedics (Dr. Akbar) and her recommendation was for a surgical pro cedure when the patient was medically optimized. CT of the upper extremity showed comminuted displac ed angulated fracture of the surgical neck of the humerus. The humeral head is subluxed inferior rel ative to the glenoid fossa. The patient was placed on [facility] protocol and went through withdrawal while in the hospital. She also h ad a fever and was found to have Klebsiella pneumoniae urinary tract infection and she was treated wi th cefepime while in the hospital. Blood cultures yielded no growth and I believe her episodes of fe chuck, part of it was explained by her withdrawal as she did not have many urinary symptoms. The patie nt received a total of 7 days of antibiotics including Zosyn and cefepime and postop she also receive d vancomycin. The patient had progressive improvement of her symptoms and on 11/21/19 she was taken to the OR for O RIF with Dr. Green. The recommendation was for vancomycin for 48 hours after surgery and this was completed today. Regarding her alcohol abuse, the patient received medication. She has been to rehab multiple times a nd she is not interested in going to inpatient Rehab at this time. Her states that for the p ast 20 years he has been trying to support the patient through her addiction. 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 She received information about outpatient resources, but she states that she does not think it is going to be nec essary. The patient did well with physical therapy and she was felt to be stable for discharge. The plan is for her to follow up with Dr. Green next week. She already has an appointment to see her primary c are provider on 11/27/19 at 10:30 a.m. She received a work release until Dr. Green tells her that she can return to work. The patient knows that she is nonweightbearing on her left arm and that she needs to wear her immobilizer. The patient is medically stable for discharge today. PHYSICAL EXAMINATION: Vital Signs: Temperature 98.3, heart rate is 94, respiratory rate 17, oxygen saturation 95% on dangelo air, and blood pressure is 125/68. General: The patient is a middle-aged lady , sitting up in bed, in no acute distress. HEENT: Pupils are equal. Moist mucous membranes. CVS: S1 and S2. Regular rate and rhythm. Chest: Breath sounds present bilateral with no added sounds. Extremities: The patient has a surgical incision on the left shoulder with significant ecchymosis e xtending from her shoulder to chest, neck, and back. Neuro: She is alert and oriented x3, able to m ove all 4 extremities. DIET: Regular diet. ACTIVITY: As tolerated. DISPOSITION: To home. STATUS WHILE IN THE HOSPITAL: Inpatient. CONDITION AT THE TIME OF DISCHARGE: Fair. Please keep in mind this is a summarized report of this patient's hospital stay. If you need more inf ormation, please feel free to call me at [phone] or please obtain full medical records. Of note, the patient's blood pressure was elevated through her episodes of withdrawal. Therefore the recent amlodipine and clonidine were added, but if she is able to maintain sobriety I believe her bl ood pressure will trend down eventually, at least her clonidine may be discontinued. TIME SPENT: Approximately 50 minutes was spent to complete this discharge. [id number]/CPS #: [id number]
[2019-11-24] MEDS ORDERED: Vancomycin Trough Check NOTE FOLLOW UP ONE (05:30)
== END 2019-11-23 11:45 | disposition home health service (06) | DRG 315 ==
LOC: ED 16:41 → ICU 11-16 00:15 → MED 11-20 17:36 → SSU 11-21 21:56
PROVIDERS: ADMIT Internal Medicine; ATTEND Internal Medicine
PROC: 0LS40ZZ Reposition Left Upper Arm Tendon, Open Approach (ICD-10-PCS; 2019-11-21)
PROC: 30233N1 Transfusion of Nonautologous Red Blood Cells into Peripheral Vein, Percutaneous Approach (ICD-10-PCS; 2019-11-21)
PROC: 0PSG04Z Reposition Left Humeral Shaft with Internal Fixation Device, Open Approach (ICD-10-PCS; principal; 2019-11-21 14:45)
DX: S42.212A Unspecified displaced fracture of surgical neck of left humerus, initial encounter for closed fracture (principal); N39.0 Urinary tract infection, site not specified; D62 Acute posthemorrhagic anemia; D61.818 Other pancytopenia; E87.1 Hypo-osmolality and hyponatremia; F10.231 Alcohol dependence with withdrawal delirium; B96.1 Klebsiella pneumoniae [K. pneumoniae] as the cause of diseases classified elsewhere; G40.909 Epilepsy, unspecified, not intractable, without status epilepticus; M06.9 Rheumatoid arthritis, unspecified; D69.6 Thrombocytopenia, unspecified; E87.6 Hypokalemia; R00.0 Tachycardia, unspecified; W01.0XXA Fall on same level from slipping, tripping and stumbling without subsequent striking against object, initial encounter; F41.9 Anxiety disorder, unspecified; F32.9 Major depressive disorder, single episode, unspecified; Y92.002 Bathroom of unspecified non-institutional (private) residence as the place of occurrence of the external cause; Z28.21 Immunization not carried out because of patient refusal; Z88.8 Allergy status to other drugs, medicaments and biological substances
CPT/HCPCS: 36415; 70450; 71045; 71260; 74177; 76000; 80048; 80053; 80156; 80202; 80320; 81003; 81015; 82436; 82550; 82565; 82607; 82746; 83605; 83735; 83930; 83935; 84100; 84133; 84300; 84520; 85014; 85018; 85025; 85027; 85049; 85060; 85610; 86850; 86900; 86901; 86922; 87040; 87077; 87086; 87186; 87641; 90686; 93005; 96374; 96375; 96376; 99285; A9270-GY; C1713; C1776; G0480; J0360; J0610; J0692; J1200; J1650; J2060; J2250; J2270; J2405; J2543; J2704; J2795; J3010; J3370; J3411; J3475; J3480; J3490; J8540; P9040; Q9967

== ENCOUNTER 2021-04-21 14:22 | Inpatient (IN) ==
[2021-04-21] MEDS ORDERED: NS 0.9% 1000 ml BAG 1,000 ML IV ONE (14:37)
[2021-04-21 14:44] LABS: ABS Lymphocytes 0.2 10^3/ul (1.0-4.8); ABS Neutrophils 13.7 10^3/ul (1.5-7.7); Hematocrit 43 % (35-47); Hemoglobin 14.9 g/dL (12.0-16.0); Lymphocyte % 1.5 %; Mean Corpuscular HGB Conc 34 g/dL (31-36); Mean Corpuscular Hemoglobin 33 pg (27-31); Mean Corpuscular Volume 97 fL (80-97); Mean Platelet Volume 7.4 fL (7.4-10.4); Nucleated Red Blood Cells % 0.1; Platelet Count 207 10^3/uL (150-450); Red Blood Count 4.48 10^6 /uL (3.70-4.87); Red Cell Distribution Width 13 % (10-15)
[2021-04-21] MEDS ORDERED: LORazepam 2 mg VIAL 1 ml IV PUSH ONE ×2 (14:52→15:55)
[2021-04-21] MEDS ORDERED: Lorazepam PYXIS KEY PRN ×4 (14:52→19:55)
[2021-04-21] MEDS ORDERED: LORazepam 2 mg VIAL 1 ml ONE (14:53)
[2021-04-21 15:10] LABS: ALT 43 U/L (7-52); AST 141 U/L (13-39); Albumin 5.1 g/dL (3.2-5.2); Albumin/Globulin Ratio 1.5 (1-3); Alkaline Phosphatase 149 U/L (35-149); Anion Gap 13 mmol/L (2-11); Blood Urea Nitrogen 9 mg/dL (6-24); CO2 Carbon Dioxide 27 mmol/L (22-32); Chloride 91 mmol/L (101-111); EGFR African American 72.1 (>60); EGFR Non-African American 59.6 (>60); Globulin 3.4 g/dL (2-4); Glucose 157 mg/dL (70-100); Magnesium 2.2 mg/dL (1.9-2.7); Potassium 3.5 mmol/L (3.5-5.0); Sodium 131 mmol/L (135-145); Total Protein 8.5 g/dL (6.4-8.9); Troponin I 8.87 ng/mL (<0.03)
[2021-04-21 15:27] LABS: Alcohol, S < 10 mg/dL (<10); Salicylate < 2.50 mg/dL (<30)
[2021-04-21] MEDS ORDERED: Iodixanol (CONTRAST) 320 MG/ML 100 ML SDV IV ONE (15:33)
[2021-04-21 15:35] LABS: TSH Ultra Thyroid Stim Horm 1.67 mcIU/mL (0.34-5.60)
[2021-04-21] MEDS: Heparin DRIP 25,000 UNITS BAG 25,000 UNITS/500 ML BAG IV SCH (16:04)
[2021-04-21] MEDS: Heparin 5000 UNITS/ML 1 mL VIAL IV SCH (16:04)
[2021-04-21] MEDS ORDERED: Metoprolol Tartrate 5 mg VIAL 5 ml VIAL (1 mg/ml) ONE (16:17)
[2021-04-21] MEDS ORDERED: Metoprolol Tartrate 5 mg VIAL 5 ml VIAL (1 mg/ml) IV ONE (16:18)
[2021-04-21] MEDS ORDERED: Metoprolol Tartrate 5 mg VIAL 5 ml VIAL (1 mg/ml) IV PRN (16:28)
[2021-04-21] MEDS ORDERED: Heparin DRIP 25,000 UNITS BAG 25,000 UNITS/500 ML BAG IV SCH (16:30)
[2021-04-21 16:33] LABS: Activated Partial Thrombo Time 30.9 seconds (26.0-38.0); INR 0.98 (0.82-1.09)
[2021-04-21] MEDS ORDERED: LORazepam 2 mg VIAL 1 ml IV PUSH PRN (16:36)
[2021-04-21] MEDS ORDERED: Folic Acid 1 mg SYRINGE 0.2 ML SYRINGE IV SCH (17:00)
[2021-04-21] MEDS ORDERED: Heparin 5000 UNITS/ML 1 mL VIAL IV SCH (17:00)
[2021-04-21 17:13] LABS: C Reactive Protein 4.76 mg/L (<8.01)
[2021-04-21 17:17] LABS: ABS Lymphocytes 0.2 10^3/ul (1.0-4.8); ABS Monocytes 0.9 10^3/ul (0-0.8); ABS Neutrophils 11.9 10^3/ul (1.5-7.7); Hematocrit 40 % (35-47); Hemoglobin 13.7 g/dL (12.0-16.0); Lymphocyte % 1.8 %; Mean Corpuscular HGB Conc 35 g/dL (31-36); Mean Corpuscular Hemoglobin 34 pg (27-31); Mean Corpuscular Volume 97 fL (80-97); Mean Platelet Volume 7.7 fL (7.4-10.4); Platelet Count 178 10^3/uL (150-450); Red Blood Count 4.09 10^6 /uL (3.70-4.87); Red Cell Distribution Width 13 % (10-15); White Blood Count 13.1 10^3/uL (3.5-10.8)
[2021-04-21 18:11] LABS: C Reactive Protein 9.69 mg/L (<8.01); EGFR African American 92.8 (>60); EGFR Non-African American 76.7 (>60)
[2021-04-21 18:34] LABS: Troponin I 13.49 ng/mL (<0.03)
[2021-04-21 19:11] LABS: Erythrocyte Sed Rate 2 mm/Hr (0-29)
[2021-04-21 19:12] LABS: Erythrocyte Sed Rate 2 mm/Hr (0-29)
[2021-04-21 19:21] LABS: Creatine Kinase 444 U/L (10-223)
[2021-04-21] MEDS ORDERED: LORazepam 2 mg VIAL 1 ml IV PUSH SCH (20:00)
[2021-04-21 21:23] LABS: Urine Appearance Turbid; Urine Bilirubin Negative (Negative); Urine Blood 3+ (Negative); Urine Color Yellow; Urine Glucose Negative (Negative); Urine Ketones Trace (Negative); Urine Nitrite Negative (Negative); Urine Protein 3+(>=500 mg/dL) (Negative); Urine Specific Gravity 1.042 (1.002-1.030); Urine Urobilinogen Negative (Negative)
[2021-04-21 21:43] LABS: Urine Bacteria Absent (Absent); Urine Red Blood Cell 1+(3-5/hpf) (Absent); Urine White Blood Cell 3+(>20/hpf) (Absent)
[2021-04-21 21:44] LABS: Urine Benzodiazepine Screen None Detected (None Detect); Urine Cannabinoids Screen None Detected (None Detect); Urine Opiates Screen None Detected (None Detect)
[2021-04-21] MEDS: Thiamine 100 MG/ML 2 ml VIAL 500 MG in NS 0.9% 250 ml 250 ML IV SCH (22:13)
[2021-04-21] MEDS: LORazepam 2 mg VIAL 1 ml IV PUSH PRN (22:23)
[2021-04-21 22:28] LABS: Troponin I 15.29 ng/mL (<0.03)
[2021-04-22 01:35] LABS: Troponin I 14.91 ng/mL (<0.03)
[2021-04-22] MEDS: LORazepam 2 mg VIAL 1 ml IV PUSH PRN ×6 (01:48→23:00)
[2021-04-22 04:47] LABS: ABS Lymphocytes 0.5 10^3/ul (1.0-4.8); ABS Neutrophils 7.7 10^3/ul (1.5-7.7); Hematocrit 39 % (35-47); Hemoglobin 13.8 g/dL (12.0-16.0); Lymphocyte % 5.4 %; Mean Corpuscular HGB Conc 35 g/dL (31-36); Mean Corpuscular Hemoglobin 34 pg (27-31); Mean Corpuscular Volume 96 fL (80-97); Mean Platelet Volume 7.9 fL (7.4-10.4); Platelet Count 134 10^3/uL (150-450); Red Blood Count 4.07 10^6 /uL (3.70-4.87); Red Cell Distribution Width 13 % (10-15); White Blood Count 9.3 10^3/uL (3.5-10.8)
[2021-04-22 05:08] LABS: ALT 34 U/L (7-52); AST 122 U/L (13-39); Albumin 4.6 g/dL (3.2-5.2); Albumin/Globulin Ratio 1.5 (1-3); Alkaline Phosphatase 109 U/L (35-149); Anion Gap 11 mmol/L (2-11); Blood Urea Nitrogen 11 mg/dL (6-24); C Reactive Protein 57.72 mg/L (<8.01); CO2 Carbon Dioxide 23 mmol/L (22-32); Calcium 9.1 mg/dL (8.6-10.3); Chloride 98 mmol/L (101-111); EGFR African American 88.8 (>60); EGFR Non-African American 73.4 (>60); Glucose 143 mg/dL (70-100); Indirect Bilirubin 0.9 mg/dL (0.3-1.0); Magnesium 2.5 mg/dL (1.9-2.7); Potassium 3.1 mmol/L (3.5-5.0); Sodium 132 mmol/L (135-145); Total Protein 7.6 g/dL (6.4-8.9)
[2021-04-22 05:14] LABS: Troponin I 14.09 ng/mL (<0.03)
[2021-04-22] MEDS: Thiamine 100 MG/ML 2 ml VIAL 500 MG in NS 0.9% 250 ml 250 ML IV SCH ×3 (05:44→23:00)
[2021-04-22] MEDS: KCL 10 MEQ/50 ML IVPREMIX 10 MEQ/50 ML BAG IV SCH ×3 (05:48→09:39)
[2021-04-22] MEDS: Potassium Chlor 20 meq TAB.ER PO ONE ×2 (07:42→08:14)
[2021-04-22] MEDS ORDERED: Vancomycin per Pharmacy 1 EA NOTE FOLLOW UP PRN (08:47)
[2021-04-22] MEDS ORDERED: Vancomycin 1,250 MG in NS 0.9% 250 ml 250 ML IVPB ONE (09:00)
[2021-04-22] MEDS: cefTRIAXone 2 GM ADDV.VIAL 2 GM in NS 0.9% 100 ml BAG 100 ML IV SCH ×2 (09:37→20:05)
[2021-04-22] MEDS ORDERED: Perflutren Lipid Microsphere 3 ML VIAL ONE (09:45)
[2021-04-22] MEDS ORDERED: Folic Acid 1 mg SYRINGE 0.2 ML SYRINGE IM SCH (10:00)
[2021-04-22 10:46] LABS: Creatine Kinase 696 U/L (10-223)
[2021-04-22 10:47] LABS: CKMB ng/mL 41.7 ng/mL (0.6-6.3)
[2021-04-22] MEDS: Folic Acid IV 1 MG in NS 0.9% 50 ML 50 ML IVPB SCH (12:19)
[2021-04-22] MEDS: Heparin 5000 UNITS/ML 1 mL VIAL IV SCH (13:21)
[2021-04-22] MEDS ORDERED: Potassium Chlor 20 meq TAB.ER PO ONE (13:50)
[2021-04-22] MEDS: KCL 20 MEQ/100 ML IVPREMIX 20 MEQ/100 ML BAG IV SCH ×3 (14:23→20:05)
[2021-04-22] MEDS ORDERED: Potassium Chloride LIQUID 20 MEQ/15 ML LIQUID PO ONE (14:30)
[2021-04-22] MEDS: Senna TAB 8.6 mg TAB PO SCH ×2 (14:30→20:05)
[2021-04-22 17:48] LABS: Albumin 4.2 g/dL (3.2-5.2); Albumin/Globulin Ratio 1.5 (1-3); Globulin 2.8 g/dL (2-4); Indirect Bilirubin 0.6 mg/dL (0.3-1.0); Total Bilirubin 0.9 mg/dL (0.2-1.0)
[2021-04-22] MEDS: Vancomycin 1000 MG in NS 0.9% 250 ML IVPB SCH (20:58)
[2021-04-22] MEDS ORDERED: LORazepam 2 mg VIAL 1 ml IV PUSH PRN (22:42)
[2021-04-22] MEDS ORDERED: LORazepam 2 mg VIAL 1 ml IV PUSH ONE (22:45)
[2021-04-22] MEDS ORDERED: Ondansetron 4 mg VIAL 2 MG/ML 2 ml VIAL IV PRN (22:47)
[2021-04-23] MEDS: LORazepam 2 mg VIAL 1 ml IV PUSH PRN ×4 (00:18→06:39)
[2021-04-23] MEDS: Heparin DRIP 25,000 UNITS BAG 25,000 UNITS/500 ML BAG IV SCH (02:09)
[2021-04-23] MEDS: Heparin 5000 UNITS/ML 1 mL VIAL IV SCH (03:03)
[2021-04-23] MEDS ORDERED: Furosemide 20 mg/2 ml IV VIAL IV ONE (03:59)
[2021-04-23] MEDS: Thiamine 100 MG/ML 2 ml VIAL 500 MG in NS 0.9% 250 ml 250 ML IV SCH ×3 (05:26→23:00)
[2021-04-23 06:30] LABS: ABS Lymphocytes 0.4 10^3/ul (1.0-4.8); ABS Monocytes 0.7 10^3/ul (0-0.8); ABS Neutrophils 9.4 10^3/ul (1.5-7.7); Hematocrit 38 % (35-47); Mean Corpuscular HGB Conc 35 g/dL (31-36); Mean Corpuscular Hemoglobin 35 pg (27-31); Mean Corpuscular Volume 100 fL (80-97); Mean Platelet Volume 8.5 fL (7.4-10.4); Platelet Count 104 10^3/uL (150-450); Red Blood Count 3.78 10^6 /uL (3.70-4.87); Red Cell Distribution Width 13 % (10-15); White Blood Count 10.6 10^3/uL (3.5-10.8)
[2021-04-23 06:48] LABS: ALT 36 U/L (7-52); AST 117 U/L (13-39); Albumin/Globulin Ratio 1.3 (1-3); Alkaline Phosphatase 86 U/L (35-149); Anion Gap 9 mmol/L (2-11); Blood Urea Nitrogen 18 mg/dL (6-24); CO2 Carbon Dioxide 21 mmol/L (22-32); Calcium 8.8 mg/dL (8.6-10.3); Chloride 104 mmol/L (101-111); EGFR Non-African American 69.4 (>60); Glucose 130 mg/dL (70-100); Indirect Bilirubin 0.4 mg/dL (0.3-1.0); Magnesium 1.8 mg/dL (1.9-2.7); Potassium 3.1 mmol/L (3.5-5.0); Sodium 134 mmol/L (135-145)
[2021-04-23] MEDS ORDERED: Magnesium Sulfate IV 3 GM in NS 0.9% 100 ml BAG 100 ML IVPB ONE (08:00)
[2021-04-23] MEDS: cefTRIAXone 2 GM ADDV.VIAL 2 GM in NS 0.9% 100 ml BAG 100 ML IV SCH ×2 (09:30→20:43)
[2021-04-23 09:42] LABS: Troponin I 6.08 ng/mL (<0.03)
[2021-04-23] MEDS: Senna TAB 8.6 mg TAB PO SCH ×3 (09:43→20:44)
[2021-04-23] MEDS: Vancomycin 1000 MG in NS 0.9% 250 ML IVPB SCH (10:21)
[2021-04-23 10:27] LABS: Activated Partial Thrombo Time 43.2 seconds (26.0-38.0)
[2021-04-23] MEDS: KCL 20 MEQ/100 ML IVPREMIX 20 MEQ/100 ML BAG IV SCH ×3 (10:33→15:19)
[2021-04-23 10:52] LABS: INR 0.99 (0.82-1.09)
[2021-04-23] MEDS: DOXYcycline 100 MG in NS 0.9% 250 ml 250 ML IVPB SCH ×2 (12:30→23:00)
[2021-04-23] MEDS: Folic Acid IV 1 MG in NS 0.9% 50 ML 50 ML IVPB SCH (12:31)
[2021-04-23 16:51] LABS: Adenovirus Undetected (Undetected); Bordetella parapertussis Undetected (Undetected); Bordetella pertussis Undetected (Undetected); Chlamydophila pneumoniae Undetected (Undetected); Coronavirus 229E Undetected (Undetected); Coronavirus HKU1 Undetected (Undetected); Coronavirus NL63 Undetected (Undetected); Coronavirus OC43 Undetected (Undetected); Human Metapneumovirus Undetected (Undetected); Human Rhinovirus/Enterovirus Undetected (Undetected); Influenza A Undetected (Undetected); Influenza B Undetected (Undetected); Mycoplasmoides pneumoniae Undetected (Undetected); Parainfluenza Virus 1 Undetected (Undetected); Parainfluenza Virus 2 Undetected (Undetected); Parainfluenza Virus 3 Undetected (Undetected); Parainfluenza Virus 4 Undetected (Undetected); Respiratory Syncytial Virus Undetected (Undetected); Specimen Source NASOPHARYNGEAL SWAB
[2021-04-23] MEDS: hydrALAZINE 20 mg/ml 1 ML Vial IV IV SLOW PU ONE ×2 (20:35→20:44)
[2021-04-23] MEDS ORDERED: NS 0.9% 100 ml BAG 100 ML ONE (20:37)
[2021-04-23] MEDS ORDERED: NS 0.9% 250 ml 250 ML ONE ×2 (20:37→21:56)
[2021-04-24] MEDS: LORazepam 2 mg VIAL 1 ml IV PUSH PRN ×6 (00:22→22:43)
[2021-04-24 04:50] LABS: ABS Lymphocytes 0.5 10^3/ul (1.0-4.8); ABS Monocytes 0.8 10^3/ul (0-0.8); ABS Neutrophils 6.6 10^3/ul (1.5-7.7); Eosinophil % 0.2 %; Hematocrit 38 % (35-47); Hemoglobin 12.7 g/dL (12.0-16.0); Lymphocyte % 5.8 %; Mean Corpuscular HGB Conc 34 g/dL (31-36); Mean Corpuscular Hemoglobin 34 pg (27-31); Mean Corpuscular Volume 100 fL (80-97); Mean Platelet Volume 9.1 fL (7.4-10.4); Platelet Count 112 10^3/uL (150-450); Red Blood Count 3.77 10^6 /uL (3.70-4.87); Red Cell Distribution Width 13 % (10-15); White Blood Count 7.9 10^3/uL (3.5-10.8)
[2021-04-24 05:07] LABS: Calcium 8.9 mg/dL (8.6-10.3); EGFR African American 79.7 (>60); EGFR Non-African American 65.8 (>60); Potassium 3.3 mmol/L (3.5-5.0)
[2021-04-24] MEDS ORDERED: Potassium Chlor 20 meq TAB.ER PO ONE ×5 (05:52→20:00)
[2021-04-24] MEDS ORDERED: NS 0.9% 250 ml 250 ML ONE (06:23)
[2021-04-24] MEDS: Thiamine 100 MG/ML 2 ml VIAL 500 MG in NS 0.9% 250 ml 250 ML IV SCH ×2 (06:27→14:44)
[2021-04-24] MEDS ORDERED: Vancomycin Trough Check NOTE FOLLOW UP ONE (08:30)
[2021-04-24] MEDS: cefTRIAXone 1 gm/50 mL NS BAG 1 GM/50 ML BAG IVPB SCH (08:31)
[2021-04-24] MEDS ORDERED: Metoprolol Tartrate 5 mg VIAL 5 ml VIAL (1 mg/ml) IV ONE (08:34)
[2021-04-24] MEDS ORDERED: Metoprolol Tartrate 5 mg VIAL 5 ml VIAL (1 mg/ml) ONE ×2 (08:38→17:51)
[2021-04-24] MEDS ORDERED: Furosemide 20 mg/2 ml IV VIAL IV SLOW PU ONE ×2 (08:53)
[2021-04-24] MEDS ORDERED: Pantoprazole VIAL 40 MG VIAL IV SCH (10:00)
[2021-04-24] MEDS: Senna TAB 8.6 mg TAB PO SCH ×2 (10:06→20:45)
[2021-04-24] MEDS: Folic Acid IV 1 MG in NS 0.9% 50 ML 50 ML IVPB SCH (10:49)
[2021-04-24 11:35] LABS: Hematocrit 40 % (35-47); Hemoglobin 13.5 g/dL (12.0-16.0); Mean Corpuscular HGB Conc 34 g/dL (31-36); Mean Corpuscular Hemoglobin 33 pg (27-31); Mean Corpuscular Volume 99 fL (80-97); Mean Platelet Volume 8.8 fL (7.4-10.4); Platelet Count 129 10^3/uL (150-450); Red Blood Count 4.05 10^6 /uL (3.70-4.87); Red Cell Distribution Width 13 % (10-15); White Blood Count 7.8 10^3/uL (3.5-10.8)
[2021-04-24] MEDS: hydrALAZINE 20 mg/ml 1 ML Vial IV IV SLOW PU PRN ×2 (11:45→17:21)
[2021-04-24 11:56] LABS: Calcium 9.1 mg/dL (8.6-10.3); EGFR African American 86.4 (>60); EGFR Non-African American 71.4 (>60)
[2021-04-24] MEDS: KCL 20 MEQ/100 ML IVPREMIX 20 MEQ/100 ML BAG IV SCH ×2 (14:44→21:21)
[2021-04-24] MEDS ORDERED: Midazolam 10 mg/10 ml VIAL 1 mg/ml 10 ml VIAL (10 mg) ONE (15:02)
[2021-04-24] MEDS ORDERED: fentaNYL 100 mcg/2 ml 50 MCG/ML VIAL ONE (15:02)
[2021-04-24] MEDS ORDERED: Pantoprazole VIAL 40 MG VIAL IV ONE (16:19)
[2021-04-24] MEDS: Pantoprazole 80 mg in NS BAG 80 MG/250 ML BAG IV SCH (18:35)
[2021-04-24 20:01] LABS: Activated Partial Thrombo Time 28.8 seconds (26.0-38.0); INR 1.02 (0.82-1.09)
[2021-04-24 20:11] LABS: EGFR African American 79.7 (>60); EGFR Non-African American 65.8 (>60)
[2021-04-24] MEDS: Heparin 5000 UNITS/ML 1 mL VIAL SUBCUT SCH (20:40)
[2021-04-24] MEDS ORDERED: KCL 20 MEQ/100 ML IVPREMIX 20 MEQ/100 ML BAG ONE (21:20)
[2021-04-25] MEDS: LORazepam 2 mg VIAL 1 ml IV PUSH PRN ×6 (00:33→21:34)
[2021-04-25 05:21] LABS: ABS Eosinophils 0.2 10^3/ul (0-0.6); ABS Lymphocytes 0.5 10^3/ul (1.0-4.8); ABS Monocytes 0.9 10^3/ul (0-0.8); ABS Neutrophils 4.6 10^3/ul (1.5-7.7); Hematocrit 39 % (35-47); Hemoglobin 13.3 g/dL (12.0-16.0); Lymphocyte % 7.8 %; Mean Corpuscular HGB Conc 34 g/dL (31-36); Mean Corpuscular Hemoglobin 34 pg (27-31); Mean Corpuscular Volume 99 fL (80-97); Mean Platelet Volume 8.4 fL (7.4-10.4); Platelet Count 138 10^3/uL (150-450); Red Blood Count 3.92 10^6 /uL (3.70-4.87); Red Cell Distribution Width 13 % (10-15); White Blood Count 6.2 10^3/uL (3.5-10.8)
[2021-04-25] MEDS: Pantoprazole 80 mg in NS BAG 80 MG/250 ML BAG IV SCH ×3 (05:28→22:38)
[2021-04-25] MEDS: Heparin 5000 UNITS/ML 1 mL VIAL SUBCUT SCH ×3 (05:36→20:16)
[2021-04-25 05:52] LABS: EGFR African American 88.8 (>60); EGFR Non-African American 73.4 (>60); Magnesium 1.6 mg/dL (1.9-2.7)
[2021-04-25] MEDS ORDERED: Potassium Chlor 20 meq TAB.ER PO ONE (08:21)
[2021-04-25] MEDS: hydrALAZINE 20 mg/ml 1 ML Vial IV IV SLOW PU PRN (08:47)
[2021-04-25] MEDS: Senna TAB 8.6 mg TAB PO SCH ×2 (08:47→20:30)
[2021-04-25] MEDS: Magnesium Sulfate IV 3 GM in NS 0.9% 100 ml BAG 100 ML IVPB ONE ×2 (10:16→11:18)
[2021-04-25] MEDS: cefTRIAXone 1 gm/50 mL NS BAG 1 GM/50 ML BAG IVPB SCH (10:32)
[2021-04-25] MEDS: Folic Acid IV 1 MG in NS 0.9% 50 ML 50 ML IVPB SCH (15:10)
[2021-04-25] MEDS: Thiamine 100 MG/ML 2 ml VIAL 250 MG in NS 0.9% 100 ml BAG 100 ML IV SCH (15:10)
[2021-04-25] MEDS: KCL 10 MEQ/50 ML IVPREMIX 10 MEQ/50 ML BAG IV SCH ×2 (16:58→20:20)
[2021-04-25] MEDS ORDERED: KCL 10 MEQ/50 ML IVPREMIX 10 MEQ/50 ML BAG ONE (20:10)
[2021-04-26 05:47] LABS: ABS Eosinophils 0.3 10^3/ul (0-0.6); ABS Lymphocytes 0.5 10^3/ul (1.0-4.8); ABS Monocytes 0.9 10^3/ul (0-0.8); ABS Neutrophils 4.1 10^3/ul (1.5-7.7); Eosinophil % 4.7 %; Hematocrit 37 % (35-47); Hemoglobin 12.8 g/dL (12.0-16.0); Lymphocyte % 9.1 %; Mean Corpuscular HGB Conc 35 g/dL (31-36); Mean Corpuscular Hemoglobin 34 pg (27-31); Mean Corpuscular Volume 98 fL (80-97); Mean Platelet Volume 8.9 fL (7.4-10.4); Platelet Count 149 10^3/uL (150-450); Red Blood Count 3.78 10^6 /uL (3.70-4.87); Red Cell Distribution Width 14 % (10-15); White Blood Count 5.8 10^3/uL (3.5-10.8)
[2021-04-26] MEDS: Heparin 5000 UNITS/ML 1 mL VIAL SUBCUT SCH ×2 (05:55→13:03)
[2021-04-26 06:02] LABS: Calcium 8.6 mg/dL (8.6-10.3); EGFR African American 95.6 (>60); Magnesium 1.8 mg/dL (1.9-2.7); Potassium 3.5 mmol/L (3.5-5.0)
[2021-04-26] MEDS: LORazepam 2 mg VIAL 1 ml IV PUSH PRN (06:07)
[2021-04-26] MEDS ORDERED: Magnesium Sulfate IV 3 GM in NS 0.9% 100 ml BAG 100 ML IVPB ONE (08:00)
[2021-04-26] MEDS ORDERED: Potassium Chloride LIQUID 20 MEQ/15 ML LIQUID PO ONE (08:02)
[2021-04-26] MEDS: cefTRIAXone 1 gm/50 mL NS BAG 1 GM/50 ML BAG IVPB SCH (08:56)
[2021-04-26] MEDS: Thiamine 100 MG/ML 2 ml VIAL 250 MG in NS 0.9% 100 ml BAG 100 ML IV SCH (09:05)
[2021-04-26] MEDS: Senna TAB 8.6 mg TAB PO SCH ×2 (09:10→21:13)
[2021-04-26] MEDS: Folic Acid IV 1 MG in NS 0.9% 50 ML 50 ML IVPB SCH (09:36)
[2021-04-26] MEDS: Pantoprazole 80 mg in NS BAG 80 MG/250 ML BAG IV SCH (12:57)
[2021-04-26] MEDS ORDERED: Heparin 5000 UNITS/ML 1 mL VIAL IV SCH (20:00)
[2021-04-26 20:05] LABS: ABS Eosinophils 0.2 10^3/ul (0-0.6); ABS Lymphocytes 0.4 10^3/ul (1.0-4.8); ABS Monocytes 0.8 10^3/ul (0-0.8); ABS Neutrophils 3.8 10^3/ul (1.5-7.7); Eosinophil % 3.9 %; Hematocrit 34 % (35-47); Hemoglobin 11.5 g/dL (12.0-16.0); Lymphocyte % 8.4 %; Mean Corpuscular HGB Conc 34 g/dL (31-36); Mean Corpuscular Hemoglobin 34 pg (27-31); Mean Corpuscular Volume 99 fL (80-97); Mean Platelet Volume 8.8 fL (7.4-10.4); Platelet Count 143 10^3/uL (150-450); Red Blood Count 3.38 10^6 /uL (3.70-4.87); Red Cell Distribution Width 13 % (10-15); White Blood Count 5.2 10^3/uL (3.5-10.8)
[2021-04-26 20:20] LABS: EGFR African American 88.8 (>60); EGFR Non-African American 73.4 (>60)
[2021-04-27] MEDS ORDERED: Heparin DRIP 25,000 UNITS BAG 25,000 UNITS/500 ML BAG IV SCH
[2021-04-27] MEDS: Pantoprazole 80 mg in NS BAG 80 MG/250 ML BAG IV SCH (00:08)
[2021-04-27 05:00] LABS: ABS Eosinophils 0.2 10^3/ul (0-0.6); ABS Lymphocytes 0.5 10^3/ul (1.0-4.8); ABS Monocytes 0.8 10^3/ul (0-0.8); ABS Neutrophils 3.4 10^3/ul (1.5-7.7); Eosinophil % 4.5 %; Hematocrit 34 % (35-47); Hemoglobin 11.2 g/dL (12.0-16.0); Lymphocyte % 10.5 %; Mean Corpuscular HGB Conc 33 g/dL (31-36); Mean Corpuscular Hemoglobin 33 pg (27-31); Mean Corpuscular Volume 100 fL (80-97); Mean Platelet Volume 8.5 fL (7.4-10.4); Nucleated Red Blood Cells % 0.1; Platelet Count 138 10^3/uL (150-450); Red Blood Count 3.34 10^6 /uL (3.70-4.87); Red Cell Distribution Width 13 % (10-15); White Blood Count 4.9 10^3/uL (3.5-10.8)
[2021-04-27 05:41] LABS: Calcium 8.3 mg/dL (8.6-10.3); EGFR African American 97.1 (>60); EGFR Non-African American 80.2 (>60); Magnesium 1.8 mg/dL (1.9-2.7); Potassium 3.7 mmol/L (3.5-5.0)
[2021-04-27] MEDS: Pantoprazole VIAL 40 MG VIAL IV SCH ×2 (05:53→21:28)
[2021-04-27] MEDS: Senna TAB 8.6 mg TAB PO SCH ×2 (09:13→21:23)
[2021-04-27] MEDS: Thiamine 100 MG/ML 2 ml VIAL 250 MG in NS 0.9% 100 ml BAG 100 ML IV SCH (09:17)
[2021-04-27] MEDS ORDERED: diPHENhydraMINE 25 mg TAB PO PRN (10:05)
[2021-04-27] MEDS: cefTRIAXone 1 gm/50 mL NS BAG 1 GM/50 ML BAG IVPB SCH (10:23)
[2021-04-27] MEDS: NS 0.9% 1000 ml BAG 1,000 ML IV SCH ×2 (12:50→21:39)
[2021-04-27] MEDS: Folic Acid IV 1 MG in NS 0.9% 50 ML 50 ML IVPB SCH (13:15)
[2021-04-27] MEDS ORDERED: fentaNYL 100 mcg/2 ml 50 MCG/ML VIAL ONE (14:08)
[2021-04-27] MEDS ORDERED: Lidocaine 1% VIAL 10 MG/ML VIAL ONE (14:08)
[2021-04-27] MEDS ORDERED: VERAPAMIL 2.5 MG/ML 2 ML VIAL ** 5 mg/2 ml ONE (14:08)
[2021-04-27] MEDS ORDERED: Heparin 2 UNITS/ML 1000 mls 2,000 ML IV ONE (14:08)
[2021-04-27] MEDS ORDERED: Midazolam 5 mg/5 ml VIAL 1 mg/ml 5 ml VIAL (5 mg) ONE (14:08)
[2021-04-27] MEDS ORDERED: nitroGLYCERIN DRIP 25,000 MCG/250 ML BTL ONE (14:08)
[2021-04-27] MEDS ORDERED: Heparin 1,000 UNIT/ML 10 ml (10,000 UNITS) CATHLAB/DIALYSIS ONE (14:08)
[2021-04-27] MEDS ORDERED: Iohexol 350 (CONTRAST) 200 ML MDV IV ONE (14:09)
[2021-04-27] MEDS: Heparin 5000 UNITS/ML 1 mL VIAL SUBCUT SCH (21:28)
[2021-04-27 23:57] LABS: Anaplasma phagocytophilium <1:64 titer (<1:64); Ehrlichia chaffeensis IgG AB <1:64 titer (<1:64); Lyme Disease Serology Negative (Negative)
[2021-04-28] MEDS: Heparin 5000 UNITS/ML 1 mL VIAL SUBCUT SCH ×3 (05:03→20:52)
[2021-04-28 06:33] LABS: ABS Eosinophils 0.1 10^3/ul (0-0.6); ABS Lymphocytes 0.5 10^3/ul (1.0-4.8); ABS Monocytes 0.7 10^3/ul (0-0.8); ABS Neutrophils 2.4 10^3/ul (1.5-7.7); Eosinophil % 3.7 %; Hematocrit 32 % (35-47); Hemoglobin 10.7 g/dL (12.0-16.0); Mean Corpuscular HGB Conc 34 g/dL (31-36); Mean Corpuscular Hemoglobin 33 pg (27-31); Mean Corpuscular Volume 100 fL (80-97); Mean Platelet Volume 9.2 fL (7.4-10.4); Platelet Count 125 10^3/uL (150-450); Red Blood Count 3.22 10^6 /uL (3.70-4.87); Red Cell Distribution Width 13 % (10-15); White Blood Count 3.7 10^3/uL (3.5-10.8)
[2021-04-28 06:53] LABS: Calcium 8.6 mg/dL (8.6-10.3); EGFR African American 101.8 (>60); EGFR Non-African American 84.1 (>60); Magnesium 1.7 mg/dL (1.9-2.7); Potassium 3.7 mmol/L (3.5-5.0)
[2021-04-28] MEDS ORDERED: Magnesium Sulfate IV 3 GM in NS 0.9% 100 ml BAG 100 ML IVPB ONE (08:30)
[2021-04-28] MEDS: Senna TAB 8.6 mg TAB PO SCH ×2 (08:49→23:39)
[2021-04-28] MEDS: Pantoprazole VIAL 40 MG VIAL IV SCH ×2 (08:51→20:52)
[2021-04-28] MEDS ORDERED: Perflutren Lipid Microsphere 3 ML VIAL ONE (09:06)
[2021-04-28] MEDS: Thiamine 100 MG/ML 2 ml VIAL 250 MG in NS 0.9% 100 ml BAG 100 ML IV SCH (09:37)
[2021-04-28 10:46] LABS: HDL Cholesterol 67.3 mg/dL
[2021-04-28] MEDS: Folic Acid IV 1 MG in NS 0.9% 50 ML 50 ML IVPB SCH (13:25)
[2021-04-28] MEDS ORDERED: PEG 3000 GI LAVAGE 1 GALLON PO ONE (17:07)
[2021-04-28] MEDS: PEG 3000 GI LAVAGE 1 GALLON PO ONE ×2 (20:08→23:40)
[2021-04-28 23:49] LABS: Hematocrit 30 % (35-47); Hemoglobin 10.1 g/dL (12.0-16.0)
[2021-04-29] MEDS: Heparin 5000 UNITS/ML 1 mL VIAL SUBCUT SCH ×3 (04:01→20:28)
[2021-04-29 09:19] LABS: ABS Eosinophils 0.1 10^3/ul (0-0.6); ABS Lymphocytes 0.6 10^3/ul (1.0-4.8); ABS Monocytes 0.6 10^3/ul (0-0.8); ABS Neutrophils 2.7 10^3/ul (1.5-7.7); Eosinophil % 3.1 %; Hematocrit 32 % (35-47); Hemoglobin 10.6 g/dL (12.0-16.0); Lymphocyte % 14.1 %; Mean Corpuscular HGB Conc 33 g/dL (31-36); Mean Corpuscular Hemoglobin 33 pg (27-31); Mean Corpuscular Volume 100 fL (80-97); Mean Platelet Volume 8.9 fL (7.4-10.4); Platelet Count 157 10^3/uL (150-450); Red Blood Count 3.16 10^6 /uL (3.70-4.87); Red Cell Distribution Width 13 % (10-15); White Blood Count 3.9 10^3/uL (3.5-10.8)
[2021-04-29 09:42] LABS: EGFR African American 94.2 (>60); EGFR Non-African American 77.8 (>60); Magnesium 1.8 mg/dL (1.9-2.7); Potassium 3.9 mmol/L (3.5-5.0)
[2021-04-29] MEDS: Thiamine 100 MG/ML 2 ml VIAL 250 MG in NS 0.9% 100 ml BAG 100 ML IV SCH (10:51)
[2021-04-29] MEDS: Folic Acid IV 1 MG in NS 0.9% 50 ML 50 ML IVPB SCH (11:30)
[2021-04-29] MEDS: Pantoprazole VIAL 40 MG VIAL IV SCH ×2 (12:47→21:04)
[2021-04-29] MEDS: Senna TAB 8.6 mg TAB PO SCH ×2 (12:53→19:27)
[2021-04-29] MEDS ORDERED: Midazolam 10 mg/10 ml VIAL 1 mg/ml 10 ml VIAL (10 mg) ONE (15:50)
[2021-04-29] MEDS ORDERED: fentaNYL 100 mcg/2 ml 50 MCG/ML VIAL ONE (15:51)
[2021-04-29] MEDS ORDERED: Magnesium Sulfate 2 gm BAG 2 GM/50 ML BAG IVPB ONE (16:00)
[2021-04-29 16:31] LABS: Helicobacter pylori Result Not Detected; Specimen Source STOOL
[2021-04-30] MEDS: Heparin 5000 UNITS/ML 1 mL VIAL SUBCUT SCH ×2 (05:48→14:47)
[2021-04-30 07:26] LABS: ABS Eosinophils 0.1 10^3/ul (0-0.6); ABS Lymphocytes 0.7 10^3/ul (1.0-4.8); ABS Monocytes 0.5 10^3/ul (0-0.8); ABS Neutrophils 2.1 10^3/ul (1.5-7.7); Hematocrit 29 % (35-47); Hemoglobin 9.8 g/dL (12.0-16.0); Lymphocyte % 19.8 %; Mean Corpuscular HGB Conc 34 g/dL (31-36); Mean Corpuscular Hemoglobin 34 pg (27-31); Mean Corpuscular Volume 99 fL (80-97); Mean Platelet Volume 9.3 fL (7.4-10.4); Nucleated Red Blood Cells % 0.1; Platelet Count 150 10^3/uL (150-450); Red Cell Distribution Width 13 % (10-15); White Blood Count 3.4 10^3/uL (3.5-10.8)
[2021-04-30 07:42] LABS: Calcium 8.6 mg/dL (8.6-10.3); EGFR African American 103.4 (>60); EGFR Non-African American 85.5 (>60); Magnesium 1.9 mg/dL (1.9-2.7); Phosphorus 3.9 mg/dL (2.5-5.0); Potassium 3.7 mmol/L (3.5-5.0)
[2021-04-30] MEDS ORDERED: Psyllium PAK PO PRN (07:54)
[2021-04-30] MEDS ORDERED: Magnesium Sulfate IV 1GM/100ML 1 GM/100 ML BAG IV ONE (07:57)
[2021-04-30] MEDS: Senna TAB 8.6 mg TAB PO SCH (08:48)
[2021-04-30] MEDS: Pantoprazole VIAL 40 MG VIAL IV SCH (08:49)
[2021-04-30] MEDS ORDERED: Potassium Chlor 10 meq TAB PO ONE (09:00)
[2021-04-30 14:01] LABS: Hematocrit 30 % (35-47); Hemoglobin 10.3 g/dL (12.0-16.0); Mean Corpuscular HGB Conc 34 g/dL (31-36); Mean Corpuscular Hemoglobin 34 pg (27-31); Mean Corpuscular Volume 101 fL (80-97); Mean Platelet Volume 9.1 fL (7.4-10.4); Platelet Count 175 10^3/uL (150-450); Red Blood Count 3.02 10^6 /uL (3.70-4.87); Red Cell Distribution Width 13 % (10-15); White Blood Count 4.4 10^3/uL (3.5-10.8)
[2021-04-30] MEDS: Folic Acid IV 1 MG in NS 0.9% 50 ML 50 ML IVPB SCH (14:11)
[2021-04-30] MEDS: Thiamine 100 MG/ML 2 ml VIAL 250 MG in NS 0.9% 100 ml BAG 100 ML IV SCH (14:12)
[2021-04-30 15:53] VITALS: BP 133/73
== END 2021-04-30 17:53 | disposition home or self-care (01) | DRG 192 ==
LOC: ED 14:22 → ICU 16:23 → MEDTELE 04-24 18:10
PROVIDERS: ADMIT Internal Medicine Critical Care Medicine; ATTEND Internal Medicine

== ENCOUNTER 2021-09-29 15:56 | Inpatient (IN) ==
[2021-09-29 16:52] LABS: ABS Eosinophils 0.1 10^3/ul (0-0.6); ABS Lymphocytes 0.8 10^3/ul (1.0-4.8); ABS Monocytes 0.5 10^3/ul (0-0.8); ABS Neutrophils 3.7 10^3/ul (1.5-7.7); Eosinophil % 1.2 %; Hematocrit 33 % (35-47); Lymphocyte % 16.7 %; Mean Corpuscular HGB Conc 37 g/dL (31-36); Mean Corpuscular Hemoglobin 29 pg (27-31); Mean Corpuscular Volume 79 fL (80-97); Mean Platelet Volume 6.8 fL (7.4-10.4); Nucleated Red Blood Cells % 0.1; Platelet Count 266 10^3/uL (150-450); Red Blood Count 4.16 10^6 /uL (3.70-4.87); Red Cell Distribution Width 14 % (10-15); White Blood Count 5.1 10^3/uL (3.5-10.8)
[2021-09-29 17:09] LABS: Albumin 4.6 g/dL (3.2-5.2); Albumin/Globulin Ratio 1.5 (1-3); Calcium 9.4 mg/dL (8.6-10.3); Globulin 3.1 g/dL (2-4); Magnesium 1.7 mg/dL (1.9-2.7); Potassium 3.2 mmol/L (3.5-5.0); Total Bilirubin 0.6 mg/dL (0.2-1.0); Total Protein 7.7 g/dL (6.4-8.9)
[2021-09-29] MEDS ORDERED: Potassium Chlor 20 meq TAB.ER PO ONE (17:14)
[2021-09-29 17:35] LABS: Alcohol, S < 13 mg/dL (<13)
[2021-09-29 18:22] LABS: Troponin I 0.04 ng/mL (<0.03)
[2021-09-29 20:00] LABS: Rapid COVID-19 Molecular Undetected (Undetected)
[2021-09-29 21:27] LABS: Blood Urea Nitrogen 10 mg/dL (6-24); CO2 Carbon Dioxide 26 mmol/L (22-32); Calcium 8.8 mg/dL (8.6-10.3); Chloride 82 mmol/L (101-111); Glucose 100 mg/dL (70-100)
[2021-09-29 21:35] LABS: Anion Gap 9 mmol/L (2-11); Troponin I 0.15 ng/mL (<0.03)
[2021-09-29 21:36] LABS: Sodium 117 mmol/L (135-145)
[2021-09-29] MEDS: Enoxaparin 40 MG/0.4 ML SYR SUBCUT SCH (21:43)
[2021-09-29] MEDS ORDERED: NS 0.9% 1000 ml BAG 1,000 ML IV SCH (21:45)
[2021-09-29] MEDS: KCL 20 MEQ/100 ML IVPREMIX 20 MEQ/100 ML BAG IV SCH (22:23)
[2021-09-29] MEDS ORDERED: Lactated Ringers 1000 ml BAG 1,000 ML IV SCH (23:00)
[2021-09-30] MEDS: KCL 20 MEQ/100 ML IVPREMIX 20 MEQ/100 ML BAG IV SCH (00:35)
[2021-09-30 01:29] LABS: Sodium 116 mmol/L (135-145); Troponin I 0.19 ng/mL (<0.03)
[2021-09-30 04:58] LABS: ABS Lymphocytes 0.9 10^3/ul (1.0-4.8); ABS Monocytes 0.4 10^3/ul (0-0.8); Hematocrit 30 % (35-47); Hemoglobin 10.5 g/dL (12.0-16.0); Lymphocyte % 20.2 %; Mean Corpuscular HGB Conc 35 g/dL (31-36); Mean Corpuscular Hemoglobin 29 pg (27-31); Mean Corpuscular Volume 82 fL (80-97); Mean Platelet Volume 6.9 fL (7.4-10.4); Platelet Count 180 10^3/uL (150-450); Red Blood Count 3.68 10^6 /uL (3.70-4.87); Red Cell Distribution Width 13 % (10-15); White Blood Count 4.3 10^3/uL (3.5-10.8)
[2021-09-30 05:44] LABS: Calcium 8.7 mg/dL (8.6-10.3); Magnesium 1.7 mg/dL (1.9-2.7); Potassium 3.7 mmol/L (3.5-5.0)
[2021-09-30] MEDS ORDERED: Lactated Ringers 1000 ml BAG 1,000 ML IV SCH (05:51)
[2021-09-30] MEDS ORDERED: Potassium Chlor 20 meq TAB.ER PO ONE (05:51)
[2021-09-30] MEDS ORDERED: Magnesium Sulfate IV 3 GM in NS 0.9% 100 ml BAG 100 ML IVPB ONE (05:52)
[2021-09-30 08:55] LABS: Sodium 120 mmol/L (135-145)
[2021-09-30] MEDS ORDERED: levETIRAcetam 1000MG IVPREMIX 1,000 MG/100 ML BAG IVPB ONE (12:35)
[2021-09-30 14:59] LABS: Calcium 8.4 mg/dL (8.6-10.3); Potassium 3.8 mmol/L (3.5-5.0)
[2021-09-30] MEDS: levETIRAcetam IV 750 MG in NS 0.9% 100 ml BAG 100 ML IVPB SCH (21:14)
[2021-09-30] MEDS: Enoxaparin 40 MG/0.4 ML SYR SUBCUT SCH (21:14)
[2021-10-01 05:54] LABS: ABS Eosinophils 0.1 10^3/ul (0-0.6); ABS Lymphocytes 0.8 10^3/ul (1.0-4.8); ABS Monocytes 0.4 10^3/ul (0-0.8); ABS Neutrophils 2.5 10^3/ul (1.5-7.7); Eosinophil % 1.7 %; Hematocrit 30 % (35-47); Hemoglobin 10.6 g/dL (12.0-16.0); Lymphocyte % 22.3 %; Mean Corpuscular HGB Conc 35 g/dL (31-36); Mean Corpuscular Hemoglobin 29 pg (27-31); Mean Corpuscular Volume 82 fL (80-97); Nucleated Red Blood Cells % 0.1; Platelet Count 169 10^3/uL (150-450); Red Blood Count 3.69 10^6 /uL (3.70-4.87); Red Cell Distribution Width 14 % (10-15); White Blood Count 3.8 10^3/uL (3.5-10.8)
[2021-10-01 06:15] LABS: Albumin/Globulin Ratio 1.6 (1-3); Calcium 9.1 mg/dL (8.6-10.3); Globulin 2.5 g/dL (2-4); Total Bilirubin 0.3 mg/dL (0.2-1.0); Total Protein 6.5 g/dL (6.4-8.9)
[2021-10-01 08:47] LABS: Magnesium 1.8 mg/dL (1.9-2.7)
[2021-10-01] MEDS: levETIRAcetam IV 750 MG in NS 0.9% 100 ml BAG 100 ML IVPB SCH (09:27)
[2021-10-01] MEDS ORDERED: Magnesium Sulfate 2 gm BAG 2 GM/50 ML BAG IVPB ONE (09:34)
[2021-10-01 13:54] LABS: Calcium 8.9 mg/dL (8.6-10.3); Potassium 4.4 mmol/L (3.5-5.0)
[2021-10-01] MEDS: Enoxaparin 40 MG/0.4 ML SYR SUBCUT SCH (19:40)
[2021-10-02 06:53] LABS: ABS Eosinophils 0.1 10^3/ul (0-0.6); ABS Monocytes 0.4 10^3/ul (0-0.8); Eosinophil % 3.2 %; Hematocrit 31 % (35-47); Hemoglobin 10.8 g/dL (12.0-16.0); Lymphocyte % 27.9 %; Mean Corpuscular HGB Conc 35 g/dL (31-36); Mean Corpuscular Hemoglobin 29 pg (27-31); Mean Corpuscular Volume 83 fL (80-97); Mean Platelet Volume 7.1 fL (7.4-10.4); Platelet Count 167 10^3/uL (150-450); Red Blood Count 3.73 10^6 /uL (3.70-4.87); Red Cell Distribution Width 14 % (10-15); White Blood Count 3.5 10^3/uL (3.5-10.8)
[2021-10-02 07:04] LABS: Potassium 4.4 mmol/L (3.5-5.0)
[2021-10-02 07:05] LABS: Calcium 9.4 mg/dL (8.6-10.3); Magnesium 1.8 mg/dL (1.9-2.7)
[2021-10-02 12:58] LABS: Potassium 4.5 mmol/L (3.5-5.0)
[2021-10-02] MEDS: Enoxaparin 40 MG/0.4 ML SYR SUBCUT SCH (20:36)
[2021-10-03 06:11] LABS: Calcium 9.3 mg/dL (8.6-10.3); Magnesium 1.7 mg/dL (1.9-2.7); Potassium 4.3 mmol/L (3.5-5.0)
[2021-10-03] MEDS ORDERED: Magnesium Sulfate 2 gm BAG 2 GM/50 ML BAG IVPB ONE (08:12)
[2021-10-03] MEDS: Enoxaparin 40 MG/0.4 ML SYR SUBCUT SCH (19:56)
[2021-10-04 08:33] LABS: Calcium 9.5 mg/dL (8.6-10.3); Magnesium 1.9 mg/dL (1.9-2.7); Potassium 4.5 mmol/L (3.5-5.0)
[2021-10-04 11:33] VITALS: BP 109/65
== END 2021-10-04 12:08 | disposition home or self-care (01) | DRG 425 ==
LOC: ED 15:56 → SUATTDRO 18:46 → EDHOLD 18:46 → ICU 19:15 → MEDTELE 09-30 18:58
PROVIDERS: ADMIT Internal Medicine; ATTEND Internal Medicine